=== PATIENT | female | born 1950 | race Two or more races ===

== ENCOUNTER 2020-06-28 10:08 | Outpatient (REF) | payer MEDICARE, MEDICAID, SELFPAY ==
--- NOTE | 2020-06-28 | US_ITS ---
EXAMINATION: US ABDOMEN COMPLETE CLINICAL INFORMATION: Right upper quadrant pain. Evaluate for cholelithiasis. COMPARISON: None TECHNIQUE: Real-time imaging of the abdominal viscera. FINDINGS: PANCREAS: Visualized portions unremarkable. ABDOMINAL AORTA: Unremarkable. INFERIOR VENA CAVA: Unremarkable. LIVER: Unremarkable. GALLBLADDER: Incompletely distended containing moderate sludge and gallstones measuring up to 3.8 cm (image 34, series 1). No mural thickening or pericholecystic fluid. COMMON BILE DUCT: Normal in caliber measuring 0.4 cm in diameter. RIGHT KIDNEY: 9.2 cm. An echogenic focus in the lower pole measures 0.2 cm. LEFT KIDNEY: 10.2 cm. Unremarkable. SPLEEN: Normal. The spleen measures 8.6 cm in maximum dimension. FREE FLUID: None. IMPRESSION: 1. Cholelithiasis and significant sludge without evidence for acute cholecystitis. 2. Nonobstructing 0.2 cm left lower pole adrenal calculus.
== END 2020-06-28 10:09 | disposition home or self-care (01) ==
LOC: HO.US 10:08
PROVIDERS: PCP Internal Medicine; Visit Provider Internal Medicine
DX: K81.0 Acute cholecystitis (principal)
CPT/HCPCS: 76700

== ENCOUNTER 2020-07-08 12:24 | Outpatient (REF) | payer MEDICARE, MEDICAID, SELFPAY | END 2020-07-08 12:25 | disposition home or self-care (01) | LOC: HO.HMGCLDS 12:24 | PROVIDERS: PCP Internal Medicine; Visit Provider Internal Medicine | DX: Z20.828 Contact with and (suspected) exposure to other viral communicable diseases (principal) | CPT/HCPCS: 87635 ==

== ENCOUNTER → 2020-07-28 14:52 | Outpatient (BNVA) | payer MEDICARE, MEDICAID, SELFPAY | PROVIDERS: PCP Internal Medicine; Visit Provider Surgery | DX: K80.20 Calculus of gallbladder without cholecystitis without obstruction (principal) | CPT/HCPCS: 99212 ==

== ENCOUNTER → 2020-09-23 10:27 | Outpatient (BNVA) | payer MEDICARE, MEDICAID, SELFPAY | PROVIDERS: PCP Internal Medicine; Visit Provider Urology | DX: N20.0 Calculus of kidney (principal) | CPT/HCPCS: 99202 ==

== ENCOUNTER → 2021-01-06 13:51 | Outpatient (BNVA) | payer MEDICARE, MEDICAID, SELFPAY | PROVIDERS: PCP Internal Medicine; Visit Provider Internal Medicine ==

== ENCOUNTER 2021-11-14 12:27 | Outpatient (REF) | payer MEDICARE, MEDICAID, SELFPAY ==
--- NOTE | ~2021-11-14 | US_ITS ---
EXAMINATION: US VENOUS ULTRASOUND WITH DOPPLER LOWER EXTREMITY, RIGHT CLINICAL INFORMATION: Personal history of venous thrombosis. COMPARISON: None TECHNIQUE: Ultrasound of the deep veins is performed from the hip to the calf with compression sonography and color and pulse Doppler assessment. Spectral analysis with color-flow imaging is performed. FINDINGS: There is normal venous compression and respiratory variation and augmented flow. The visualized common femoral vein, superficial femoral vein, profunda femoral vein, popliteal vein, and the trifurcation region shows no evidence of deep venous thrombosis. There is no significant popliteal fossa cyst. The peroneal vein is suboptimally visualized. If the patient's symptoms persist, followup ultrasound in 5 days 7 days might be of value to exclude proximal propagation from a non-visualized calf vein. US/US venous duplex LE RT IMPRESSION: No DVT demonstrated in the right lower extremity.
== END 2021-11-14 12:28 | disposition home or self-care (01) ==
LOC: HO.US 12:27
PROVIDERS: PCP Internal Medicine; Visit Provider Family Medicine
DX: M79.89 Other specified soft tissue disorders (principal); R23.8 Other skin changes; Z86.718 Personal history of other venous thrombosis and embolism
CPT/HCPCS: 93971

== ENCOUNTER 2022-07-18 15:43 | Outpatient (REF) | payer MEDICARE, MEDICAID, SELFPAY ==
--- NOTE | ~2022-07-18 | MM_ITS ---
EXAMINATION: MM SCREENING DIGITAL BREAST TOMOSYNTHESIS, BILATERAL CLINICAL INFORMATION: Screening. Asymptomatic. The lifetime risk of breast cancer based on the Tyrer-Cuzick Model is 3.1%. COMPARISON: Mammography: March 28, 2019 and studies dating back to July 29, 2000 TECHNIQUE: Digital breast tomosynthesis is performed in both the craniocaudal and mediolateral oblique views along with computer-aided detection (CAD). Synthesized 2D images are generated from the tomosynthesis. FINDINGS: The breasts are heterogeneously dense, which may obscure small masses (ACR BI-RADS breast composition Category c). There are no significant masses, abnormal calcifications, or other abnormalities. MM/MM tomosynthesis screening BI IMPRESSION: No significant changes ASSESSMENT: BI-RADS 1: Negative RECOMMENDATION: Routine annual mammography screening. This patient's information was entered into a reminder system with a target due date for their next mammogram.
== END 2022-07-18 15:44 | disposition home or self-care (01) ==
LOC: HO.MAMMO 15:43
PROVIDERS: PCP Internal Medicine; Visit Provider Internal Medicine
DX: Z12.31 Encounter for screening mammogram for malignant neoplasm of breast (principal)
CPT/HCPCS: 77063; 77067

== ENCOUNTER 2022-08-06 06:23 | Emergency (ER) | payer MEDICARE, MEDICAID, SELFPAY ==
--- NOTE | ~2022-08-06 | CT_ITS ---
EXAMINATION: CT HEAD WITHOUT CONTRAST CLINICAL INFORMATION: Fall. COMPARISON: There are no prior studies available for comparison. TECHNIQUE: Multidetector CT imaging of the head was obtained without the use of intravenous contrast. Coronal and sagittal reformatted images were generated at the technologist workstation. This CT examination was performed using dose optimization techniques as appropriate, variously including the following: *Automated exposure control *Adjustment of mA and/or kV according to patient size (this includes techniques or standardized protocols for targeted exams where dose is matched to indication/reason for exam; i.e. extremities or head) *Use of iterative reconstruction technique DLP: 622 mGy-cm. FINDINGS: There are sequelae of a right parietal craniotomy. There is a JELLY MAKER shunt catheter from the right parietal region, with the tip in the posterior body of the right lateral ventricle. There is extensive gliosis and encephalomalacia in the right frontoparietal region, and there is adjacent ex vacuo dilatation of the trigone, and the occipital and temporal horns of the right lateral ventricle. Overall, the ventricles are prominent. In addition to the changes in the brain parenchyma described above, there are scattered areas of low attenuation in the periventricular and subcortical white matter, which are most consistent with chronic microvascular ischemic changes. There is no evidence of acute intracranial hemorrhage or territorial infarction. No abnormal mass-effect or midline shift is seen. Overall, saucedo-white matter differentiation is well preserved. No extra-axial fluid collections are identified. There are no acute osseous or soft tissue abnormalities. The mastoid air cells and visualized paranasal sinuses are well aerated.. CT/CT head/brain wo IV con IMPRESSION: 1. There are no acute bleeds or territorial infarcts. 2. There are sequelae of a right parietal craniotomy with extensive underlying cast encephalomalacia with adjacent ex vacuo dilatation of the right lateral ventricle. No new masses are demonstrated. 3. There is a right parietal JELLY MAKER shunt catheter with the tip in the body of the right lateral ventricle. 4. Overall there is diffuse volume loss and there are chronic microvascular ischemic changes.
[2022-08-06 06:55] VITALS: BP 116/58; PULSE 83; RESP 18; TEMP 36.7; O2SAT 98; BMI 21.0
[2022-08-06 07:31] LABS: COVID-19 Test Negative (Negative)
--- NOTE | 2022-08-06 08:17 | ED.GENADULT ---
HPI - General Adult General Chief complaint: General Medical Stated complaint: fall l leg pain Time Seen by Provider: 08/06/22 07:34 Source: patient and family (Daughter) Mode of arrival: ambulatory Limitations: no limitations History of Present Illness HPI narrative: 71 year-old female history of stroke left her with left hemiparesis mostly wheelchair bound, patient still able to ambulate and walk slowly at home, patient woke up trying to go to the bathroom and fell landing on her buttock no head injury no neck injuries. Related Data Home Medications Medication Instructions Recorded Confirmed acetaminophen 500 mg tablet 500 mg PO Q6H PRN 10/18/20 11/14/21 (Tylenol Extra Strength) Previous Rx's Medication Instructions Recorded hosptial bed #1 ea 10/18/20 sulfamethoxazole 800 1 tab PO Q12H 10 days #20 tabs 11/24/21 mg-trimethoprim 160 mg tablet (Bactrim DS) cefuroxime axetil 500 mg tablet 500 mg PO BID #14 tabs 08/06/22 Allergies Allergy/AdvReac Type Severity Reaction Status Date / Time No Known Allergies Allergy Verified 11/24/21 09:04 [No Known Allergies*] Review of Systems Review of Systems: All other systems are reviewed and are negative Constitutional: Reports as per HPI and Reports no additional constitutional complaints Eyes: Reports as per HPI and Reports no additional eye complaints Reports system reviewed and no additional complaints, except as documented Cardiovascular: Reports as per HPI and Reports no additional cardiovascular complaints Respiratory: Reports as per HPI and Reports no additional respiratory complaints Gastrointestinal: Reports as per HPI and Reports no additional gastrointestinal complaints Genitourinary: Reports no additional female genitourinary complaints Musculoskeletal: Reports no additional musculoskeletal complaints Skin/Breast: Reports system reviewed and no additional complaints, except as docu Psychiatric: Reports no additional psychiatric complaints Endocrine: Reports no additional endocrine complaints Hematologic/Lymphatic: Reports no additional hematologic/lymphatic complaints Allergic/Immunologic: Reports no additional allergic/immunologic complaints Reports system reviewed and no additional complaints, except as documented and Reports Abnormal speech present [facility] Past Medical History Medical History Acute cholecystitis Adrenal abnormality Cholelithiasis without cholecystitis History of stroke Left hemiplegia Renal calculi Surgical History Fracture of right hip requiring operative repair History of brain surgery Family History Family History Brother History of bone cancer History of pancreatic cancer Father History of skin cancer of unknown type Social History Social History Alcohol intake: never Advance Directives: Yes Advance Directives Information Provided: Yes Advance Directives on File: No Physical Exam ED Vital Signs: Vital Signs - 24 hr 08/06/22 06:55 08/06/22 12:18 Temperature 98.1 F 99.5 F Pulse Rate 83 82 Respiratory Rate 18 16 Blood Pressure 116/58 L 121/63 Pulse Oximetry 98 95 Oxygen Delivery Method Room Air Room Air BMI result Body Mass Index 21.0 Vital signs have been reviewed as appeared to be correct. Blood pressure normal. Heart rate normal. Respiration rate normal. Temperature normal. Oxygen saturation normal. Appearance: Alert. Oriented X3. No acute distress. Head: Normal external exam. Normocephalic. Atraumatic. No Gonzalez signs noted. No raccoon eyes noted Eyes: PERRLA. EOMI. Conjunctiva and sclera normal. Eyelids normal. ENT: TM's Normal. Pharynx normal. Uvula midline. Moist mucous membranes. No trismus noted. No drooling noted. No muffled voice noted. Neck: Normal inspection. Neck supple. FROM. No adenopathy. Thyroid Normal. No meningeal signs. No neck mass noted. CVS: Normal heart rate and rhythm. Heart sound normal. No murmurs noted. Pulses normal throughout. Respiratory: No respiratory distress. Painless inspiration. Breath sounds normal. No wheezes/rales/rhonchi noted. Chest nontender. No accessory muscle usage noted or decreased air movement noted. Abdomen: Soft and nontender. Bowel sounds normal in all 4 quadrants. No distention noted. No organomegaly noted. No visible injury noted. Back: No CVA tenderness. Full range of motion noted. Skin: Skin warm and dry. Normal skin color. Normal skin turgor. No rashes/lesions/lacerations noted. Extremities: No lower extremity edema. Extremities exhibit normal range of motion. Extremities nontender. Neuro: Oriented X 3. Cranial nerve exam: II-XII are grossly intact Pre-existing left hemipareses. No sensory deficit. Reflexes normal. Course Course Course Narrative: 71-year-old female mostly wheelchair-bound but able to ambulate few steps at home had mechanical fall in the bathroom this morning, no acute injuries, labs and UA revealed a UTI will start the patient on cefuroxime. Patient was able to take few steps walking in the ED at her baseline. Medications Administered Discontinued Medications Generic Name Dose Route Start Last Admin Trade Name Vinnieq PRN Reason Stop Dose Admin Cefuroxime Axetil 500 mg 08/06/22 11:48 08/06/22 12:20 Cefuroxime Axetil 500 Mg Tablet PO 08/06/22 11:49 500 mg ONCE ONE Administration Medical Decision Making Lab Data Lab results reviewed: Yes I reviewed the patient's lab results. Result diagrams: 08/06/22 08:19 08/06/22 08:20 Labs: Lab Results 08/06/22 08/06/22 08/06/22 Range/Units 07:11 08:19 08:20 WBC 4.9 (4.8-10.8) X10*3/uL RBC 4.44 (4.20-5.50) X10*6/uL Hgb 12.1 (12.0-16.0) g/dl Hct 39.8 (37.0-47.0) % MCV 89.6 (80.0-98.0) fL MCH 27.3 (27.0-33.0) pg MCHC 30.4 L (31.0-35.0) g/dl RDW 11.9 (11.0-16.0) % Plt Count 152 L (160-400) X10*3/uL MPV 9.9 (9.4-12.3) fL Absolute Nucleated RBC 0.000 (0.0-0.012) X10*3/uL Nucleated RBC % (auto) 0.0 (0.0-0.2) /100WBC Sodium 140 (135-145) mmol/L Potassium 4.6 (3.3-5.1) mmol/L Chloride 108 (96-108) mmol/L Carbon Dioxide 18 L (22-29) mmol/L Anion Gap 19 (12-20) BUN 14 (9-16) mg/dL Creatinine 0.79 (0.5-1.4) mg/dL Estim Creat Clear Calc 52.4 Estimated GFR > 60 Random Glucose 96 (60-115) mg/dL Calcium 9.3 (8.4-10.2) mg/dL Total Creatine Kinase 43 (26-140) U/L Troponin I High Sens (<3.5-17.0) ng/L Urine Color Urine Appearance Urine pH (5.0-9.0) Ur Specific Electra (1.005-1.025) Urine Protein (Neg-Trace) mg/dL Urine Glucose (UA) (Negative) mg/dL Urine Ketones (Negative) mg/dL Urine Blood (Negative) Urine Nitrite (Negative) Ur Leukocyte Esterase (Negative) Urine RBC (0-2) /HPF Urine WBC (0-5) /HPF Ur Squamous Epith Cells (0-2) /HPF Urine Bacteria (None Seen) Hyaline Casts (0-2) /LPF COVID-19 (NORI) Negative (Negative) COVID-19 Clin Com See Note 08/06/22 08/06/22 Range/Units 11:29 11:35 WBC (4.8-10.8) X10*3/uL RBC (4.20-5.50) X10*6/uL Hgb (12.0-16.0) g/dl Hct (37.0-47.0) % MCV (80.0-98.0) fL MCH (27.0-33.0) pg MCHC (31.0-35.0) g/dl RDW (11.0-16.0) % Plt Count (160-400) X10*3/uL MPV (9.4-12.3) fL Absolute Nucleated RBC (0.0-0.012) X10*3/uL Nucleated RBC % (auto) (0.0-0.2) /100WBC Sodium (135-145) mmol/L Potassium (3.3-5.1) mmol/L Chloride (96-108) mmol/L Carbon Dioxide (22-29) mmol/L Anion Gap (12-20) BUN (9-16) mg/dL Creatinine (0.5-1.4) mg/dL Estim Creat Clear Calc Estimated GFR Random Glucose (60-115) mg/dL Calcium (8.4-10.2) mg/dL Total Creatine Kinase (26-140) U/L Troponin I High Sens 4.4 (<3.5-17.0) ng/L Urine Color Yellow Urine Appearance Cloudy Urine pH 7.0 (5.0-9.0) Ur Specific Electra 1.020 (1.005-1.025) Urine Protein Negative (Neg-Trace) mg/dL Urine Glucose (UA) Negative (Negative) mg/dL Urine Ketones Negative (Negative) mg/dL Urine Blood Trace H (Negative) Urine Nitrite Negative (Negative) Ur Leukocyte Esterase Moderate (2+) H (Negative) Urine RBC 6-10 H (0-2) /HPF Urine WBC >50 H (0-5) /HPF Ur Squamous Epith Cells 0-2 (0-2) /HPF Urine Bacteria 4+ (None Seen) Hyaline Casts 0-2 (0-2) /LPF COVID-19 (NOIR) (Negative) COVID-19 Clin Com Imaging Data CT scan - head: Attestation: I personally reviewed and interpreted this imaging study as follows: Radiologist's impression: 1. There are no acute bleeds or territorial infarcts. ? 2. There are sequelae of a right parietal craniotomy with extensive underlying cast encephalomalacia with adjacent ex vacuo dilatation of the right lateral ventricle. No new masses are demonstrated. ? 3. There is a right parietal RED CAP shunt catheter with the tip in the body of the right lateral ventricle. ? 4. Overall there is diffuse volume loss and there are chronic microvascular ischemic changes. Discharge Plan Discharge Clinical Impression: UTI (urinary tract infection), Accident due to mechanical fall without injury Patient Disposition: Home, Self-Care Instructions: Urinary Tract Infection in Older Adults (ED) Prescriptions: New cefuroxime axetil 500 mg tablet 500 mg PO BID Qty: 14 0RF No Action acetaminophen [Tylenol Extra Strength] 500 mg tablet 500 mg PO Q6H PRN (DME) hosptial bed See Rx Instructions .Route .MEDSUPPLY Qty: 1 0RF Rx Instructions: As directed sulfamethoxazole-trimethoprim [Bactrim DS] 800-160 mg tablet 1 tab PO Q12H 10 Days Qty: 20 0RF Referrals: Elsa Denis MD [Primary Care Provider] -
[2022-08-06 08:32] LABS: Hematocrit 39.8 % (37.0-47.0); Hemoglobin 12.1 g/dl (12.0-16.0); Mean Corpuscular HGB Conc 30.4 g/dl (31.0-35.0); Mean Corpuscular Hemoglobin 27.3 pg (27.0-33.0); Mean Corpuscular Volume 89.6 fL (80.0-98.0); Mean Platelet Volume 9.9 fL (9.4-12.3); Platelet Count 152 X10*3/uL (160-400); Red Blood Count 4.44 X10*6/uL (4.20-5.50); Red Cell Distribution Width 11.9 % (11.0-16.0); White Blood Count 4.9 X10*3/uL (4.8-10.8)
[2022-08-06 09:46] LABS: Anion Gap 19 (12-20); Blood Urea Nitrogen 14 mg/dL (9-16); Calcium 9.3 mg/dL (8.4-10.2); Carbon Dioxide 18 mmol/L (22-29); Chloride 108 mmol/L (96-108); Creatinine Clr Calc Pharmacy 52.4; Estimated Glomerular Filt Rate > 60; Glucose Random 96 mg/dL (60-115); Potassium 4.6 mmol/L (3.3-5.1); Sodium 140 mmol/L (135-145)
[2022-08-06 11:35] LABS: Appearance Urine Cloudy; Color Urine Yellow; Glucose Urine UA Negative (Negative); Leukocyte Esterase Urine Moderate (2+) (Negative); Nitrite Urine Negative (Negative); UMIC TRIGGER UACC YES; Urine Blood Trace (Negative); Urine Ketones Negative (Negative); Urine Protein Negative (Neg-Trace)
[2022-08-06 11:38] LABS: Bacteria Urine 4+ (None Seen); Hyaline Casts Urine 0-2 /LPF (0-2); Squamous Epithelial Cell Urine 0-2 /HPF (0-2); UACC Culture Trigger YES; WBC Urine >50 /HPF (0-5)
[2022-08-06 12:02] LABS: Troponin-I High Sensitivity 4.4 ng/L (<3.5-17.0)
[2022-08-06 12:18] VITALS: BP 121/63; PULSE 82; RESP 16; TEMP 37.5; O2SAT 95
== END 2022-08-06 14:56 | disposition home or self-care (01) ==
PROVIDERS: Emergency Provider Emergency Medicine; PCP Internal Medicine
DX: S39.92XA Unspecified injury of lower back, initial encounter (principal); N39.0 Urinary tract infection, site not specified; R51.9 Headache, unspecified; W05.0XXA Fall from non-moving wheelchair, initial encounter; Y93.9 Activity, unspecified; Y92.9 Unspecified place or not applicable; Y99.9 Unspecified external cause status; Z20.822 Contact with and (suspected) exposure to COVID-19; Z79.899 Other long term (current) drug therapy
CPT/HCPCS: 36415; 70450; 80048; 81001; 82550; 84484; 85027; 87086; 87088; 87186; 87635; 99283

== ENCOUNTER 2022-09-29 14:25 | Outpatient (REF) | payer MEDICARE, MEDICAID, SELFPAY ==
--- NOTE | ~2022-09-29 | MM_ITS ---
EXAMINATION: BONE DENSITOMETRY CLINICAL INDICATION: Asymptomatic menopausal state. COMPARISON: None (current study represents initial baseline exam). TECHNIQUE: Using a [employer]ex DXA System (software version: 13.1) manufactured by [employer], dual-energy x-ray absorptiometry was performed of the lumbar spine and left hip. The images are of good technical quality. Summary results are attached. FINDINGS: AP SPINE L1-L4: BMD 0.857 g/cm2, Z-score -0.6, T-score -2.7, osteoporosis. LEFT FEMUR, NECK: BMD 0.564 g/cm2, Z-score -1.4, T-score -3.4, osteoporosis. LEFT FEMUR, TOTAL: BMD 0.560 g/cm2, Z-score -1.8, T-score -3.6, osteoporosis. IDENTIFIED RISK FACTORS: Osteoporosis. Recurrent falls. Low calcium intake. Parental hip fracture. Secondary osteoporosis (early menopause). Menopause. Left oophorectomy. HISTORY OF FRACTURE: Hip. Wrist. MEDICATIONS: None listed. MM/XR DEXA axial skeleton IMPRESSION: 1. DIAGNOSIS: Osteoporosis based on the lowest T-score value of -3.6 in the total femur applying World Health Organization criteria. 2. 10-YEAR FRACTURE RISK PREDICTION, FRAX: According to the guidelines, FRAX calculation should only be performed on patients in the osteopenia bone density category. Therefore, FRAX was not performed on this patient.? 3. Treatment Recommendations: NOF guidelines recommend consideration for treatment in postmenopausal women and men age 50 and older presenting with the following: -A hip or vertebral (clinical or morphometric) fracture. -T-score less than or equal to -2.5 at the femoral neck or spine after appropriate evaluation to exclude secondary causes. -Low bone mass at the hip or spine and a 10-year fracture probability by FRAX of greater than or equal to 3% for hip fracture or greater than or equal to 20% for major osteoporotic fracture based on the [place] adapted WHO algorithm. 4. Other Recommendations: All treatment decisions require clinical judgment and consideration of individual patient factors, including patient preferences, comorbidities, previous drug use, risk factors not captured in the FRAX model (e.g. frailty, falls, vitamin D deficiency, increased bone turnover, interval significant decline in bone density) and possible under or overestimation of fracture risk by FRAX. Additional medical evaluation for secondary cause of low bone mineral density may be appropriate. FUTURE SCAN RECOMMENDATION: People with diagnosed cases of osteoporosis or at high risk for fracture should have regular bone mineral density tests. For patients eligible for Medicare, routine testing is allowed once every 2 years. The testing frequency can be increased to one year for patients who have rapidly progressing disease, those who are receiving or discontinuing medical therapy to restore bone mass, or have additional risk factors.
== END 2022-09-29 14:26 | disposition home or self-care (01) ==
LOC: HO.MAMMO 14:25
PROVIDERS: PCP Internal Medicine; Visit Provider Nurse Practitioner Family
DX: Z13.820 Encounter for screening for osteoporosis (principal); Z78.0 Asymptomatic menopausal state
CPT/HCPCS: 77080

== ENCOUNTER → 2022-10-20 10:57 | Outpatient (BNVA) | payer MEDICARE, MEDICAID, SELFPAY | PROVIDERS: PCP Internal Medicine; Visit Provider Internal Medicine Endocrinology, Diabetes & Metabolism | DX: M81.0 Age-related osteoporosis without current pathological fracture (principal) | CPT/HCPCS: 99202 ==

== ENCOUNTER 2022-10-20 12:06 | Outpatient (REF) | payer MEDICARE, MEDICAID, SELFPAY ==
[2022-10-20 14:30] LABS: Phosphorus 3.6 mg/dL (2.7-4.5)
[2022-10-20 14:48] LABS: Free T4 (Free Thyroxine) 1.27 ng/dL (0.71-1.85); Thyroid Stimulating Hormone 1.44 uIU/mL (0.32-4.0); Vitamin D 25-OH Total 22.4 ng/mL (>30)
[2022-10-23 14:48] LABS: Prot Elec - Albumin 3.9 g/dL (3.8-4.8); Prot Elec - Alpha1 0.3 g/dL (0.2-0.3); Prot Elec - Alpha2 0.9 g/dL (0.5-0.9); Prot Elec - Beta 1 0.4 g/dL (0.4-0.6); Prot Elec - Beta 2 0.3 g/dL (0.2-0.5); Prot Elec - Total Protein 6.7 g/dL (6.1-8.1)
== END 2022-10-20 12:07 | disposition home or self-care (01) ==
LOC: HO.10HDL 12:06
PROVIDERS: Visit Provider Internal Medicine Endocrinology, Diabetes & Metabolism
DX: M81.0 Age-related osteoporosis without current pathological fracture (principal); R53.83 Other fatigue; R53.81 Other malaise
CPT/HCPCS: 82306; 84100; 84165; 84439; 84443; 86335

== ENCOUNTER 2022-10-23 07:59 | Outpatient (REF) | payer MEDICARE, MEDICAID, SELFPAY ==
[2022-10-23 17:52] LABS: Creatinine, 24Hr Urine 0.5 G/Day (1.0-2.0); Total Volume 24 Hour Urine 500 mL
[2022-10-25 17:18] LABS: Calcium, 24 Hr Urine 57 mg/24 h; Calcium/Creatinine Ratio 105 mg/g creat (30-275); Creatinine 24Hr Urine 0.54 g/24 h (0.50-2.15)
== END 2022-10-23 08:00 | disposition home or self-care (01) ==
LOC: HO.10HDLNP 07:59
PROVIDERS: Visit Provider Internal Medicine Endocrinology, Diabetes & Metabolism
DX: M81.0 Age-related osteoporosis without current pathological fracture (principal)
CPT/HCPCS: 82340; 82570

== ENCOUNTER 2022-11-13 07:32 | Outpatient (REF) | payer MEDICARE, MEDICAID, SELFPAY ==
[2022-11-13 08:53] LABS: Cholesterol 237 mg/dL; HDL Cholesterol 73 mg/dL; LDL Cholesterol Calculated 143 mg/dl; Triglycerides 107 mg/dL
[2022-11-13 09:11] LABS: TSH reflex Free T4 3.18 uIU/mL (0.32-4.0)
== END 2022-11-13 07:33 | disposition home or self-care (01) ==
LOC: HO.LAB 07:32
PROVIDERS: PCP Internal Medicine; Visit Provider Nurse Practitioner Family
DX: Z00.00 Encounter for general adult medical examination without abnormal findings (principal); Z78.0 Asymptomatic menopausal state
CPT/HCPCS: 36415; 80061; 82306; 84443

== ENCOUNTER → 2023-01-23 09:47 | Outpatient (BNVA) | payer MEDICARE, MEDICAID, SELFPAY | PROVIDERS: PCP Internal Medicine; Visit Provider Internal Medicine Endocrinology, Diabetes & Metabolism | DX: M81.0 Age-related osteoporosis without current pathological fracture (principal) | CPT/HCPCS: 99212 ==

== ENCOUNTER → 2023-03-20 10:02 | Outpatient (BNVA) | payer MEDICARE, MEDICAID, SELFPAY | PROVIDERS: PCP Internal Medicine; Visit Provider Internal Medicine Endocrinology, Diabetes & Metabolism | DX: M81.0 Age-related osteoporosis without current pathological fracture (principal) | CPT/HCPCS: 96372; J3111 ==

== ENCOUNTER 2023-03-20 10:50 | Outpatient (REF) | payer MEDICARE, MEDICAID, SELFPAY ==
[2023-03-20 14:21] LABS: Vitamin D 25-OH Total 59.5 ng/mL (>30)
== END 2023-03-20 10:51 | disposition home or self-care (01) ==
LOC: HO.10HDL 10:50
PROVIDERS: Visit Provider Internal Medicine Endocrinology, Diabetes & Metabolism
DX: M81.0 Age-related osteoporosis without current pathological fracture (principal)
CPT/HCPCS: 36415; 82306

== ENCOUNTER 2023-03-29 10:12 | Emergency (ER) | payer OTHER, SELFPAY ==
[2023-03-29 10:20] VITALS: BP 106/55; PULSE 106; RESP 16; TEMP 37.5; O2SAT 106; BMI 21.5
[2023-03-29 10:47] VITALS: BP 127/59; PULSE 100; RESP 16; TEMP 37.4; O2SAT 97
--- NOTE | 2023-03-29 10:48 | PC.NURSE ---
pt axox4, PERRLA, skin warm and dry, color appropriate to ethnicity. weakness of L. upper and lower extremities, pt states this is her baseline following stroke 2 years ago. good strength of R. upper and lower extremities. pt reports increased weakness/difficulty walking x 1 month, worsening x 3 days. also reports nasal congestion and dry cough x 3 days. daughter at bedside; both deny having questions at this time, awaiting primary eval.
--- NOTE | 2023-03-29 10:58 | ED.WEAKNESS ---
HPI - Weakness General Chief complaint: Weakness Stated complaint: L side weakness Time Seen by Provider: 03/29/23 10:35 History of Present Illness HPI Narrative: Patient is a 72-year-old female with a history of CVA with left-sided weakness in the past. History of high cholesterol patient presented today with having coughing upper respiratory symptoms generalized malaise this been ongoing for the last 2 days. Patient had a low-grade fever generalized malaise. Feels the left side baseline is weak but is slightly weaker than usual. Patient from home. No pain on urination. No frequency. No chest pain or diaphoresis. Related Data Home Medications Medication Instructions Recorded Confirmed cholecalciferol (vitamin D3) 50 50 mcg PO DAILY 01/23/23 mcg (2,000 unit) chewable tablet Previous Rx's Medication Instructions Recorded aspirin 81 mg chewable tablet 81 mg PO DAILY 90 days #90 tabs 11/22/22 atorvastatin 10 mg tablet 10 mg PO BEDTIME 90 days #90 tabs 11/22/22 acetaminophen 325 mg tablet 650 mg PO Q6H PRN pain #60 tabs 11/28/22 (Tylenol) cane #1 ea 11/28/22 diclofenac sodium 1 % topical gel 2 g topical QID PRN pain #100 grams 11/28/22 (Arthritis Pain (diclofenac)) romosozumab-aqqg 210 mg/2.34 210 mg (2.34 mL) subcut .monthly 02/13/23 mL(105 mg/1.17 mL x2)subcutaneous #2.34 mL syringe (Evenity) Allergies Allergy/AdvReac Type Severity Reaction Status Date / Time No Known Allergies Allergy Verified 01/23/23 10:01 [No Known Allergies*] Review of Systems Review of Systems: Positive left-sided weakness Positive for low-grade fever Positive coughing congestion upper respiratory symptoms Yes all other systems are reviewed and are negative [facility] Past Medical History Attestation statement: The following information was validated with the patient. Medical History Acute cholecystitis Adrenal abnormality Cholelithiasis without cholecystitis History of stroke Left hemiplegia Renal calculi Surgical History Fracture of right hip requiring operative repair History of brain surgery Family History Family History Brother History of bone cancer History of pancreatic cancer Father History of skin cancer of unknown type Social History Social History Housing: Apartment Alcohol intake: never Patient Tobacco Use Status: Never used Tobacco Smoked in Last 30 Days: No e-Cigarette/Vaping Use: Never Used Second Hand Smoke Exposure: No Use of substances other than those prescribed or required for medical reasons: No Advance Directives: No service: No Current occupational status: disabled Cognitive needs: No Hearing needs: No Vision needs: Yes Physical Exam Vital Signs: Vital Signs: Last Vital Signs Temp 96.7 F L 03/29/23 13:37 Pulse 72 03/29/23 13:37 Resp 15 03/29/23 13:37 BP 115/56 L 03/29/23 13:37 Pulse Ox 98 03/29/23 13:37 O2 Del Method Room Air 03/29/23 13:37 BMI result Body Mass Index 21.5 Appearance: Alert. Oriented X3. No acute distress. Eyes: Pupils equal, round and reactive to light. ENT: Pharynx normal. Neck: Normal inspection. Neck supple. No lymph nodes noted. No crepitus CVS: Normal heart rate and rhythm. Pulses normal. Normal S1 and S2 Respiratory: No respiratory distress. Breath sounds normal. No Wheezing. No rales Abdomen: Soft and nontender. No rigidity. No distention. good BS x4 Skin: Skin warm and dry. Normal skin color. Normal skin turgor. Extremities: No lower extremity edema. Neurovascular intact to all extremities. No Lacerations. No Rash Neuro: Oriented X 3. Positive weakness noted on the left side patient has had hand grasp slightly weaker on the left versus the right rapid alternating movement off on the left side versus the right patient unable to keep up lower extremity against gravity for 10 seconds. Medications Administered Discontinued Medications Generic Name Dose Route Start Last Admin Trade Name Freq PRN Reason Stop Dose Admin Acetaminophen 975 mg 03/29/23 10:58 03/29/23 11:25 Acetaminophen 325 Mg Tablet PO 03/29/23 10:59 975 mg ONCE ONE Administration Medical Decision Making Medical Decision Making MDM Narrative: Positive coughing upper respiratory symptoms generalized malaise she has a previous history of left-sided weakness from a CVA. Patient thinks the left-sided weakness may be slightly worse. CT scan of the head showed no acute bleeding. My interpretation of patient's chest x-ray is grossly negative. O2 sat is 98% on room air. Patient COVID test came back positive. Likely causing the low-grade fever the generalized malaise a slightly increased weakness on 1 side. Patient is vaccinated x2 boosted x1 risk and benefit of getting antiviral medication explained to patient at this time would like to hold off on the antiviral medication given patient is vaccinated boosted. Patient is in stable condition. Will discharge home. Patient's urine showed no signs of infection Differential Diagnosis Differential Diagnoses: The differential diagnosis associated with the presentation includes Urinary tract infection, upper respiratory infection, pneumonia, CVA, COVID Admission/Observation Consideration of admission/observation: Escalation of care including admission/observation considered Patient's O2 sat is normal no need for admission Lab Data MDM Lab Attestation statement: I reviewed the patient's lab results. 03/29/23 11:18 03/29/23 11:18 Labs: Lab Results 03/29/23 03/29/23 03/29/23 Range/Units 11:18 11:18 11:18 WBC 5.3 (4.8-10.8) X10*3/uL RBC 5.53 H D (4.20-5.50) X10*6/uL Hgb 14.8 D (12.0-16.0) g/dl Hct 48.4 H D (37.0-47.0) % MCV 87.5 (80.0-98.0) fL MCH 26.8 L (27.0-33.0) pg MCHC 30.6 L (31.0-35.0) g/dl RDW 11.9 (11.0-16.0) % Plt Count 189 (160-400) X10*3/uL MPV 9.6 (9.4-12.3) fL Immature Gran % (Auto) 0.2 (0.0-0.4) % Neut % (Auto) 69.5 (45-73) % Lymph % (Auto) 17.2 L (20-40) % [place] % (Auto) 12.3 H (2-11) % Eos % (Auto) 0.4 (0-4) % Baso % (Auto) 0.4 (0-2) % Lymph # (Auto) 0.9 L (1.2-4.9) X10*3/uL [place] # (Auto) 0.7 (0.1-1.2) X10*3/uL Eos # (Auto) 0.0 (0.0-0.4) X10*3/uL Baso # (Auto) 0.0 (0.0-0.2) X10*3/uL Abs Immat Gran (auto) 0.01 (0.00-0.03) X10*3/uL Absolute Neuts (auto) 3.7 (2.0-8.3) x10*3/uL Absolute Nucleated RBC 0.000 (0.0-0.012) X10*3/uL Nucleated RBC % (auto) 0.0 (0.0-0.2) /100WBC PT 11.6 (10.0-13.1) SEC INR 1.0 (0.9-1.1) APTT 33.0 (26.0-36.4) SEC Sodium 139 (135-145) mmol/L Potassium 4.5 (3.3-5.1) mmol/L Chloride 105 (96-108) mmol/L Carbon Dioxide 25 (22-29) mmol/L Anion Gap 14 (12-20) BUN 9 (9-16) mg/dL Creatinine 0.84 (0.5-1.4) mg/dL Estim Creat Clear Calc 44.1 Estimated GFR > 60 POC Glucose (60-115) mg/dL Random Glucose 66 (60-115) mg/dL Calcium 10.2 D (8.4-10.2) mg/dL Phosphorus 2.3 L (2.7-4.5) mg/dL Magnesium 2.1 (1.6-2.6) mg/dL Total Creatine Kinase 70 (26-140) U/L Urine Color Urine Appearance Urine pH (5.0-9.0) Ur Specific [place] (1.005-1.025) Urine Protein (Neg-Trace) mg/dL Urine Glucose (UA) (Negative) mg/dL Urine Ketones (Negative) mg/dL Urine Blood (Negative) Urine Nitrite (Negative) Ur Leukocyte Esterase (Negative) Urine RBC (0-2) /HPF Urine WBC (0-5) /HPF Ur Squamous Epith Cells (0-2) /HPF Urine Bacteria (None Seen) Hyaline Casts (0-2) /LPF COVID-19 (NORI) (Negative) COVID-19 Clin Com 03/29/23 03/29/23 03/29/23 Range/Units 11:29 12:01 13:04 WBC (4.8-10.8) X10*3/uL RBC (4.20-5.50) X10*6/uL Hgb (12.0-16.0) g/dl Hct (37.0-47.0) % MCV (80.0-98.0) fL MCH (27.0-33.0) pg MCHC (31.0-35.0) g/dl RDW (11.0-16.0) % Plt Count (160-400) X10*3/uL MPV (9.4-12.3) fL Immature Gran % (Auto) (0.0-0.4) % Neut % (Auto) (45-73) % Lymph % (Auto) (20-40) % [place] % (Auto) (2-11) % Eos % (Auto) (0-4) % Baso % (Auto) (0-2) % Lymph # (Auto) (1.2-4.9) X10*3/uL [place] # (Auto) (0.1-1.2) X10*3/uL Eos # (Auto) (0.0-0.4) X10*3/uL Baso # (Auto) (0.0-0.2) X10*3/uL Abs Immat Gran (auto) (0.00-0.03) X10*3/uL Absolute Neuts (auto) (2.0-8.3) x10*3/uL Absolute Nucleated RBC (0.0-0.012) X10*3/uL Nucleated RBC % (auto) (0.0-0.2) /100WBC PT (10.0-13.1) SEC INR (0.9-1.1) APTT (26.0-36.4) SEC Sodium (135-145) mmol/L Potassium (3.3-5.1) mmol/L Chloride (96-108) mmol/L Carbon Dioxide (22-29) mmol/L Anion Gap (12-20) BUN (9-16) mg/dL Creatinine (0.5-1.4) mg/dL Estim Creat Clear Calc Estimated GFR POC Glucose 92 (60-115) mg/dL Random Glucose (60-115) mg/dL Calcium (8.4-10.2) mg/dL Phosphorus (2.7-4.5) mg/dL Magnesium (1.6-2.6) mg/dL Total Creatine Kinase (26-140) U/L Urine Color Yellow Urine Appearance Clear Urine pH 7.5 (5.0-9.0) Ur Specific [place] 1.010 (1.005-1.025) Urine Protein Negative (Neg-Trace) mg/dL Urine Glucose (UA) Negative (Negative) mg/dL Urine Ketones Negative (Negative) mg/dL Urine Blood Small (1+) H (Negative) Urine Nitrite Negative (Negative) Ur Leukocyte Esterase Trace H (Negative) Urine RBC 11-20 H (0-2) /HPF Urine WBC 0-5 (0-5) /HPF Ur Squamous Epith Cells 0-2 (0-2) /HPF Urine Bacteria None Seen (None Seen) Hyaline Casts 0-2 (0-2) /LPF COVID-19 (NORI) Positive A (Negative) COVID-19 Clin Com See Note Independent Interpretation I performed an independent interpretation of an: EKG and CT Scan Interpretation: My interpretation of patient's EKG showed a sinus rhythm heart rate is 90 [place] QRS QT within normal limits there is no acute ST segment elevation noted. CT scan of the head is grossly negative for any acute evidence of bleeding. Radiology Impression Discussion of test interpretation with radiology: I have reviewed the radiologist's reading. Prescription Management I considered prescription management with: Antiviral (Antiviral medication discussed with patient and family. I elected not to take the medication for now) Social Determinants Elderly patient Discharge Plan Discharge Clinical Impression: COVID-19 Patient Disposition: Home, Self-Care Instructions: COVID-19 (Coronavirus Disease 2019) (ED) Additional Instructions: Home isolation for at least 8 days from the onset of symptoms Prescriptions: No Action Evenity 210mg/2.34mL ( 105mg/1.17mLx2) syringe 210 mg subcut .monthly Qty: 2.34 11RF aspirin 81 mg tablet,chewable 81 mg PO DAILY 90 Days Qty: 90 3RF atorvastatin 10 mg tablet 10 mg PO BEDTIME 90 Days Qty: 90 1RF diclofenac sodium [Arthritis Pain (diclofenac)] 1 % gel 2 g topical QID PRN (Reason: pain) Qty: 100 0RF acetaminophen [Tylenol] 325 mg tablet 650 mg PO Q6H PRN (Reason: pain) Qty: 60 0RF (DME) cane Device See Rx Instructions .Route Qty: 1 0RF Rx Instructions: As directed cholecalciferol (vitamin D3) 50 mcg (2,000 unit) tablet,chewable 50 mcg PO DAILY Referrals: Elsa Denis MD [Primary Care Provider] - 04/02/23
[2023-03-29 13:02] VITALS: BP 107/59; PULSE 78; RESP 16; O2SAT 98
[2023-03-29 13:37] VITALS: BP 115/56; PULSE 72; RESP 15; TEMP 35.9; O2SAT 98
== END 2023-03-29 14:07 | disposition home or self-care (01) ==
PROVIDERS: Emergency Provider Emergency Medicine Emergency Medical Services; PCP Internal Medicine
DX: U07.1 COVID-19 (principal); R50.9 Fever, unspecified; I69.354 Hemiplegia and hemiparesis following cerebral infarction affecting left non-dominant side; E78.00 Pure hypercholesterolemia, unspecified; Z86.718 Personal history of other venous thrombosis and embolism; Z79.82 Long term (current) use of aspirin
CPT/HCPCS: 36415; 70450; 71045; 80048; 81001; 82550; 82947; 83735; 84100; 85025; 85610; 85730; 87635; 93005; 99284; 99285

== ENCOUNTER 2023-04-24 14:00 | Outpatient (AMB) | payer MEDICARE, MEDICAID, SELFPAY ==
--- NOTE | 2023-04-24 14:24 | AM.OFFVISNUR ---
Intake Intake Visit Reasons: evenity 2 Allergies No Known Allergies [No Known Allergies*] Allergy (Verified 01/23/23 10:01) Office Meds romosozumab-aqqg Performing Provider: Demetri Sánchez MD Administered by: Eyal Bartlett RN on 04/24/23 14:25 Dose Route Admin Location Lot Number Expiration Date [employer] Adolescent Specialist 210 mg subcut left and right arms [id number] 06/23/25 AMGEN Coding Diagnoses Assessment & Plan Assessment & Plan Orders: Orders AMB Romosozumab Injection Patient Supplied Today M81.0 - Age-related osteoporosis without current pathological fracture
== END 2023-04-24 14:23 | disposition home or self-care (01) ==
PROVIDERS: PCP Internal Medicine; Visit Provider Internal Medicine Endocrinology, Diabetes & Metabolism
DX: M81.0 Age-related osteoporosis without current pathological fracture (principal)

== ENCOUNTER → 2023-04-24 14:00 | Outpatient (BNVA) | payer MEDICARE, MEDICAID, SELFPAY | PROVIDERS: PCP Internal Medicine; Visit Provider Internal Medicine Endocrinology, Diabetes & Metabolism | DX: M81.0 Age-related osteoporosis without current pathological fracture (principal); Z79.620 Long term (current) use of immunosuppressive biologic | CPT/HCPCS: 96372; J3111 ==

== ENCOUNTER 2023-05-22 15:38 | Outpatient (AMB) | payer MEDICARE, MEDICAID, SELFPAY ==
--- NOTE | 2023-05-22 15:54 | AM.OFFVISNUR ---
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
== END 2023-05-22 16:05 | disposition home or self-care (01) ==
PROVIDERS: PCP Internal Medicine; Visit Provider Internal Medicine Endocrinology, Diabetes & Metabolism
DX: M81.0 Age-related osteoporosis without current pathological fracture (principal)

== ENCOUNTER → 2023-05-22 15:38 | Outpatient (BNVA) | payer MEDICARE, MEDICAID, SELFPAY | PROVIDERS: PCP Internal Medicine; Visit Provider Internal Medicine Endocrinology, Diabetes & Metabolism | DX: M81.0 Age-related osteoporosis without current pathological fracture (principal) | CPT/HCPCS: 96372; J3111 ==

== ENCOUNTER 2023-06-22 16:14 | Outpatient (AMB) | payer MEDICARE, MEDICAID, SELFPAY ==
--- NOTE | 2023-06-22 16:23 | AM.OFFVISNUR ---
Intake Intake Visit Reasons: Evenity 3 Allergies No Known Allergies [No Known Allergies*] Allergy (Verified 01/23/23 10:01) Office Meds romosozumab-aqqg 210 mg/2.34 mL(105 mg/1.17 mL x2)subcutaneous syringe Performing Provider: Demetri Sánchez MD Performing Location: [facility] Endocrinology Administered by: Eyal Bartlett RN on 06/22/23 16:23 Dose Route Admin Location Dispensed Lot Number Expiration Date [facility] Wire Brush Operator 210 mg subcut L and R arms 2.34 mL [id number] 09/23/25 AMGEN Coding Assessment & Plan Assessment & Plan Orders: Orders AMB Romosozumab Injection Patient Supplied Today M81.0 - Age-related osteoporosis without current pathological fracture
== END 2023-06-22 16:25 | disposition home or self-care (01) ==
PROVIDERS: PCP Internal Medicine; Visit Provider Internal Medicine Endocrinology, Diabetes & Metabolism
DX: M81.0 Age-related osteoporosis without current pathological fracture (principal)

== ENCOUNTER → 2023-06-22 16:14 | Outpatient (BNVA) | payer MEDICARE, MEDICAID, SELFPAY | PROVIDERS: PCP Internal Medicine; Visit Provider Internal Medicine Endocrinology, Diabetes & Metabolism | DX: M81.0 Age-related osteoporosis without current pathological fracture (principal) | CPT/HCPCS: 96372; J3111 ==

== ENCOUNTER 2023-07-20 16:01 | Outpatient (REF) | payer MEDICARE, SELFPAY | END 2023-07-20 16:02 | disposition home or self-care (01) | LOC: HO.MAMMO 16:01 | PROVIDERS: PCP Internal Medicine; Visit Provider Internal Medicine | DX: Z12.31 Encounter for screening mammogram for malignant neoplasm of breast (principal) | CPT/HCPCS: 77063; 77067 ==

== ENCOUNTER → 2023-07-20 16:15 | Outpatient (BNV) | payer MEDICARE, SELFPAY | PROVIDERS: PCP Internal Medicine; Visit Provider Radiology Diagnostic Radiology | DX: Z12.31 Encounter for screening mammogram for malignant neoplasm of breast (principal) | CPT/HCPCS: 77063; 77067 ==

== ENCOUNTER → 2023-07-23 16:20 | Outpatient (BNVA) | payer MEDICARE, MEDICAID, SELFPAY | PROVIDERS: PCP Internal Medicine; Visit Provider Internal Medicine Endocrinology, Diabetes & Metabolism | DX: M81.0 Age-related osteoporosis without current pathological fracture (principal) | CPT/HCPCS: 96372; J3111 ==

== ENCOUNTER 2023-08-29 16:21 | Outpatient (AMB) | payer MEDICARE, MEDICAID, SELFPAY ==
--- NOTE | 2023-08-29 16:37 | AM.OFFVISNUR ---
Intake Intake Visit Reasons: Evenity Allergies No Known Allergies [No Known Allergies*] Allergy (Verified 01/23/23 10:01) Office Meds romosozumab-aqqg 210 mg/2.34 mL(105 mg/1.17 mL x2)subcutaneous syringe Performing Provider: Demetri Sánchez MD Performing Location: [place] [facility] Administered by: Emilia Gutierrez LPN on 08/29/23 16:37 Dose Route Admin Location Dispensed Lot Number Expiration Date [facility] Manager Mac 210 mg subcut 2.34 mL [id number] 11/21/25 AMGEN Coding Assessment & Plan Assessment & Plan Orders: Orders AMB Romosozumab Injection Patient Supplied Today M81.0 - Age-related osteoporosis without current pathological fracture
== END 2023-08-29 16:36 | disposition home or self-care (01) ==
PROVIDERS: PCP Internal Medicine; Visit Provider Internal Medicine Endocrinology, Diabetes & Metabolism
DX: M81.0 Age-related osteoporosis without current pathological fracture (principal)

== ENCOUNTER → 2023-08-29 16:21 | Outpatient (BNVA) | payer MEDICARE, MEDICAID, SELFPAY | PROVIDERS: PCP Internal Medicine; Visit Provider Internal Medicine Endocrinology, Diabetes & Metabolism | DX: M81.0 Age-related osteoporosis without current pathological fracture (principal) | CPT/HCPCS: 96372; J3111 ==

== ENCOUNTER 2023-09-19 15:41 | Outpatient (AMB) | payer MEDICARE, MEDICAID, SELFPAY ==
[2023-09-19 15:42] VITALS: BP 112/68; BMI 23.2
--- NOTE | 2023-09-19 15:42 | A.OFFPC_ITS ---
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: No Accompanied by: Daughter Allergies No Known Allergies [No Known Allergies*] Allergy (Verified 09/19/23 16:00) Medication List - Last Reconciled 09/19/23 by Elsa Adams MD acetaminophen (Tylenol) 650 mg (2 x 325 mg) PO Q6H PRN aspirin 81 mg PO DAILY 90 days atorvastatin 10 mg PO BEDTIME 90 days cane As directed cholecalciferol (vitamin D3) 50 mcg PO DAILY diclofenac sodium 1% (Arthritis Pain (diclofenac)) 2 grams topical QID PRN romosozumab-aqqg (Evenity) 210 mg (2.34 mL) subcut .monthly Tobacco use date assessed: 11/28/22 Fall risk assessment: No Falls in past year Last assessed Fall Risk: 09/19/23 Dental Screening Dental Screen Date: 09/19/23 Did you have a dental visit in the last 12 months?: No Did you have a dental problem in the last 6 months where you did not have access to dental care?: No Was dental information given to patient?: Patient has dentist HPI HPI Comments History of Present Illness Details This is a 72-year-old female with left hemiplegia secondary to a stroke that comes today accompanied by daughter for her physical exam. Last mammogram was 2022 and was normal. Last colonoscopy was 2014 and next colonoscopy should be 2024. Still has left hemiplegia but is able to walk with no assistive device. Unable to climb stairs. No chest pain or shortness of breath. [facility] Medical History History of stroke Left hemiplegia Renal calculi Cholelithiasis without cholecystitis Adrenal abnormality Acute cholecystitis Surgical History Fracture of right hip requiring operative repair History of brain surgery Family History Brother History of bone cancer History of pancreatic cancer Father History of skin cancer of unknown type Social History Housing: Apartment Alcohol intake: never Patient Tobacco Use Status: Never used Tobacco e-Cigarette/Vaping Use: Never Used Second Hand Smoke Exposure: No service: No Current occupational status: disabled Cognitive needs: No Hearing needs: No Vision needs: Yes Questionnaire Thrive Questionnaire Date Thrive assessed: 11/28/22 FREEDOM-7 AMB Questionnaire FREEDOM-7 Date FREEDOM - 7 assessed: 11/22/22 Source: Developed by Drs. Demetri Lewis, Diamante White, Gagan Bullard and colleagues, with an educational analy from [employer]. Review of Systems Const All systems reviewed & are unremarkable except as noted in HPI and below Reports weakness Eyes Reports no additional complaints, Denies change in vision and Denies other visual disturbances Card Denies chest pain at rest, Denies chest pain with activity, Denies edema, Denies irregular heart rhythm, Denies claudication, Denies dyspnea, Denies dyspnea on exertion, Denies orthopnea, Denies paroxysmal nocturnal dyspnea and Denies slow heart rate Resp Denies cough, Denies dyspnea and Denies dyspnea on exertion GI Denies abdominal pain, Denies change in bowel habits, Denies excessive flatus, Denies nausea and Denies vomiting Denies urinary incontinence, Denies urinary hesitancy and Denies urinary urgency Musc Denies abnormal gait, Denies atrophy, Denies deformity and Denies limited range of motion Skin/Breast Denies bleeding lesions, Denies changing lesions and Denies rash Neuro Denies abnormal gait, Denies behavioral changes, Denies confusion, Denies lack of coordination and Reports weakness Psych Denies behavioral changes and Denies confusion Physical exam (Primary Care) Vital Signs: Last Vital Signs BP 112/68 09/19/23 15:42 BMI result Body Mass Index 23.2 Tobacco/Smoking Status: Tobacco use Status Tobacco use date assessed 11/28/22 09/19/23 15:51 Patient Tobacco Use Status Never used Tobacco 09/19/23 15:51 e-Cigarette/Vaping Use Never Used 09/19/23 15:51 Thrive Assessment: Date of Thrive Assessment Date Thrive assessed 11/28/22 09/19/23 15:51 Const General: No confusion Orientation/consciousness: patient oriented x3 and No confusion HENMT Head: Yes normal to inspection, Yes normocephalic and Yes atraumatic Ears: external ears normal Eyes General: appearance normal, both eyes and all related structures Eyelids: Yes eyelids normal Conjunctivae: conjunctivae normal Neck Neck: Yes normal visual inspection and Yes supple Resp Effort & Inspection: normal respiratory effort Auscultation: clear to auscultation bilaterally Cardio Jugular venous distension: no JVD Rate: regular rate Rhythm: regular rhythm Heart sounds: S1 normal heart sound present and S2 normal heart sound present GI Inspection: Yes normal to inspection Palpation (GI): Soft to palpation and nontender Auscultation: normal bowel sounds Skin General skin exam: no rashes or lesions noted Neuro General: patient oriented x3 and No confusion Motor exam (neuro): Abnormal motor strength present (3/5 in left side, 5/5 right side) Extrem General: Yes full ROM Psych Appearance: grossly normal Office Procedures Flu Questionnaire Does the patient have a severe egg allergy?: No Immunizations flu vacc [id number] 6mos up(PF) 60 mcg(15 mcgx4)/0.5 mL IM syringe Performing Provider: Elsa Adams MD [facility] Documented (not given) by: ISA Escudero on 09/19/23 16:09 Reason Not Given: Patient Refused Assessment and Plan Assessment & Plan (1) Pre-op evaluation: Code(s): Z01.818 - Encounter for other preprocedural examination (2) Adult general medical exam: Code(s): Z00.00 - Encounter for general adult medical examination without abnormal findings Plan: Repeat in a year. (3) Left hemiplegia: Code(s): G81.94 - Hemiplegia, unspecified affecting left nondominant side Plan: Continue family support. Orders: Orders Lipid Panel Today E78.5 - Hyperlipidemia, unspecified Comprehensive [place]. Panel Fast Today E78.00 - Pure hypercholesterolemia, unspecified Complete Blood Count Auto Diff Today D64.9 - Anemia, unspecified Influenza [id number] Immunization Today Z23 - Encounter for immunization Vitamin D 25-OH Total Today E55.9 - Vitamin D deficiency, unspecified ECG 12 lead EKG Today Z01.818 - Encounter for other preprocedural examination Medications: New sennosides (senna) 8.6 mg PO BEDTIME PRN 90 tabs 0RF constipation 90 days Coding Level of Care Code Est Pt Prev Care >65y(30331) Diagnoses Pre-op evaluation Z01.818 Adult general medical exam Z00.00 Left hemiplegia G81.94 Time Spent (min) 32
== END 2023-09-19 16:13 | disposition home or self-care (01) ==
PROVIDERS: Visit Provider Internal Medicine
DX: Z00.00 Encounter for general adult medical examination without abnormal findings (principal); G81.94 Hemiplegia, unspecified affecting left nondominant side
CPT/HCPCS: 99397

== ENCOUNTER 2023-09-20 09:04 | Outpatient (REF) | payer MEDICARE, SELFPAY ==
--- NOTE | 2023-09-20 09:11 | ECG_ITS ---
Test Reason : pre op Blood Pressure : / mmHG Vent. Rate : 070 BPM Atrial Rate : 070 BPM P-R Int : 158 ms QRS Dur : 066 ms QT Int : 380 ms P-R-T Axes : 075 029 066 degrees QTc Int : 410 ms Normal sinus rhythm Nonspecific ST abnormality Borderline ECG When compared with ECG of 29-MAR-2023 11:53, No significant change was found Referred By: Elsa Adams Electronically Signed By:PRETTY MAURER
[2023-09-20 09:25] LABS: MANUAL DIFF FLAG NO
[2023-09-20 09:37] LABS: Basophils Absolute Auto 0.1 X10*3/uL (0.0-0.2); Basophils Percent Auto 1.4 % (0-2); Eosinophils Absolute Auto 0.2 X10*3/uL (0.0-0.4); Eosinophils Percent Auto 3.1 % (0-4); Hematocrit 44.6 % (37.0-47.0); Hemoglobin 13.8 g/dl (12.0-16.0); Imm Gran Abs Auto 0.01 X10*3/uL (0.00-0.03); Imm Gran Pct Auto 0.2 % (0.0-0.4); Lymphocytes Absolute Auto 2.1 X10*3/uL (1.2-4.9); Lymphocytes Percent Auto 41.3 % (20-40); Mean Corpuscular HGB Conc 30.9 g/dl (31.0-35.0); Mean Corpuscular Hemoglobin 27.4 pg (27.0-33.0); Mean Corpuscular Volume 88.7 fL (80.0-98.0); Mean Platelet Volume 9.9 fL (9.4-12.3); Monocytes Absolute Auto 0.4 X10*3/uL (0.1-1.2); Monocytes Percent Auto 7.4 % (2-11); Neutrophils Absolute Auto 2.4 x10*3/uL (2.0-8.3); Neutrophils Percent Auto 46.6 % (45-73); Platelet Count 180 X10*3/uL (160-400); Red Blood Count 5.03 X10*6/uL (4.20-5.50); Red Cell Distribution Width 11.9 % (11.0-16.0); White Blood Count 5.1 X10*3/uL (4.8-10.8)
[2023-09-20 10:18] LABS: Alanine Aminotransferase 10 U/L (0-31); Alkaline Phosphatase 94 U/L (39-117); Anion Gap 14 (12-20); Aspartate Amino Transferase 19 U/L (5-31); Bilirubin Total 1.2 mg/dL (0.0-1.0); Blood Urea Nitrogen 13 mg/dL (9-16); Calcium 9.5 mg/dL (8.4-10.2); Carbon Dioxide 24 mmol/L (22-29); Chloride 109 mmol/L (96-108); Cholesterol 212 mg/dL (<200); Estimated Glomerular Filt Rate > 60; Glucose Fasting 78 mg/dL (60-99); HDL Cholesterol 73 mg/dL (>40); LDL Cholesterol Calculated 125 mg/dL (<100); Potassium 3.8 mmol/L (3.3-5.1); Sodium 143 mmol/L (135-145); Total Protein 6.9 g/dL (6.5-8.0); Triglycerides 70 mg/dL (<150)
== END 2023-09-20 09:05 | disposition home or self-care (01) ==
LOC: HO.LAB 09:04
PROVIDERS: PCP Internal Medicine; Visit Provider Internal Medicine
DX: Z01.818 Encounter for other preprocedural examination (principal); E55.9 Vitamin D deficiency, unspecified; E78.5 Hyperlipidemia, unspecified; D64.9 Anemia, unspecified; E78.00 Pure hypercholesterolemia, unspecified
CPT/HCPCS: 36415; 80053; 80061; 82306; 85025; 93005

== ENCOUNTER → 2023-09-20 09:11 | Outpatient (BNV) | payer MEDICARE, SELFPAY | PROVIDERS: PCP Internal Medicine; Visit Provider Internal Medicine | DX: R94.31 Abnormal electrocardiogram [ECG] [EKG] (principal) | CPT/HCPCS: 93010 ==

== ENCOUNTER 2023-09-26 16:22 | Outpatient (AMB) | payer MEDICARE, MEDICAID, SELFPAY ==
--- NOTE | 2023-09-26 16:36 | AM.OFFVISNUR ---
Intake Intake Visit Reasons: Evenity Allergies No Known Allergies [No Known Allergies*] Allergy (Verified 09/19/23 16:00) Office Meds romosozumab-aqqg 210 mg/2.34 mL(105 mg/1.17 mL x2)subcutaneous syringe Performing Provider: Demetri Sánchez MD Performing Location: [facility] Administered by: Emilia Gutierrez LPN on 09/26/23 16:36 Dose Route Admin Location Dispensed Lot Number Expiration Date [facility] Coil Winder Strap 210 mg subcut Both upper arms 2.34 mL [id number] 01/22/24 AMGEN Coding Assessment & Plan Assessment & Plan Orders: Orders AMB Romosozumab Injection Patient Supplied Today M81.0 - Age-related osteoporosis without current pathological fracture
== END 2023-09-26 16:35 | disposition home or self-care (01) ==
PROVIDERS: PCP Internal Medicine; Visit Provider Internal Medicine Endocrinology, Diabetes & Metabolism
DX: M81.0 Age-related osteoporosis without current pathological fracture (principal)

== ENCOUNTER → 2023-09-26 16:22 | Outpatient (BNVA) | payer MEDICARE, MEDICAID, SELFPAY | PROVIDERS: PCP Internal Medicine; Visit Provider Internal Medicine Endocrinology, Diabetes & Metabolism | DX: M81.0 Age-related osteoporosis without current pathological fracture (principal) | CPT/HCPCS: 96372; J3111 ==

== ENCOUNTER 2023-09-27 08:59 | Outpatient (AMB) | payer MEDICARE, MEDICAID, SELFPAY ==
--- NOTE | 2023-09-27 09:05 | MHC.PC.OV ---
Vital Signs 09/27/23 09:06 Height 5 ft Weight 117 lb 4 oz BMI 22.9 BP 118/62 Blood Pressure Location Lt brachial Position Sitting Respiration 17 Pulse 60 Pulse Source Palpation Intake Visit Reasons: L eye cataract surgery-10/12 Channeler Required: No Accompanied by: Daughter Allergies No Known Allergies [No Known Allergies*] Allergy (Verified 09/27/23 09:31) Medication List - Last Reconciled 09/27/23 by Zaki Teran PA-C acetaminophen (Tylenol) 650 mg (2 x 325 mg) PO Q6H PRN aspirin 81 mg PO DAILY 90 days atorvastatin 10 mg PO BEDTIME 90 days cane As directed cholecalciferol (vitamin D3) 50 mcg PO DAILY diclofenac sodium 1% (Arthritis Pain (diclofenac)) 2 grams topical QID PRN romosozumab-aqqg (Evenity) 210 mg (2.34 mL) subcut .monthly sennosides (senna) 8.6 mg PO BEDTIME PRN 90 days Tobacco use date assessed: 09/27/23 Fall risk assessment: No Falls in past year Last assessed Fall Risk: 09/27/23 Dental Screening Dental Screen Date: 09/27/23 Did you have a dental visit in the last 12 months?: No Did you have a dental problem in the last 6 months where you did not have access to dental care?: No Was dental information given to patient?: No (dentures) HPI L eye cataract surgery-10/12 HPI Details Patient is a 72-year-old female here today for preop visit. 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 She is due for left eye cataract removal on 10/12/2023 CVA: Continues on aspirin and statin for the treatment of her CVA. Does have left-sided hemiplegia. She does receive a lot help from family.\ Otherwise patient has no significant history of MN or Congestive heart failure. Patient is not on any anticoagulation therapy though is on indefinite aspirin therapy due to CVA. Laboratory Tests 09/20/23 09:18 RBC 5.03 Hgb 13.8 Fasting Glucose 78 Cholesterol 212 H [facility] Medical History History of stroke Left hemiplegia Renal calculi Cholelithiasis without cholecystitis Adrenal abnormality Acute cholecystitis Surgical History Fracture of right hip requiring operative repair History of brain surgery Family History Brother History of bone cancer History of pancreatic cancer Father History of skin cancer of unknown type Social History Housing: Apartment Alcohol intake: never Patient Tobacco Use Status: Never used Tobacco e-Cigarette/Vaping Use: Never Used Second Hand Smoke Exposure: No service: No Current occupational status: disabled Cognitive needs: No Hearing needs: No Vision needs: Yes Questionnaire PHQ-9 Over the last 2 weeks, how often have you been bothered by any of the following problems? 1. Little interest or pleasure in doing things: not at all 2. Feeling down, depressed, or hopeless: not at all 3. Trouble falling or staying asleep, or sleeping too much: not at all 4. Feeling tired or having little energy: not at all 5. Poor appetite or overeating: not at all 6. Feeling bad about yourself - or that you are a failure or have let yourself or your family down: not at all 7. Trouble concentrating on things, such as reading the newspaper or watching television: not at all 8. Moving or speaking so slowly that other people could have noticed. Or the opposite - being so fidgety or restless that you have been moving around a lot more than usual: not at all 9. Thoughts that you would be better off or of hurting yourself in some way: not at all Total score: 0 Depression Screening Interpretation: Negative Depression Screening Done: Yes 73646 - PHQ-9 Billing: Yes Source: Developed by Drs. Demetri Lewis, Diamante White, Gagan Bullard and colleagues, with an educational analy from [employer]. Thrive Questionnaire Date Thrive assessed: 09/27/23 I am a: Patient What is your living situation today?: I have a steady place to live Within the past 12 months, did the food you bought not last and you didn't have the money to get more?: Never true Within the past 12 months, did you worry whether your food would run out before you got money to buy more?: Never true Do you have trouble paying for medicines?: No Do you have trouble getting transportation to medical appointments?: No Do you have trouble paying your heating and electricity bill?: No Do you have trouble taking care of your child, family member or friend?: No Do you have trouble with day-to-day activities such as bathing, preparing meals, shopping, managing finances, etc.?: No Are you currently unemployed and looking for a job?: No Are you interested in more education?: No Please select the resources that you would like help with: None Currently or been in a relationship where the following occur: no concerns reported AUDIT C Alcohol Use Questionnaire (AUDIT-C) 1. How often do you have a drink containing alcohol?: Never 3. How often do you have six or more drinks on one occasion?: Never Total Score: 0 FREEDOM-7 AMB Questionnaire FREEDOM-7 Date FREEDOM - 7 assessed: 09/27/23 Feeling nervous, anxious, or on edge: 0 = Not at all Not being able to stop or control worryin = Not at all Worrying too much about different things: 0 = Not at all Trouble relaxin = Not at all Being so restless that it is hard to sit still: 0 = Not at all Becoming easily annoyed or irritable: 0 = Not at all Feeling afraid as if something awful might happen: 0 = Not at all Total FREEDOM-7 score (0-4 normal; 5-9 mild; 10-14 moderate; 15-21 severe): 0 Source: Developed by Drs. Demetri Lewis, Diamante White, Gagan Bullard and colleagues, with an educational analy from [employer]. FREEDOM-7 Assessment Billing FREEDOM-7 Assessment Tool: FREEDOM-7 Assessment 96894 Review of Systems Const Denies headache(s) Eyes Denies loss of vision ENT Denies vertigo, Denies dizziness, Denies headache(s) and Denies sore throat Card Denies chest pain, Denies leg edema and Denies lightheadedness Resp Denies cough, Denies hemoptysis and Denies wheezing GI Denies abdominal pain, Denies melena, Denies constipation, Denies diarrhea and Denies vomiting Denies urinary frequency, Denies dysuria and Denies urinary urgency Musc Denies arthralgias, Denies joint swelling, Denies numbness and Denies tingling Neuro Denies Abnormal speech present, Denies behavioral changes, Denies vertigo, Denies dizziness, Denies headache(s), Denies loss of vision, Denies memory loss, Denies numbness and Denies tingling Psych Denies anxiety, Denies behavioral changes, Denies depression, Denies memory loss and Denies panic attacks Waylon/Lymph Denies easy bleeding and Denies easy bruising Aller/Immun Denies wheezing Physical exam (Primary Care) Vital Signs: Last Vital Signs Pulse 60 09/27/23 09:06 Resp 17 09/27/23 09:06 BP 118/62 09/27/23 09:06 BMI result Body Mass Index 22.9 Tobacco/Smoking Status: Tobacco use Status Tobacco use date assessed 09/27/23 09/27/23 09:17 Patient Tobacco Use Status Never used Tobacco 09/27/23 09:05 e-Cigarette/Vaping Use Never Used 09/27/23 09:05 PHQ-9: PHQ-9 Score PHQ-9: Total score 0 09/27/23 09:34 Depression Screening Interpretation: Negative Thrive Assessment: Date of Thrive Assessment Date Thrive assessed 09/27/23 09/27/23 09:17 Currently or been in a relationship where the following occur: no concerns reported Const General: healthy appearing, no acute distress, alert and awake Nutritional Appearance: well nourished Orientation/consciousness: oriented to person, oriented to place and oriented to time HENAR Ears: TM's normal bilaterally General nose exam: Normal nasal mucous membranes and turbinates present Eyes Conjunctivae: conjunctivae normal Sclerae: sclerae normal Pupils: Equal, round and reactive pupils present Neck Neck: Yes no lymphadenopathy and Yes no JVD Thyroid: Thyroid normal Carotids: no bruits Resp Effort & Inspection: normal respiratory effort and not tachypneic Auscultation: no crackles, no rales, no rhonchi and no wheezes Cardio Rate: regular rate Rhythm: regular rhythm Heart sounds: no murmurs and normal S1 and S2 GI Palpation (GI): Soft to palpation, nontender, no hepatomegaly and no splenomegaly Auscultation: normal bowel sounds Skin General skin exam: no rashes or lesions noted and dry skin Neuro General: oriented to person, oriented to place and oriented to time Cranial nerves: Yes Equal, round and reactive pupils present Speech: No Abnormal speech present Gait exam (Neuro): Normal gait present Motor exam (neuro): no tremor noted Extrem Right upper extremity: full ROM Left upper extremity: full ROM Right lower extremity: full ROM; no edema Left lower extremity: full ROM; no edema Psych Mental Status: mental status grossly normal Speech and movement: Normal speech and movement present Affect: normal affect Attitude: cooperative Thought process: Normal thought process present Assessment and Plan Assessment & Plan (1) Encounter for pre-operative examination: Code(s): Z01.818 - Encounter for other preprocedural examination Plan: Patient is low to moderate CV risk for needed procedure. Patient's most recent labs, EKG and vitals are all stable. Patient is medically clear for needed cataract removal. (2) Left cataract: Code(s): H26.9 - Unspecified cataract Qualifiers: Age-related cataract type: unspecified Cataract type: age-related Qualified Code(s): H25.9 - Unspecified age-related cataract Plan: As above (3) History of stroke: Code(s): Z86.73 - Personal history of transient ischemic attack (TIA), and cerebral infarction without residual deficits Plan: History of brain tumor removal, had stroke as result. Has left-sided hemiplegia. Continues on aspirin daily. Coding Level of Care Code Est Pt Level 3 (33940) Diagnoses Encounter for pre-operative examination Z01.818 Senile cataract of left eye, unspecified age-related cataract type H25.9 Age-related cataract type: unspecified Cataract type: age-related History of stroke Z86.73 Additional Codes FREEDOM-7 Assessment Billing - FREEDOM-7 Assessment Tool: FREEDOM-7 Assessment [id number] ([id number])
[2023-09-27 09:06] VITALS: BP 118/62; PULSE 60; RESP 17; BMI 22.9
== END 2023-09-27 10:24 | disposition home or self-care (01) ==
PROVIDERS: PCP Internal Medicine; Visit Provider Physician Assistant
DX: Z01.818 Encounter for other preprocedural examination (principal); H25.9 Unspecified age-related cataract; Z86.73 Personal history of transient ischemic attack (TIA), and cerebral infarction without residual deficits
CPT/HCPCS: 99213

== ENCOUNTER 2023-10-24 16:26 | Outpatient (AMB) | payer MEDICARE, SELFPAY ==
--- NOTE | 2023-10-24 16:39 | AM.OFFVISNUR ---
Intake Intake Visit Reasons: Evenity Allergies No Known Allergies [No Known Allergies*] Allergy (Verified 09/27/23 09:31) Office Meds romosozumab-aqqg 210 mg/2.34 mL(105 mg/1.17 mL x2)subcutaneous syringe Performing Provider: Demetri Sánchez MD Performing Location[place] [facility] [place] [facility] Administered by: Emilia Gutierrez LPN on 10/24/23 16:40 Dose Route Admin Location Dispensed Lot Number Expiration Date [facility] Teaching Fellow 210 mg subcut 2.34 mL [id number] 03/23/25 AMGEN Coding Assessment & Plan Assessment & Plan Orders: Orders AMB Romosozumab Injection Patient Supplied Today M81.0 - Age-related osteoporosis without current pathological fracture
== END 2023-10-24 16:38 | disposition home or self-care (01) ==
PROVIDERS: PCP Internal Medicine; Visit Provider Internal Medicine Endocrinology, Diabetes & Metabolism
DX: M81.0 Age-related osteoporosis without current pathological fracture (principal)

== ENCOUNTER → 2023-10-24 16:26 | Outpatient (BNVA) | payer MEDICARE, SELFPAY | PROVIDERS: PCP Internal Medicine; Visit Provider Internal Medicine Endocrinology, Diabetes & Metabolism | DX: M81.0 Age-related osteoporosis without current pathological fracture (principal) | CPT/HCPCS: 96372; J3111 ==

== ENCOUNTER 2024-02-29 07:36 | Inpatient (IN) | payer OTHER, SELFPAY ==
--- NOTE | ~2024-02-29 | MR_ITS ---
EXAMINATION: MR BRAIN WITHOUT CONTRAST CLINICAL INFORMATION: Dizziness. History of hemangiopericytoma. COMPARISON: CT head from 02/29/2024 and 03/29/2023. TECHNIQUE: MRI of the brain was obtained using routine sequences without contrast. FINDINGS: Changes of right parietal craniotomy for resection of a subjacent mass. Chronic trace extradural fluid subjacent to the craniotomy flap. Right posterior approach ventricular peritoneal shunt catheter in place with tip terminating in the atrium of the right lateral ventricle. Chronic cystic encephalomalacia the right occipital parietal lobes with hemosiderin staining. Similar appearance of midline multilobulated masslike tissue in the expected location of the splenium of the corpus callosum, measuring approximately 1.7 x 1.1 x 1.4 cm. No focal restricted diffusion is demonstrated to suggest acute or subacute cerebral ischemia. No evidence of acute hemorrhagic products on heme-sensitive imaging. Confluent periventricular, deep white matter, and brainstem T2 FLAIR hyperintensity consistent with underlying microangiopathy. Proportional prominence of the ventricles and sulcal spaces without evidence of obstructive hydrocephalus. No abnormal mass effect. No midline shift. Normal appearance of the pituitary gland. Normal positioning of the cerebellar tonsils. Normal arterial and venous vascular flow voids are present. Normal, homogeneous marrow signal. Mild mucosal thickening of the paranasal sinuses. No signal abnormalities within the mastoids. Bilateral lens extractions. MR/MR head/brain wo con IMPRESSION: 1. No acute intracranial abnormalities. 2. Changes of prior right parietal craniotomy for resection of a subjacent mass. Chronic cystic encephalomalacia of the right occipitoparietal lobes. 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 3. Extensive chronic white matter changes and generalized cerebral volume loss.
--- NOTE | ~2024-02-29 | CT_ITS ---
EXAMINATION: CT HEAD WITHOUT CONTRAST CLINICAL INFORMATION: Dizziness and weakness. History of hemangiopericytoma. 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 Rule out bleed stroke shunt failure. COMPARISON: Previous head CT most recent March 2023 TECHNIQUE: Contiguous axial imaging was performed from the skull base to vertex without intravenous administration of contrast. This CT examination was performed using dose optimization techniques as appropriate, variously including the following: *Automated exposure control *Adjustment of mA and/or kV according to patient size (this includes techniques or standardized protocols for targeted exams where dose is matched to indication/reason for exam; i.e. extremities or head) *Use of iterative reconstruction technique DLP: 677 mGy-cm FINDINGS: There is no evidence of an extra-axial collection. There is no evidence of intra or extra-axial hemorrhage. There is a right parietal approach LOSS PREVENTION/SAFETY DISTRICT MANAGER shunt catheter with tip projecting over the body of the right ventricle. This appears unchanged. The ventricles are similar to previous exam. There is extensive encephalomalacia or gliosis of the right frontal and parietal lobes and extra-axial dilatation of the posterior and occipital horns and trigone of the right lateral ventricle. This is unchanged. There is nonspecific periventricular white matter disease. No mass, mass effect or new infarct is seen. Right parietal craniotomy defect. No skull fracture. Visualized paranasal sinuses, mastoid air cells and middle ears are clear. CT/CT head/brain wo IV con IMPRESSION: Stable head CT exam with right parietal approach LOSS PREVENTION/SAFETY DISTRICT MANAGER shunt catheter with tip in the body of the right lateral ventricle. Size of ventricles similar to previous exams. Encephalomalacia and gliosis of the right frontal and parietal lobes and ex vacuo dilatation of the right lateral ventricle similar to previous exams.
[2024-02-29 07:49] VITALS: BP 130/65; PULSE 89; RESP 20; TEMP 36.7; O2SAT 99; BMI 24.5
--- NOTE | 2024-02-29 09:47 | ED_ITS ---
HPI - Dizziness General Chief Complaint: Dizziness Stated Complaint: DIZZY Time Seen by Provider: 02/29/24 09:05 Source: patient Mode of arrival: EMS Limitations: language barrier History of Present Illness ED Provider: Dr. 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 Patient states that she woke up this morning and felt very dizzy. She states that the dizziness is been intermittent in his worse with moving her head. She describes the the dizziness as a room spinning sensation. She has associated nausea with no vomiting. This is a 1st episode of this type of symptom. According to her daughter, the patient was too dizzy therefore of the daughter called an ambulance the patient was brought to the emergency department for evaluation. Patient's review of systems was negative, for headache, fever, chills, sore throat, cough, chest pain, shortness of breath, dysuria, frequency, dark tarry stools, bloody stools, myalgias arthralgias. She states she does have rhinorrhea but she believes this is due to allergies Related Data Home Medications ?Medication ?Instructions ?Recorded ?Confirmed No Known Home Meds 02/29/24 02/29/24 Allergies Allergy/AdvReac Type Severity Reaction Status Date / Time No Known Allergies Allergy Verified 02/29/24 07:50 [No Known Allergies*] ON LICENSE OF [facility] Past Medical History ON LICENSE OF [facility] Narrative: Past medical history: Reviewed below. Past surgical history: Patient had 2 brain tumors (hemangiopericytoma) with 1 to move being resected in 2019 in the other treated with radiation therapy, patient has a CARPET WEAVER shunt. Social history she lives with her daughter. She denies tobacco, alcohol and drug use. Her daughter is here in the emergency department with her. Medical History History of stroke Left hemiplegia Renal calculi Cholelithiasis without cholecystitis Adrenal abnormality Acute cholecystitis Surgical History Fracture of right hip requiring operative repair History of brain surgery Family History Family History Brother History of bone cancer History of pancreatic cancer Father History of skin cancer of unknown type Social History Social History Housing: Apartment Alcohol intake: never Patient Tobacco Use Status: Never used Tobacco Smoked in Last 30 Days: No e-Cigarette/Vaping Use: Never Used Second Hand Smoke Exposure: No Use of substances other than those prescribed or required for medical reasons: No Advance Directives: No Advance Directives Information Provided: Yes Nutrition Risks: No Nutritional Risk service: No Current occupational status: disabled Cognitive needs: No Hearing needs: No Vision needs: Yes Physical Exam 2 Vital Signs: Vital Signs: Last Vital Signs Temp 98.3 F 02/29/24 14:49 Pulse 82 02/29/24 14:49 Resp 17 02/29/24 14:49 BP 139/77 02/29/24 14:49 Pulse Ox 99 02/29/24 14:49 O2 Del Method Room Air 02/29/24 14:49 BMI result Body Mass Index 24.5 Vital signs were normal Exam: General: Awake, alert in no distress if she stays still, with minimal head movement she has severe dizziness and appears to be in distress. Head: Normocephalic, atraumatic. Patient has significant vertigo like symptoms with minimal head movement EENT: PERRL, lateral nystagmus, Lids normal, sclera normal, conjunctiva normal, nose normal , ears normal, throat without erythema or exudates Neck: Supple, no adenopathy Lung: breath sounds symmetric, no wheezing, rales or rhonchi Chest: symmetric movement, nontender Heart: regular rate and rhythm, normal S1, S2 no murmurs or rubs Abdomen: soft, non-tender, nondistended, normal bowel sounds Back: no vertebral tenderness, no CVAT Extremities: no deformities, moves all extremities symmetrically Neuro: General: Awake, alert, oriented, normal speech Cranial nerves: cranial nerves intact Strength: Patient has normal strength in her right extremity, she can move her left upper extremity up against gravity but does have weakness, she can also move her left lower extremity against gravity but has weakness compared to the right. Psych: Pleasant, cooperative Medications Administered Discontinued Medications Generic Name Dose Route Start Last Admin Trade Name Freq PRN Reason Stop Dose Admin Sodium Chloride 1,000 mls @ 999 mls/hr 02/29/24 10:32 02/29/24 13:31 Ns IV 02/29/24 11:32 Infused .Q1H1M STA Infusion Meclizine HCl 25 mg 02/29/24 10:32 02/29/24 10:53 Meclizine Hcl 25 Mg Tablet PO 02/29/24 10:33 25 mg ONCE STA Administration Meclizine HCl 25 mg 02/29/24 15:13 02/29/24 15:17 Meclizine Hcl 25 Mg Tablet PO 02/29/24 15:14 25 mg ONCE STA Administration Ondansetron HCl 4 mg 02/29/24 10:32 02/29/24 10:52 Ondansetron Hcl 4 Mg/2 Ml Vial IVPUSH 02/29/24 10:33 4 mg ONCE ONE Administration Medical Decision Making Medical Decision Making MDM Narrative: 73-year-old female with a history of hypertension, stroke with residual left- sided weakness and hemangiopericytoma with resection 2020 with CARPET WEAVER shunt who presents emergency department for evaluation of intermittent, room spinning dizziness precipitated by movement, relieved by rest, unable to walk secondary to dizziness. This is the patient's 1st episode of dizziness she did have associated nausea. Vital signs were normal. Patient's physical examination did reveal easily inducible vertigo with minimal movement of her head, she also has left-sided weakness which she is consistent with her previous stroke. Differential diagnosis: ?Includes but is not limited to positional vertigo, cerebellar stroke, CARPET WEAVER shunt failure, anemia, electrolyte abnormalities, anemia, , urinary tract infection Following evaluation was ordered: CBC, BNP, liver panel, urinalysis, CT scan of the brain without IV contrast Patient was initially treated with the following: Meclizine 25 mg orally, Zofran 4 mg orally, normal saline IV x1 L Course: 10:45 My interpretation patient's laboratory evaluation as follows: CBC was normal. BNP was normal. LFTs are pending. Urinalysis was positive for blood and leukocyte esterase. Microscopic revealed 3-5 RBCs, greater than 50 WBCs, no bacteria and 10-20 squamous cells-this is a non clean catch specimen 15:12 CT scan the brain did not reveal any acute abnormalities to explain the patient's symptoms, the patient's CARPET WEAVER shunt appears to be working and there was no evidence for ventriculomegaly. Patient states she does feel better after the above treatment. The daughter states the patient can not use a walker secondary to her left-sided weakness but she can walk holding onto a wall or if someone supports your left side. We attempted to stand the patient and walk her however she stated that she felt t very weak as if her body were moving. I ordered a 2nd dose of meclizine. Given her inability to walk, the patient will need to be admitted for evaluation for possible cerebellar stroke is the cause of her dizziness. I did discuss the patient's presentation over tiger text with the covering hospitalist, Dr. Shruthi Carbajal. 15:33 Nurse obtained a history that the patient needs her medications and she needs multiple swallows to get her medications down. Therefore, a speech bedside swallow evaluation was ordered to help determine if this patient can eat and drink normally. Admission/Observation Consideration of admission/observation: Escalation of care including admission/observation considered Consult Healthcare Provider Management of the patient was discussed with: Hospitalist Lab Data MDM Lab Attestation statement: I reviewed the patient's lab results. 02/29/24 09:46 02/29/24 10:18 Labs: Lab Results 02/29/24 02/29/24 02/29/24 Range/Units 09:46 10:18 12:35 WBC 8.0 (4.8-10.8) X10*3/uL RBC 4.80 (4.20-5.50) X10*6/uL Hgb 13.5 (12.0-16.0) g/dl Hct 42.8 (37.0-47.0) % MCV 89.2 (80.0-98.0) fL MCH 28.1 (27.0-33.0) pg MCHC 31.5 (31.0-35.0) g/dl RDW 11.5 (11.0-16.0) % Plt Count 165 (160-400) X10*3/uL MPV 11.0 (9.4-12.3) fL Immature Gran % (Auto) 0.4 (0.0-0.4) % Neut % (Auto) 76.3 H (45-73) % Lymph % (Auto) 16.2 L (20-40) % [place] % (Auto) 6.1 (2-11) % Eos % (Auto) 0.4 (0-4) % Baso % (Auto) 0.6 (0-2) % Lymph # (Auto) 1.3 (1.2-4.9) X10*3/uL [place] # (Auto) 0.5 (0.1-1.2) X10*3/uL Eos # (Auto) 0.0 (0.0-0.4) X10*3/uL Baso # (Auto) 0.1 (0.0-0.2) X10*3/uL Abs Immat Gran (auto) 0.03 (0.00-0.03) X10*3/uL Absolute Neuts (auto) 6.1 (2.0-8.3) x10*3/uL Absolute Nucleated RBC 0.000 (0.0-0.012) X10*3/uL Nucleated RBC % (auto) 0.0 (0.0-0.2) /100WBC PT 12.4 (11.1-13.3) SEC INR 1.0 (0.9-1.1) Sodium 143 (135-145) mmol/L Potassium 4.3 (3.3-5.1) mmol/L Chloride 111 H (96-108) mmol/L Carbon Dioxide 24 (22-29) mmol/L Anion Gap 12 (12-20) BUN 16 (9-16) mg/dL Creatinine 0.80 (0.5-1.4) mg/dL Estim Creat Clear Calc 50.2 Estimated GFR > 60 Random Glucose 100 (60-115) mg/dL Calcium 9.8 (8.4-10.2) mg/dL Total Bilirubin 1.0 (0.0-1.0) mg/dL Direct Bilirubin 0.3 (0.0-0.5) mg/dL AST 19 (5-31) U/L ALT 10 (0-31) U/L Alkaline Phosphatase 92 (39-117) U/L Total Protein 6.9 (6.5-8.0) g/dL Albumin 3.9 (3.5-5.0) g/dL Urine Color Yellow Urine Appearance Cloudy Urine pH 5.5 (5.0-9.0) Ur Specific [place] 1.015 (1.005-1.025) Urine Protein Negative (Neg-Trace) mg/dL Urine Glucose (UA) Negative (Negative) mg/dL Urine Ketones Negative (Negative) mg/dL Urine Blood Trace H (Negative) Urine Nitrite Negative (Negative) Ur Leukocyte Esterase Large (3+) H (Negative) Urine RBC 3-5 H (0-2) /HPF Urine WBC >50 H (0-5) /HPF Ur Squamous Epith Cells 11-20 (0-2) /HPF Urine Bacteria None Seen (None Seen) Hyaline Casts 0-2 (0-2) /LPF Independent Interpretation I performed an independent interpretation of an: EKG Interpretation: My independent interpretation patient's 12 EKG done at 09:20 hours is as follows: Normal sinus rhythm rate of 70, normal OH interval, QRS duration QTC interval, no ST segment elevation, no ST segment depression, no PACs, no PVCs, no significant T-wave abnormalities Radiology Impression Discussion of test interpretation with radiology: I have reviewed the radiologist's reading. Radiologist Impression: CT head/brain wo IV con IMPRESSION: Stable head CT exam with right parietal approach CARPET WEAVER shunt catheter with tip in the body of the right lateral ventricle. Size of ventricles similar to previous exams. Encephalomalacia and gliosis of the right frontal and parietal lobes and ex vacuo dilatation of the right lateral ventricle similar to previous exams. Dictated By: Veronique Courtney MD Independent Historian Clinical information obtained from an independent historian. History obtained from or confirmed by: Other (Daughter) Prescription Management I considered prescription management with: Other (Stroke) Critical Care Time Critical Care Time Critical Care Time: Yes Total Critical Care Time: 45 Attestation: Critical Care: The patient was critically ill with a high probability of imminent or life threatening deterioration. I spent greater than 30 minutes of discontinuous time evaluating the patient,delivering critical care at the bedside, discussing and evaluating pertinent data with consultants. Critical care time does not include time spent performing separately billable procedures or teaching. Total time spent performing critical care was 45 minutes. Discharge Plan Discharge Clinical Impression: Dizziness, Inability to walk Patient Disposition: Admitted As Inpatient
[2024-02-29 09:49] LABS: MANUAL DIFF FLAG NO
[2024-02-29 09:52] LABS: Appearance Urine Cloudy; Color Urine Yellow; Glucose Urine UA Negative (Negative); Leukocyte Esterase Urine Large (3+) (Negative); Nitrite Urine Negative (Negative); PH 5.5 (5.0-9.0); Specific Gravity - Urine 1.015 (1.005-1.025); UMIC TRIGGER UACC YES; Urine Blood Trace (Negative); Urine Ketones Negative (Negative); Urine Protein Negative (Neg-Trace)
[2024-02-29 09:56] LABS: Basophils Absolute Auto 0.1 X10*3/uL (0.0-0.2); Basophils Percent Auto 0.6 % (0-2); Eosinophils Percent Auto 0.4 % (0-4); Hematocrit 42.8 % (37.0-47.0); Hemoglobin 13.5 g/dl (12.0-16.0); Imm Gran Abs Auto 0.03 X10*3/uL (0.00-0.03); Imm Gran Pct Auto 0.4 % (0.0-0.4); Lymphocytes Absolute Auto 1.3 X10*3/uL (1.2-4.9); Lymphocytes Percent Auto 16.2 % (20-40); Mean Corpuscular HGB Conc 31.5 g/dl (31.0-35.0); Mean Corpuscular Hemoglobin 28.1 pg (27.0-33.0); Mean Corpuscular Volume 89.2 fL (80.0-98.0); Monocytes Absolute Auto 0.5 X10*3/uL (0.1-1.2); Monocytes Percent Auto 6.1 % (2-11); Neutrophils Absolute Auto 6.1 x10*3/uL (2.0-8.3); Neutrophils Percent Auto 76.3 % (45-73); Platelet Count 165 X10*3/uL (160-400); Red Cell Distribution Width 11.5 % (11.0-16.0)
[2024-02-29 09:58] LABS: Bacteria Urine None Seen (None Seen); Hyaline Casts Urine 0-2 /LPF (0-2); UACC Culture Trigger YES; WBC Urine >50 /HPF (0-5)
[2024-02-29 10:42] LABS: Anion Gap 12 (12-20); Blood Urea Nitrogen 16 mg/dL (9-16); Calcium 9.8 mg/dL (8.4-10.2); Carbon Dioxide 24 mmol/L (22-29); Chloride 111 mmol/L (96-108); Creatinine Clr Calc Pharmacy 50.2; Estimated Glomerular Filt Rate > 60; Glucose Random 100 mg/dL (60-115); Potassium 4.3 mmol/L (3.3-5.1); Sodium 143 mmol/L (135-145)
[2024-02-29] MEDS: ondansetron HCL 4 MG/2 ML VIAL IVPUSH (10:52)
[2024-02-29] MEDS: 0.9 % Sodium Chloride 1,000 ML 999 ML IV (10:52)
[2024-02-29] MEDS: Meclizine HCl 25 MG TABLET PO ×2 (10:53→15:17)
[2024-02-29 11:16] LABS: Alanine Aminotransferase 10 U/L (0-31); Albumin Level 3.9 g/dL (3.5-5.0); Alkaline Phosphatase 92 U/L (39-117); Aspartate Amino Transferase 19 U/L (5-31); Bilirubin Direct 0.3 mg/dL (0.0-0.5); Total Protein 6.9 g/dL (6.5-8.0)
[2024-02-29 11:48] VITALS: BP 121/59; PULSE 78; RESP 10; TEMP 36.9; O2SAT 100
[2024-02-29 12:51] LABS: Prothrombin Time 12.4 SEC (11.1-13.3)
--- NOTE | 2024-02-29 13:25 | PC.NURSE ---
Assumed care of this patient at 1100, patient continues to complain of dizziness/vertigo with slight movement, very difficult to roll in bed, resting quietly after complete bed change at this time.
[2024-02-29 14:49] VITALS: BP 139/77; PULSE 82; RESP 17; TEMP 36.8; O2SAT 99
--- NOTE | 2024-02-29 15:34 | PC.NURSE ---
Bedside swallow eval completed, patient needs meds crushed, needs multiple swallows to swallow liquid, unable to feed themselves d/t lack of L arm function, provider made aware, speech eval ordered.
--- NOTE | 2024-02-29 16:41 | PHA.MEDREC ---
Pharmacy Consult ? Medication Reconciliation Pharmacy has completed the medication reconciliation. According to daughter Kaitlin at bedside her mom is not taking anything at the moment.
--- NOTE | 2024-02-29 16:46 | P.HPHOSP_ITS ---
History of Present Illness Date of Service: 02/29/24 Chief Complaint: dizzy 73F PMH Hypertension, CVA with residual left hemiparesis and hemangiopericytoma with resection in 2019 and [employer] UNDER[employer]ITER shunt presented with 1 day of dizziness. Patient states she woke up and felt very weak and unable to get out of bed and walk. Reports significant dizziness with any head movement. Description of dizziness is vague denies any diplopia or room spinning, has also had nausea without vomiting. Reports that her left-sided weakness feels worse than usual. In ED CT head unremarkable. Review of Systems 2 Review of Systems: Yes all other systems are reviewed and are negative [facility] Medical History History of stroke Left hemiplegia Renal calculi Cholelithiasis without cholecystitis Adrenal abnormality Acute cholecystitis Family History Brother History of bone cancer History of pancreatic cancer Father History of skin cancer of unknown type Surgical History Fracture of right hip requiring operative repair History of brain surgery Social History Housing: Apartment Alcohol intake: never Patient Tobacco Use Status: Never used Tobacco Smoked in Last 30 Days: No e-Cigarette/Vaping Use: Never Used Second Hand Smoke Exposure: No Use of substances other than those prescribed or required for medical reasons: No Advance Directives: No Advance Directives Information Provided: Yes service: No Current occupational status: disabled Cognitive needs: No Hearing needs: No Vision needs: Yes Meds Allergies Allergy/AdvReac Type Severity Reaction Status Date / Time No Known Allergies Allergy Verified 02/29/24 07:50 [No Known Allergies*] Home Medications ?Medication ?Instructions ?Recorded ?Confirmed ?Last Taken ?Type No Known Home Meds 02/29/24 02/29/24 Unknown History Physical Exam 2 Vital Signs and Narrative: Vital Signs: Last Vital Signs Temp 98.3 F 02/29/24 14:49 Pulse 82 02/29/24 14:49 Resp 17 02/29/24 14:49 BP 139/77 02/29/24 14:49 Pulse Ox 99 02/29/24 14:49 O2 Del Method Room Air 02/29/24 14:49 BMI result Body Mass Index 24.5 General: AO X 3, no acute distress Resp: CTA bilateral, no accessory muscles used CVS: S1,S2,RRR GI: soft, non tender, non distended Neuro: motor grossly intact, alert, left hemiparesis, no nystagmus noted Psych: appropriate affect, appropriate insight Results Labs 02/29/24 09:46 02/29/24 10:18 Labs: Laboratory Results - last 24 hr 02/29/24 02/29/24 02/29/24 09:46 10:18 12:35 MCV 89.2 MCH 28.1 MCHC 31.5 RDW 11.5 Plt Count 165 MPV 11.0 Immature Gran % (Auto) 0.4 Neut % (Auto) 76.3 H Lymph % (Auto) 16.2 L [place] % (Auto) 6.1 Eos % (Auto) 0.4 Baso % (Auto) 0.6 Lymph # (Auto) 1.3 [place] # (Auto) 0.5 Eos # (Auto) 0.0 Baso # (Auto) 0.1 Abs Immat Gran (auto) 0.03 Absolute Neuts (auto) 6.1 Absolute Nucleated RBC 0.000 Nucleated RBC % (auto) 0.0 PT 12.4 INR 1.0 Anion Gap 12 Estim Creat Clear Calc 50.2 Estimated GFR > 60 Random Glucose 100 Calcium 9.8 Total Bilirubin 1.0 Direct Bilirubin 0.3 AST 19 ALT 10 Alkaline Phosphatase 92 Total Protein 6.9 Albumin 3.9 Urine Color Yellow Urine Appearance Cloudy Urine pH 5.5 Ur Specific [place] 1.015 Urine Protein Negative Urine Glucose (UA) Negative Urine Ketones Negative Urine Blood Trace H Urine Nitrite Negative Ur Leukocyte Esterase Large (3+) H Urine RBC 3-5 H Urine WBC >50 H Ur Squamous Epith Cells 11-20 Urine Bacteria None Seen Hyaline Casts 0-2 Imaging Radiologist's Impressions: Impressions Head CT 02/29/24 12:25 IMPRESSION: Stable head CT exam with right parietal approach VA UNDERWRITER shunt catheter with tip in the body of the right lateral ventricle. Size of ventricles similar to previous exams. Encephalomalacia and gliosis of the right frontal and parietal lobes and ex vacuo dilatation of the right lateral ventricle similar to previous exams. Assessment and Plan (1) Left hemiplegia: Status: Acute Plan 73F PMH Hypertension, CVA with residual left hemiparesis and hemangiopericytoma with resection in 2019 and VA UNDERWRITER shunt presented with 1 day of dizziness Vertigo Rule out CVA Check MRI, neuro eval NPO for now, awaiting speech eval Aspirin statin PT/OT History of CVA with left hemiparesis Aspirin, statin Hemangiopericytoma Outpatient follow-up Hypertension Not on meds, BP normal DVT prophylaxis with Lovenox Full code Patient with significant dizziness and possible CVA, expected require at least 2 midnights inpatient for full work up Quality Stroke Does the patient have a stroke diagnosis?: No VTE Prior VTE?: No VTE Risk Level:: Medical - moderate - high VTE Device Contraindication: Treatment Not Indicated VTE Drug Contraindication: N/A - Med Ordered
--- NOTE | 2024-02-29 17:18 | PC.NURSE ---
MRI ordered by admitting DRAnnette Patient has CONSTRUCTION EXECUTIVE shunt, does not have ID card, does not know if it is reprogramable, MRI aware, delay in getting MRI until information can be obtained.
--- NOTE | 2024-02-29 17:49 | MHC.SL.SWA ---
Speech Pathologist Impression: Risk of aspiration Risk of Aspiration Due to: Neurological Condition Dysphasia Diet Status: Upgrade from NPO, start on regular textures Liquid Consistency and Strategies for Safe Swallow: Liquid Intake Recommendation: Thin Liquid Intake Strategies: Small Sips Solid Food Consistency: Dietary Recommendations: Regular Additional Modifications to Solid Foods: Unremarkable exam. Recommend UPGRADE from NPO, start on REGULAR texture diet and THIN liquids. Per RN, patient was needing pills crushed earlier today. Pills to be given whole or crushed with puree per patient's tolerance. Ensure standard aspiration precautions d/t hx CVA. Patient w/ L-hemiparesis and may need assistance with tray set up. Oral Medication Intake: Whole or Crushed per patient's tolerance/preference Please contact the pharmacy regarding appropriate crushable or liquid drug formulations that are available whenever modified delivery is recommended. Compensatory Strategies and Precautions to be Taken for Safe Swallow: Sitting Upright (90 deg) Small Bites and Sips Alternate Liquids/Solids Rate of Ingestion Change Supervision While Eating and Drinking for Safe Swallow: Total Supervision (1:1) Swallowing Recommended Treatments: Compens. Strategy Educat. Recommendation for Speech: Inpatient Speech Therapy Comment: 1-2 f/u to monitor tolerance of diet and assess speech/language Frequency/Duration: Date Range for Service Req: Timeline to reassess: Conservator Artifacts Clinican/Clinical Fellow: No Supervisory Statement: I have reviewed and agree with the student/clinical fellow's documentation: N/A Speech Language Pathologist: Jami Rene M.A., CCC-INCOME AUDITOR
[2024-02-29 18:55] VITALS: BP 130/60; PULSE 70; RESP 12
[2024-02-29 19:33] VITALS: BP 135/60; PULSE 67; RESP 13; TEMP 36.8; O2SAT 99
--- NOTE | 2024-02-29 19:33 | MHC.EDTECH ---
Dinner tray was delivered late. Tray was given to patient.
[2024-02-29 23:38] VITALS: BP 122/57; PULSE 63; RESP 13; TEMP 36.2; O2SAT 99
[2024-03-01] VITALS (8 sets, daily range): BP systolic 108–168; BP diastolic 56–70; PULSE 66–79; RESP 16–20; TEMP 36.1–36.5; O2SAT 96–99; BMI 10.5
[2024-03-01 06:34] LABS: Hematocrit 44.3 % (37.0-47.0); Hemoglobin 13.9 g/dl (12.0-16.0); Mean Corpuscular HGB Conc 31.4 g/dl (31.0-35.0); Mean Corpuscular Hemoglobin 28.3 pg (27.0-33.0); Mean Platelet Volume 9.9 fL (9.4-12.3); Platelet Count 171 X10*3/uL (160-400); Red Blood Count 4.92 X10*6/uL (4.20-5.50); Red Cell Distribution Width 11.8 % (11.0-16.0); White Blood Count 6.1 X10*3/uL (4.8-10.8)
[2024-03-01 06:51] LABS: Anion Gap 12 (12-20); Blood Urea Nitrogen 13 mg/dL (9-16); Calcium 9.5 mg/dL (8.4-10.2); Carbon Dioxide 23 mmol/L (22-29); Chloride 111 mmol/L (96-108); Cholesterol 210 mg/dL (<200); Creatinine Clr Calc Pharmacy 23.1; Estimated Glomerular Filt Rate > 60; Glucose Fasting 84 mg/dL (60-99); HDL Cholesterol 59 mg/dL (>40); LDL Cholesterol Calculated 136 mg/dL (<100); Potassium 4.1 mmol/L (3.3-5.1); Sodium 142 mmol/L (135-145); Triglycerides 77 mg/dL (<150)
[2024-03-01] MEDS: Aspirin Enteric Coated 81 MG TABLET.DR PO (07:58)
[2024-03-01] MEDS: Atorvastatin Calcium 80 MG TABLET PO (07:58)
--- NOTE | 2024-03-01 11:04 | P.PNIM_ITS ---
Subjective Subjective Date of Service: 03/01/24 Interval History: unchanged Physical Exam 2 Vital Signs: Vital Signs: Last Vital Signs Temp 97.3 F 03/01/24 07:36 Pulse 74 03/01/24 08:50 Resp 20 03/01/24 07:36 BP 118/60 03/01/24 08:50 Pulse Ox 98 03/01/24 08:50 O2 Del Method Room Air 03/01/24 07:36 BMI result Body Mass Index 10.5 Exam: General: Awake, alert in no distress if she stays still, with minimal head movement she has severe dizziness and appears to be in distress. Head: Normocephalic, atraumatic. Patient has significant vertigo like symptoms with minimal head movement EENT: PERRL, lateral nystagmus, Lids normal, sclera normal, conjunctiva normal, nose normal , ears normal, throat without erythema or exudates Neck: Supple, no adenopathy Lung: breath sounds symmetric, no wheezing, rales or rhonchi Chest: symmetric movement, nontender Heart: regular rate and rhythm, normal S1, S2 no murmurs or rubs Abdomen: soft, non-tender, nondistended, normal bowel sounds Back: no vertebral tenderness, no CVAT Extremities: no deformities, moves all extremities symmetrically Neuro: General: Awake, alert, oriented, normal speech Cranial nerves: cranial nerves intact Strength: Patient has normal strength in her right extremity, she can move her left upper extremity up against gravity but does have weakness, she can also move her left lower extremity against gravity but has weakness compared to the right. Psych: Pleasant, cooperative Objective Data Active Medications Aspirin (Aspirin Enteric Coated 81 Mg Tablet.) 81 mg PO DAILY [facility] Last Admin: 03/01/24 07:58 Dose: 81 mg Documented By: ZOHRAMORP Atorvastatin Calcium (Atorvastatin Calcium 80 Mg Tablet) 80 mg PO DAILY [facility] Last Admin: 03/01/24 07:58 Dose: 80 mg Documented By: NEHA Labs 03/01/24 06:23 03/01/24 06:23 Labs: Laboratory Results - last 24 hr 02/29/24 02/29/24 03/01/24 10:18 12:35 06:23 MCV 90.0 MCH 28.3 MCHC 31.4 RDW 11.8 Plt Count 171 MPV 9.9 Absolute Nucleated RBC 0.000 Nucleated RBC % (auto) 0.0 PT 12.4 INR 1.0 Anion Gap 12 Estim Creat Clear Calc 23.1 Estimated GFR > 60 Fasting Glucose 84 Calcium 9.5 Total Bilirubin 1.0 Direct Bilirubin 0.3 AST 19 ALT 10 Alkaline Phosphatase 92 Total Protein 6.9 Albumin 3.9 Triglycerides 77 Cholesterol 210 H LDL Cholesterol, Calc 136 H HDL Cholesterol 59 Assessment and Plan (1) Inability to walk: Status: Acute Plan 73F PMH Hypertension, CVA with residual left hemiparesis and hemangiopericytoma with resection in 2019 and HOSPITALITY AMBASSADOR shunt presented with dizziness Vertigo Rule out CVA Check MRI (needs paperwork to coordinate with vp & general counsel shunt), neuro eval Aspirin statin PT aprpeciated - recommending str History of CVA with left hemiparesis Aspirin, statin Hemangiopericytoma Outpatient follow-up Hypertension Not on meds, BP normal DVT prophylaxis with Lovenox Full code reason for continued hospitalization:neuro eval, mri pending Quality Stroke Does the patient have a stroke diagnosis?: No VTE Prior VTE?: No VTE Risk Level:: Medical - moderate - high VTE Device Contraindication: Treatment Not Indicated VTE Drug Contraindication: N/A - Med Ordered
--- NOTE | 2024-03-01 11:28 | MHC.CM.PN ---
CM MET WITH PTS DAUGHTER, YOLIS, WHO REPORTS THE PT MOVED IN WITH HER ABOUT 3 MONTHS AGO SHE SAYS SHE PROVIDES CARE FOR THE PT IN THE MORNING, COMES HOME ON HER LUNCH BREAK TO MAKE PTS MEAL, AND THEN PROVIDES HER PM CARE PT HAS A TOTAL OF 38 GARMENT STEAMER HOURS PER WEEK AND A AMBIKA RN GRISEL THAT CHECKS IN Q 6 MONTHS PT HAS WALKER THAT SHE HAS A HARD TIME USING DUE TO HER INABILITY TO GRASP THE HANDLE YOLIS REPORTS SHE IS THE PTS HCP AND SHE HAS A COPY OF IT AT HOME. COPY REQUESTED PCP: JODI COVINGTON DELIVERED DCP: HOME RESUME GARMENT STEAMER AND RN GRISEL SERVICES DAUGHTER TO TRANSPORT
--- NOTE | 2024-03-01 18:08 | PM.NEUROCN ---
History of Present Illness Data of Consult Service Date: 03/01/24 Primary Care Provider: Elsa Adams MD [facility] Reason for consult: Dizziness This is a 73 yr woman with h/o Hypertension, CVA with residual left hemiparesis, s/p resection of hemangiopericytoma in 2019 and DEFENCE FORCE MEMBER OTHER RANKS shunt presented with 1 day of dizziness. Patient states she woke up and felt very weak and unable to get out of bed and walk. Reports significant dizziness with any head movement. Description of dizziness is vague denies any diplopia or room spinning, has also had nausea without vomiting. Reports that her left-sided weakness feels worse than usual. In ED CT head Shows old encephalomalacia in the right hemisphere and a DEFENCE FORCE MEMBER OTHER RANKS shunt on the right side. It is unchanged from previous CAT scan. She's feeling better. She only gets some vertigo when she lowers her head at this point. Review of Systems Review of Systems: Yes all other systems are reviewed and are negative PMFSH Past Medical History Medical History History of stroke Left hemiplegia Renal calculi Cholelithiasis without cholecystitis Adrenal abnormality Acute cholecystitis Family History Family History Brother History of bone cancer History of pancreatic cancer Father History of skin cancer of unknown type Surgical History Surgical History Fracture of right hip requiring operative repair History of brain surgery Social History Social History Housing: Apartment Alcohol intake: never Patient Tobacco Use Status: Never used Tobacco e-Cigarette/Vaping Use: Never Used Second Hand Smoke Exposure: No service: No Current occupational status: disabled Cognitive needs: No Hearing needs: No Vision needs: Yes Meds Allergies Allergy/AdvReac Type Severity Reaction Status Date / Time No Known Allergies Allergy Verified 02/29/24 07:50 [No Known Allergies*] Active Medications: Current Medications Aspirin (Aspirin Enteric Coated 81 Mg Tablet.) 81 mg PO DAILY [facility] Last Admin: 03/01/24 07:58 Dose: 81 mg Atorvastatin Calcium (Atorvastatin Calcium 80 Mg Tablet) 80 mg PO DAILY [facility] Last Admin: 03/01/24 07:58 Dose: 80 mg Home Medications ?Medication ?Instructions ?Recorded ?Confirmed ?Last Taken ?Type No Known Home Meds 02/29/24 02/29/24 Unknown History Physical Exam Vital Signs: Vital Signs: Last Vital Signs Temp 97 F 03/01/24 15:21 Pulse 78 03/01/24 15:21 Resp 16 03/01/24 15:21 BP 112/56 L 03/01/24 15:21 Pulse Ox 99 03/01/24 15:21 O2 Del Method Room Air 03/01/24 15:21 BMI result Body Mass Index 10.5 Neuro: Other: She is alert and oriented with normal cognitive functions. 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 She has mild left hemiparesis graded at 4/5 with hyperreflexia and extensor plantar response, which is her baseline. Plantar Reflex Responses: downgoing: bilateral Results Labs 03/01/24 06:23 03/01/24 06:23 Labs: Short CBC 03/01/24 Range/Units 06:23 WBC 6.1 (4.8-10.8) X10*3/uL Hgb 13.9 (12.0-16.0) g/dl Hct 44.3 (37.0-47.0) % Plt Count 171 (160-400) X10*3/uL BMP 03/01/24 06:23 Sodium 142 Potassium 4.1 Chloride 111 H Carbon Dioxide 23 BUN 13 Creatinine 0.85 Calcium 9.5 Microbiology Microbiology Results: Microbiology 02/29/24 Unknown Urine clean catch - Urine saucedo top Urine Culture - Final Assessment and Plan (1) Dizziness: Status: Acute Her dizziness appears to be related to inner ear dysfunction although there are some features to suggest that there may be an orthostatic component to it as well. Her CT scan shows no acute findings. Cannot rule out a small minor vascular event without an MRI of the brain. Recommendations: MRI of the brain. Meclizine 25 mg twice a day. Check for orthostatic hypotension. (2) Inability to walk: Status: Acute Plan 73F PMH Hypertension, CVA with residual left hemiparesis and hemangiopericytoma with resection in 2019 and DEFENCE FORCE MEMBER OTHER RANKS shunt presented with dizziness Vertigo Rule out CVA Check MRI (needs paperwork to coordinate with vp of marketing shunt), neuro eval Aspirin statin PT aprpeciated - recommending str History of CVA with left hemiparesis Aspirin, statin Hemangiopericytoma Outpatient follow-up Hypertension Not on meds, BP normal DVT prophylaxis with Lovenox Full code reason for continued hospitalization:neuro eval, mri pending Procedures Date of Service Date of Service: 03/01/24
[2024-03-02 03:06] VITALS: BP 133/63; PULSE 68; RESP 16; TEMP 36.2; O2SAT 99
[2024-03-02] MEDS: Acetaminophen 325 MG TABLET 650 MG PO (07:44)
[2024-03-02] MEDS: Aspirin Enteric Coated 81 MG TABLET.DR PO (07:54)
[2024-03-02] MEDS: Atorvastatin Calcium 80 MG TABLET PO (07:54)
[2024-03-02 08:00] VITALS: BP 135/60; PULSE 78; RESP 19; TEMP 36.6; O2SAT 98
--- NOTE | 2024-03-02 09:18 | P.PNIM_ITS ---
Subjective Subjective Date of Service: 03/02/24 Interval History: unchanged Physical Exam 2 Vital Signs: Vital Signs: Last Vital Signs Temp 97.8 F 03/02/24 08:00 Pulse 78 03/02/24 08:00 Resp 19 03/02/24 08:00 BP 135/60 03/02/24 08:00 Pulse Ox 98 03/02/24 08:00 O2 Del Method Room Air 03/02/24 08:00 BMI result Body Mass Index 10.5 Neuro: Other: She is alert and oriented with normal cognitive functions. 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 She has mild left hemiparesis graded at 4/5 with hyperreflexia and extensor plantar response, which is her baseline. Plantar Reflex Responses: downgoing: bilateral Objective Data Active Medications Acetaminophen (Acetaminophen 325 Mg Tablet) 650 mg PO Q4H PRN PRN Reason: Headache Last Admin: 03/02/24 07:44 Dose: 650 mg Documented By: ENRIQUE Aspirin (Aspirin Enteric Coated 81 Mg Tablet.) 81 mg PO DAILY [facility] Last Admin: 03/02/24 07:54 Dose: 81 mg Documented By: ENRIQUE Atorvastatin Calcium (Atorvastatin Calcium 80 Mg Tablet) 80 mg PO DAILY [facility] Last Admin: 03/02/24 07:54 Dose: 80 mg Documented By: ENRIQUE Labs 03/01/24 06:23 03/01/24 06:23 Microbiology Microbiology Results: Microbiology 02/29/24 Unknown Urine Culture - Final Urine clean catch - Urine saucedo top Assessment and Plan (1) Inability to walk: Status: Acute Plan 73F PMH Hypertension, CVA with residual left hemiparesis and hemangiopericytoma with resection in 2019 and LEGAL ASSOCIATE shunt presented with dizziness Vertigo Rule out CVA Check MRI (needs paperwork to coordinate with vp data shunt), neuro appreciated Aspirin statin PT aprpeciated - recommending str History of CVA with left hemiparesis Aspirin, statin Hemangiopericytoma Outpatient follow-up Hypertension Not on meds, BP normal DVT prophylaxis with Lovenox Full code reason for continued hospitalization: mri pending Quality Stroke Does the patient have a stroke diagnosis?: No VTE Prior VTE?: No VTE Risk Level:: Medical - moderate - high VTE Device Contraindication: Treatment Not Indicated VTE Drug Contraindication: N/A - Med Ordered
[2024-03-02 11:54] VITALS: BP 125/59; PULSE 74; TEMP 36.7; O2SAT 100
[2024-03-02 16:00] VITALS: BP 138/65; PULSE 65; RESP 18; TEMP 35.8; O2SAT 99
[2024-03-02 20:00] VITALS: BP 113/57; PULSE 80; RESP 18; TEMP 36.1; O2SAT 99
[2024-03-03] VITALS (8 sets, daily range): BP systolic 114–137; BP diastolic 56–71; PULSE 68–98; RESP 16–20; TEMP 35.8–37; O2SAT 97–100; BMI 24.5
[2024-03-03] MEDS: Acetaminophen 325 MG TABLET 650 MG PO ×2 (02:31→21:10)
[2024-03-03] MEDS: Atorvastatin Calcium 80 MG TABLET PO (08:15)
[2024-03-03] MEDS: Aspirin Enteric Coated 81 MG TABLET.DR PO (08:15)
--- NOTE | 2024-03-03 09:51 | P.PNIM_ITS ---
Subjective Subjective Date of Service: 03/03/24 Interval History: unchanged Physical Exam 2 Vital Signs: Vital Signs: Last Vital Signs Temp 97.0 F 03/03/24 08:00 Pulse 68 03/03/24 08:00 Resp 20 03/03/24 08:00 BP 130/63 03/03/24 08:00 Pulse Ox 99 03/03/24 08:00 O2 Del Method Room Air 03/03/24 08:00 BMI result Body Mass Index 10.5 Neuro: Other: She is alert and oriented with normal cognitive functions. 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 She has mild left hemiparesis graded at 4/5 with hyperreflexia and extensor plantar response, which is her baseline. Plantar Reflex Responses: downgoing: bilateral Objective Data Active Medications Acetaminophen (Acetaminophen 325 Mg Tablet) 650 mg PO Q4H PRN PRN Reason: Headache Last Admin: 03/03/24 02:31 Dose: 650 mg Documented By: BJ Aspirin (Aspirin Enteric Coated 81 Mg Tablet.) 81 mg PO DAILY [facility] Last Admin: 03/03/24 08:15 Dose: 81 mg Documented By: JOE Atorvastatin Calcium (Atorvastatin Calcium 80 Mg Tablet) 80 mg PO DAILY [facility] Last Admin: 03/03/24 08:15 Dose: 80 mg Documented By: JOE Labs 03/01/24 06:23 03/01/24 06:23 Assessment and Plan (1) Inability to walk: Status: Acute Plan 73F PMH Hypertension, CVA with residual left hemiparesis and hemangiopericytoma with resection in 2019 and CHRONOGRAPH OPERATOR shunt presented with dizziness Vertigo Rule out CVA Check MRI (needs paperwork to coordinate with vp strategy shunt), neuro appreciated Aspirin statin PT aprpeciated - recommending str History of CVA with left hemiparesis Aspirin, statin Hemangiopericytoma Outpatient follow-up Hypertension Not on meds, BP normal DVT prophylaxis with Lovenox Full code reason for continued hospitalization: mri pending Quality Stroke Does the patient have a stroke diagnosis?: No VTE Prior VTE?: No VTE Risk Level:: Medical - moderate - high VTE Device Contraindication: Treatment Not Indicated VTE Drug Contraindication: N/A - Med Ordered
--- NOTE | 2024-03-03 13:38 | MHC.SL.SWA ---
Speech Pathologist Impression: Oral phase dysphagia Risk of Aspiration Due to: Neurological Condition Dysphasia Diet Status: DOWNGRADE to NDD3 Liquid Consistency and Strategies for Safe Swallow: Liquid Intake Recommendation: Thin Liquid Intake Strategies: Small Sips Solid Food Consistency: Dietary Recommendations: Chopped/Advanced (NDD3) Additional Modifications to Solid Foods: Patient seen today at lunch having difficulty cutting up her sandwich and complaining that her protein was too big and too hard. She tolerated small pre-cut bites well. Recommend DOWNGRADE to CHOPPED/ADVANCED (NDD3) diet, continue on THIN liquids, with pills WHOLE or CRUSHED per patient's tolerance. Patient will need assistance with set up of tray and throughout feeding due to L-hemiparesis. CHIEF CLINICAL OFFICER also screened receptive and expressive language. Patient appropriately answered questions, followed commands, and engaged in conversation. She did evidence mild anomia, with difficulty naming less salient items. She has history of prior CVA. Oral Medication Intake: Crushed with Puree Please contact the pharmacy regarding appropriate crushable or liquid drug formulations that are available whenever modified delivery is recommended. Compensatory Strategies and Precautions to be Taken for Safe Swallow: Sitting Upright (90 deg) Small Bites and Sips Alternate Liquids/Solids Rate of Ingestion Change Supervision While Eating and Drinking for Safe Swallow: Total Supervision (1:1) Swallowing Recommended Treatments: Compens. Strategy Educat. Recommendation for Speech: Inpatient Speech Therapy Comment: 1-2 f/u to monitor tolerance of diet and assess speech/language Frequency/Duration: Date Range for Service Req: Timeline to reassess: Sales And Service Representative Clinican/Clinical Fellow: No Supervisory Statement: I have reviewed and agree with the student/clinical fellow's documentation: N/A Speech Language Pathologist: Jami Rene M.A., CCC-CHIEF CLINICAL OFFICER
[2024-03-03] MEDS: Meclizine HCl 25 MG TABLET PO (21:10)
[2024-03-04] VITALS (11 sets, daily range): BP systolic 122–152; BP diastolic 57–71; PULSE 72–124; RESP 18–20; TEMP 36.1–36.6; O2SAT 97–100
[2024-03-04] MEDS: Acetaminophen 325 MG TABLET 650 MG PO ×2 (09:12→21:01)
[2024-03-04] MEDS: Aspirin Enteric Coated 81 MG TABLET.DR PO (09:12)
[2024-03-04] MEDS: Atorvastatin Calcium 80 MG TABLET PO (09:12)
[2024-03-04] MEDS: Meclizine HCl 25 MG TABLET PO ×2 (09:12→21:01)
--- NOTE | 2024-03-04 10:11 | HO.PM.IMPN ---
Subjective Subjective Date of Service: 03/04/24 Interval History: unchanged Physical Exam Vital Signs: Vital Signs: Last Vital Signs Temp 97.4 F 03/04/24 07:53 Pulse 104 H 03/04/24 08:24 Resp 20 03/04/24 07:53 BP 152/68 H 03/04/24 08:24 Pulse Ox 99 03/04/24 07:53 O2 Del Method Room Air 03/04/24 07:53 BMI result Body Mass Index 24.5 Neuro: Other: She is alert and oriented with normal cognitive functions. 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 She has mild left hemiparesis graded at 4/5 with hyperreflexia and extensor plantar response, which is her baseline. Plantar Reflex Responses: downgoing: bilateral Objective Data Active Medications Acetaminophen (Acetaminophen 325 Mg Tablet) 650 mg PO Q4H PRN PRN Reason: Headache Last Admin: 03/04/24 09:12 Dose: 650 mg Documented By: JOE Aspirin (Aspirin Enteric Coated 81 Mg Tablet.) 81 mg PO DAILY [facility] Last Admin: 03/04/24 09:12 Dose: 81 mg Documented By: JOE Atorvastatin Calcium (Atorvastatin Calcium 80 Mg Tablet) 80 mg PO DAILY [facility] Last Admin: 03/04/24 09:12 Dose: 80 mg Documented By: JOE Meclizine HCl (Meclizine Hcl 25 Mg Tablet) 25 mg PO BID [facility] Last Admin: 03/04/24 09:12 Dose: 25 mg Documented By: JOE Labs 03/01/24 06:23 03/01/24 06:23 Assessment and Plan (1) Inability to walk: Status: Acute Plan 73F PMH Hypertension, CVA with residual left hemiparesis and hemangiopericytoma with resection in 2019 and REGISTERED NURSE SURGICAL SERVICES shunt presented with dizziness Vertigo Rule out CVA Check MRI (needs paperwork to coordinate with svp research & ebusiness operations shunt, office notes state non programmable, but need actual implant card), neuro appreciated Aspirin statin PT appreciated - recommending str not c/w bppv, orthostatic negative History of CVA with left hemiparesis Aspirin, statin Hemangiopericytoma Outpatient follow-up Hypertension Not on meds, BP normal DVT prophylaxis with Lovenox Full code reason for continued hospitalization: mri pending, severe vertigo Quality Stroke Does the patient have a stroke diagnosis?: No VTE Prior VTE?: No VTE Risk Level:: Medical - moderate - high VTE Device Contraindication: Treatment Not Indicated VTE Drug Contraindication: N/A - Med Ordered
--- NOTE | 2024-03-04 11:53 | MHC.SL.DTX ---
Dysphagia Diet modifications: Last documented Solid diet consistencies: Chopped/Advanced (NDD3) Last documented Liquid consistency: Thin Last documented Medication Administration: Changes made to current diet?: No: Continue NDD3 Liquid Consistency and Strategies: Liquid Intake Recommendation: Thin Compensatory Strategies for Safe Swallow: Small Sips Compensatory Strategies for Safe Swallow(b): Sitting Upright (90 deg) Small Bites and Sips Alternate Liquids/Solids Rate of Ingestion Change Solid Food Consistency: Dietary Recommendations: Chopped/Advanced (NDD3) Additional Modifications to Solids: Pt seen before lunch. She offers no new complaints. She retells the story of how her chicken sandwich was to big to chew comfortably yesterday. She passes our follow-up timely oral preparation and clearance of a henry cracker dipped in pudding with no overt s/s of aspiration. She swallow subsequent sips of Thin Liquids with no overt s/s of aspiration. She was sitting in a darkened room with no lights on. When offered to turn on her TV, she declined. No further PROCUREMENT MANAGER intervention indicated at this time. Pt is at her safest, least restrictive diet. Oral Medication Intake: Crushed with Puree Strategies and Precautions to be Taken for Safe Swallow: Sitting Upright (90 deg) Small Bites and Sips Alternate Liquids/Solids Rate of Ingestion Change Supervision While Eating and/Drinking: Total Supervision (1:1) Foods to Avoid: Swallowing Recommended Treatments: Compens. Strategy Educat. Level of Impact on: Daily activities: Interpersonal interactions: Education: Employment: Community: Prognosis for Improvement: Recommendation for Speech: Inpatient Speech Therapy Bet Taker Clinican/Clinical Fellow: No Supervisory Statement: I have reviewed and agree with the student/clinical fellow's documentation: N/A Speech Language Pathologist: Maged Thorne M.A., [facility]-PROCUREMENT MANAGER
[2024-03-05] VITALS (8 sets, daily range): BP systolic 112–133; BP diastolic 20–67; PULSE 75–94; RESP 16–18; TEMP 35.8–36.8; O2SAT 97–100
[2024-03-05] MEDS: Meclizine HCl 25 MG TABLET PO ×3 (09:37→21:57)
[2024-03-05] MEDS: Aspirin Enteric Coated 81 MG TABLET.DR PO (09:38)
[2024-03-05] MEDS: Atorvastatin Calcium 80 MG TABLET PO (09:38)
--- NOTE | 2024-03-05 11:10 | MHC.CM.PN ---
Pt is not yet ready for DC, MRI is pending, DCP is acute rehab or STR.
--- NOTE | 2024-03-05 12:23 | P.PNIM_ITS ---
Subjective Subjective Date of Service: 03/05/24 Interval History: reporting dizziness and unsteadiness tolerating diet fall risk Review of Systems Review of Systems: Yes all other systems are reviewed and are negative Physical Exam 2 Vital Signs: Vital Signs: Last Vital Signs Temp 96.8 F 03/05/24 07:56 Pulse 78 03/05/24 08:00 Resp 18 03/05/24 07:56 BP 128/61 03/05/24 08:00 Pulse Ox 98 03/05/24 07:56 O2 Del Method Room Air 03/05/24 07:56 BMI result Body Mass Index 24.5 Const: Other: Constitutional : Awake, interactive, not in distress Neck : Normal inspection, Supple Cardiovascular : RRR, no JVP, no lower extremity edema Respiratory : good bilateral air entry, no crackles, wheezes or rhonchi Gastrointestinal: soft, lax, Normal bowel sounds, Non tender Skin : Warm, Dry Neurological : Alert & oriented x3, left homonymous hemianopsia from the previous stroke. mild left hemiparesis graded at 4/5 with hyperreflexia and extensor plantar response, which is her baseline. Objective Data Active Medications Acetaminophen (Acetaminophen 325 Mg Tablet) 650 mg PO Q4H PRN PRN Reason: Headache Last Admin: 03/04/24 21:01 Dose: 650 mg Documented By: FLORIDALMA Aspirin (Aspirin Enteric Coated 81 Mg Tablet.) 81 mg PO DAILY [facility] Last Admin: 03/05/24 09:38 Dose: 81 mg Documented By: HENOK Atorvastatin Calcium (Atorvastatin Calcium 80 Mg Tablet) 80 mg PO DAILY [facility] Last Admin: 03/05/24 09:38 Dose: 80 mg Documented By: HENOK Meclizine HCl (Meclizine Hcl 25 Mg Tablet) 25 mg PO BID [facility] Last Admin: 03/05/24 09:37 Dose: 25 mg Documented By: HENOK Labs 03/01/24 06:23 03/01/24 06:23 Assessment and Plan (1) Inability to walk: Status: Acute (2) Dizziness: Status: Acute Plan 73F PMH Hypertension, CVA with residual left hemiparesis and hemangiopericytoma with resection in 2019 and FRIT MIXER shunt presented with dizziness acute Vertigo Not improving much with Meclizine positive in left isiah-hallpike position likely indicating positional vertigo affecting the left posterior canal Rule out CVA by MRI continue Aspirin statin Increase Meclizine to Q8H, start Clonazepam small dose tid PT rec STR, follow orthostatic vitals History of CVA with left hemiparesis Aspirin, statin Hemangiopericytoma Outpatient follow-up Hypertension Not on meds, BP normal DVT prophylaxis with Lovenox Full code reason for continued hospitalization: mri pending, severe vertigo pending clinical improvement Quality Stroke Does the patient have a stroke diagnosis?: No VTE Prior VTE?: No VTE Risk Level:: Medical - moderate - high VTE Device Contraindication: Treatment Not Indicated VTE Drug Contraindication: N/A - Med Ordered
[2024-03-05] MEDS: Promethazine HCL 25 MG TABLET PO (13:36)
[2024-03-06 03:02] VITALS: BP 137/63; PULSE 80; RESP 16; TEMP 36.1; O2SAT 98
[2024-03-06] MEDS: Meclizine HCl 25 MG TABLET PO ×3 (05:19→22:13)
[2024-03-06 07:16] VITALS: BP 126/58; PULSE 94; RESP 20; TEMP 36.5; O2SAT 98
--- NOTE | 2024-03-06 11:03 | P.PNIM_ITS ---
Subjective Subjective Date of Service: 03/06/24 Interval History: reporting dizziness and unsteadiness had vomiting episode tolerating diet fall risk Review of Systems Review of Systems: Yes all other systems are reviewed and are negative Physical Exam 2 Vital Signs: Vital Signs: Last Vital Signs Temp 97.7 F 03/06/24 07:16 Pulse 94 03/06/24 07:16 Resp 20 03/06/24 07:16 BP 126/58 L 03/06/24 07:16 Pulse Ox 98 03/06/24 07:16 O2 Del Method Room Air 03/06/24 07:16 BMI result Body Mass Index 24.5 Const: Other: Constitutional : Awake, interactive, not in distress Neck : Normal inspection, Supple Cardiovascular : RRR, no JVP, no lower extremity edema Respiratory : good bilateral air entry, no crackles, wheezes or rhonchi Gastrointestinal: soft, lax, Normal bowel sounds, Non tender Skin : Warm, Dry Neurological : Alert & oriented x3, left homonymous hemianopsia from the previous stroke. mild left hemiparesis graded at 4/5 with hyperreflexia and extensor plantar response, which is her baseline. Objective Data Active Medications Acetaminophen (Acetaminophen 325 Mg Tablet) 650 mg PO Q4H PRN PRN Reason: Headache Last Admin: 03/04/24 21:01 Dose: 650 mg Documented By: FLORIDALMA Aspirin (Aspirin Enteric Coated 81 Mg Tablet.) 81 mg PO DAILY [facility] Last Admin: 03/05/24 09:38 Dose: 81 mg Documented By: HENOK Atorvastatin Calcium (Atorvastatin Calcium 80 Mg Tablet) 80 mg PO DAILY [facility] Last Admin: 03/05/24 09:38 Dose: 80 mg Documented By: HENOK Clonazepam (Clonazepam 0.125 Mg Tab.Rapdis) 0.125 mg PO TID [facility] Last Admin: 03/05/24 20:25 Dose: 0.125 mg Documented By: ELEANOR Diphenhydramine HCl (Diphenhydramine Hcl 50 Mg/Ml Vial) 25 mg IVPUSH ONCE ONE Stop: 03/06/24 11:02 Meclizine HCl (Meclizine Hcl 25 Mg Tablet) 25 mg PO Q8H [facility] Last Admin: 03/06/24 05:19 Dose: 25 mg Documented By: ELEANOR Ondansetron HCl (Ondansetron Hcl 4 Mg/2 Ml Vial) 4 mg IVPUSH Q6H PRN PRN Reason: Nausea and Vomiting Labs 03/01/24 06:23 03/01/24 06:23 Assessment and Plan (1) Inability to walk: Status: Acute (2) Dizziness: Status: Acute Plan 73F PMH Hypertension, CVA with residual left hemiparesis and hemangiopericytoma with resection in 2019 and 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 RECORDER 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 presented with dizziness acute Vertigo Not improving much with Meclizine positive in left isiah-hallpike position likely indicating positional vertigo affecting the left posterior canal MRI negative for any acute findings continue Aspirin statin Increase Meclizine to Q8H, continue Clonazepam small dose tid give Benadryl Zofran for nausea PT rec STR follow orthostatic vitals History of CVA with left hemiparesis Aspirin, statin Hemangiopericytoma Outpatient follow-up Hypertension Not on meds, BP normal DVT prophylaxis with Lovenox Full code reason for continued hospitalization: severe vertigo pending clinical improvement and safe discharge plan Quality Stroke Does the patient have a stroke diagnosis?: No VTE Prior VTE?: No VTE Risk Level:: Medical - moderate - high VTE Device Contraindication: Treatment Not Indicated VTE Drug Contraindication: N/A - Med Ordered
[2024-03-06 11:09] VITALS: BP 133/74; PULSE 74; RESP 18; TEMP 36.2; O2SAT 94
[2024-03-06] MEDS: Atorvastatin Calcium 80 MG TABLET PO (11:25)
[2024-03-06] MEDS: Aspirin Enteric Coated 81 MG TABLET.DR PO (11:25)
[2024-03-06] MEDS: diphenhydrAMINE HCL 50 MG/ML VIAL 25 MG IVPUSH (15:10)
[2024-03-06] MEDS: Lactated Ringers 1,000 ML 125 ML IVCONT (15:10)
[2024-03-06 15:40] VITALS: BP 112/55; PULSE 108; RESP 16; TEMP 36.6; O2SAT 99
[2024-03-06 20:00] VITALS: BP 127/58; PULSE 109; RESP 16; TEMP 36.6; O2SAT 99
[2024-03-07] VITALS: BP 107/59; PULSE 86; RESP 17; TEMP 36.6; O2SAT 98
[2024-03-07 04:00] VITALS: BP 119/88; PULSE 89; RESP 16; TEMP 36.4; O2SAT 96
[2024-03-07] MEDS: Meclizine HCl 25 MG TABLET PO ×2 (05:35→15:09)
[2024-03-07] MEDS: Lactated Ringers 1,000 ML 125 ML IVCONT (05:36)
[2024-03-07 07:55] VITALS: BP 142/58; PULSE 100; RESP 18; TEMP 36.7; O2SAT 100
[2024-03-07] MEDS: Aspirin Enteric Coated 81 MG TABLET.DR PO (08:10)
[2024-03-07] MEDS: Atorvastatin Calcium 80 MG TABLET PO (08:10)
[2024-03-07 11:06] VITALS: BP 142/58; PULSE 100; O2SAT 100
--- NOTE | 2024-03-07 11:08 | MHC.CM.PN ---
Second IMM sent to Dtr / HCP, pt has been medically cleared for DC, [facility] [place] [facility]
[2024-03-07 11:43] VITALS: BP 130/57; PULSE 99; RESP 17; TEMP 36.4; O2SAT 100
--- NOTE | 2024-03-07 12:46 | P.DS_ITS ---
DS: Providers Provider Date of Service: 03/07/24 Date of admission: 02/29/24 16:45 Primary care physician: Elsa Adams MD Consults: 02/29/24 16:45 Consult to Neurology Routine Consulting Provider: Papo Hines Reason for consultation: vertigo DS: Diagnosis Discharge Diagnosis (1) Inability to walk: Status: Acute (2) Dizziness: Status: Acute (3) Benign paroxysmal positional vertigo: Status: Acute DS: Summary Hospital Course Hospital Course: Admission note HPI 73F PMH Hypertension, CVA with residual left hemiparesis and hemangiopericytoma with resection in 2019 and OPERATIONS INSPECTOR shunt presented with 1 day of dizziness. Patient states she woke up and felt very weak and unable to get out of bed and walk. Reports significant dizziness with any head movement. Description of dizziness is vague denies any diplopia or room spinning, has also had nausea without vomiting. Reports that her left-sided weakness feels worse than usual. In ED CT head unremarkable. Hospital course # acute Vertigo Negative CT and MRI for any acute insult. showing chronic changes. She had positive symptoms in left isiah-hallpike position likely indicating positional vertigo affecting the left posterior canal. She was evaluated by neurologist who thought more of an inner ear cause for her symptoms. negative orthostatice findings. She was started on Aspirin and Atorvastatin for secondary prevention of stroke. Kept on Meclizine to Q8H and short course of Clonazepam with fair response as she was able to participate with PT who recommended STR placement. # History of CVA with left hemiparesis, Started on Aspirin, statin # Hemangiopericytoma, Outpatient follow-up Discharge plan Drink plenty of fluids and remain well hydrated Start Aspirin and Atorvastatin for stroke prevention Continue Meclizine 3 times daily Zofran as needed for nausea Physical therapy to improve ambulation and stability Follow with PCP as outpatient Time Attestation Discharge Coordination Time (in mins): 38 Quality: Safe Use of Opioids Does Pt have an Active Cancer Diagnosis on the Problem List?: No Quality: Stroke Does the patient have a stroke diagnosis?: No Physical Exam Vital Signs: Vital Signs: Last Vital Signs Temp 97.5 F 03/07/24 11:43 Pulse 99 03/07/24 11:43 Resp 17 03/07/24 11:43 BP 130/57 L 03/07/24 11:43 Pulse Ox 100 03/07/24 11:43 O2 Del Method Room Air 03/07/24 11:43 BMI result Body Mass Index 24.5 Const: Other: Constitutional : Awake, interactive, not in distress Neck : Normal inspection, Supple Cardiovascular : RRR, no JVP, no lower extremity edema Respiratory : good bilateral air entry, no crackles, wheezes or rhonchi Gastrointestinal: soft, lax, Normal bowel sounds, Non tender Skin : Warm, Dry Neurological : Alert & oriented x3, left homonymous hemianopsia from the previous stroke. mild left hemiparesis graded at 4/5 with hyperreflexia and extensor plantar response, which is her baseline. DS: Data Imaging MRI - head: Radiologist's impression: ITS Impressions Head CT 02/29/24 12:25 IMPRESSION: Stable head CT exam with right parietal approach OPERATIONS INSPECTOR shunt catheter with tip in the body of the right lateral ventricle. Size of ventricles similar to previous exams. Encephalomalacia and gliosis of the right frontal and parietal lobes and ex vacuo dilatation of the right lateral ventricle similar to previous exams. Brain MRI 03/05/24 13:00 IMPRESSION: 1. No acute intracranial abnormalities. 2. Changes of prior right parietal craniotomy for resection of a subjacent mass. Chronic cystic encephalomalacia of the right occipitoparietal lobes. 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 3. Extensive chronic white matter changes and generalized cerebral volume loss. Discharge Plan Discharge Anticipated Discharge Date/Time: 03/07/24 12:41 Patient Disposition: [facility] Discharge Diagnosis: Vertigo Referrals: [facility] [Outside] - 1 Week Elsa Denis MD [Primary Care Provider] - 1 Week Discharge Medications: New meclizine 25 mg Tablet 25 mg PO Q8H Qty: 30 0RF ondansetron 4 mg tablet,disintegrating 4 mg PO Q8H PRN (Reason: nausea and vomiting) Qty: 20 0RF atorvastatin 40 mg tablet 40 mg PO BEDTIME Qty: 90 0RF aspirin 81 mg capsule 81 mg PO DAILY Qty: 90 0RF Discharge Orders: Discharge Order (Routine); Ordered 03/07/24 Ordered By: Dylon Fisher Diet: Advance to usual diet Activity on Discharge: As tolerated Stand Alone Forms: Patient Portal Discharge page Print Language: Yoruba Care Plan Goals: You were evaluated for vertigo. MRI and CT scan of the brain did not show evidence of stroke. your symptoms likely related to inner ear problem called benign positional vertigo that has improved with Meclizine and nausea medication which will continue as outpatient. Drink plenty of fluids and remain well hydrated Start Aspirin and Atorvastatin for stroke prevention Continue Meclizine 3 times daily Zofran as needed for nausea Physical therapy to improve ambulation and stability Follow with PCP as outpatient Health Concerns: Read below Plan of Treatment: Read below Assessment: Read below
== END 2024-03-07 15:55 | disposition skilled nursing facility (03) | DRG 149 ==
LOC: HO.ED 09:05 → HO.EDOVER 16:49 → HO.IMC 23:29
PROVIDERS: Admitting Provider Internal Medicine; Emergency Provider Emergency Medicine Emergency Medical Services; PCP Internal Medicine; Visit Provider Student in an Organized Health Care Education/Training Program
DX: H81.12 Benign paroxysmal vertigo, left ear (principal); I69.354 Hemiplegia and hemiparesis following cerebral infarction affecting left non-dominant side; I69.398 Other sequelae of cerebral infarction; I10 Essential (primary) hypertension; H53.462 Homonymous bilateral field defects, left side; Z86.03 Personal history of neoplasm of uncertain behavior; Z98.2 Presence of cerebrospinal fluid drainage device
CPT/HCPCS: 36415; 70450; 70551; 80048; 80061; 80076; 81001; 85025; 85027; 85610; 87086; 92526; 92610; 95992; 97110; 97162; 97166; 97530; 99285; J1200; J2405; J7120

== ENCOUNTER → 2024-02-29 16:45 | Outpatient (BNV) | payer OTHER, SELFPAY | PROVIDERS: Admitting Provider Internal Medicine; Emergency Provider Emergency Medicine Emergency Medical Services; PCP Internal Medicine; Visit Provider Psychiatry & Neurology Neurology | DX: I69.354 Hemiplegia and hemiparesis following cerebral infarction affecting left non-dominant side (principal); R42 Dizziness and giddiness; R26.2 Difficulty in walking, not elsewhere classified | CPT/HCPCS: 99222 ==

== ENCOUNTER → 2024-02-29 16:45 | Outpatient (BNV) | payer OTHER, SELFPAY | PROVIDERS: Admitting Provider Internal Medicine; Emergency Provider Emergency Medicine Emergency Medical Services; PCP Internal Medicine; Visit Provider Internal Medicine | DX: I69.354 Hemiplegia and hemiparesis following cerebral infarction affecting left non-dominant side (principal); H81.10 Benign paroxysmal vertigo, unspecified ear | CPT/HCPCS: 99223; 99231; 99232; 99239 ==

== ENCOUNTER 2024-04-04 13:38 | Outpatient (AMB) | payer OTHER, SELFPAY ==
--- NOTE | 2024-04-04 13:41 | MHC.PC.OV ---
Vital Signs 04/04/24 13:43 Height 5 ft Weight 125 lb 10.616 oz BMI 24.5 BP 112/60 Blood Pressure Location Rt brachial Position Sitting Pulse 94 Pulse Source Pulse Oximeter Pulse Oximetry (%) 99 Oxygen Delivery Method Room Air Intake Visit Reasons: discharge from [place] Intake Note: Patient is here for hospital discharge follow up. Patient was discharged from [facility] on 03/07/24, [place] on 03/07/24 to 03/25/24 Sales Representative [employer] Required: Yes Sales Representative [employer] Language: Polish Information Interpreted: non-clinical & clinical Copy Manager: Present Accompanied by: Daughter Allergies No Known Allergies [No Known Allergies*] Allergy (Verified 04/04/24 13:43) Tobacco use date assessed: 04/04/24 Fall risk assessment: No Falls in past year Last assessed Fall Risk: 04/04/24 Dental Screening Dental Screen Date: 09/27/23 HPI HPI Comments History of Present Illness Details 73 y/o female patient who presents to the clinic for ED follow up. Pt was admitted to [facility] - ED for Dizziness. DOS: 02/29/24 and DOD: Same. Pt was diagnosed with Vertigo. Today Pt feels good and no concerns. Pt asking for Hospital Bed for home. [facility] Medical History (Updated 04/04/24 @ 14:12 by Rita Ibanez NP) History of stroke Left hemiplegia Renal calculi Cholelithiasis without cholecystitis Adrenal abnormality Acute cholecystitis Surgical History (Updated 04/04/24 @ 13:51 by ISA Waterman) History of cataract surgery Fracture of right hip requiring operative repair History of brain surgery Family History Brother History of bone cancer History of pancreatic cancer Father History of skin cancer of unknown type Social History Housing: Apartment Alcohol intake: never Patient Tobacco Use Status: Never used Tobacco e-Cigarette/Vaping Use: Never Used Second Hand Smoke Exposure: No service: No Current occupational status: disabled Cognitive needs: Yes (Wheelchair, Walker) Hearing needs: No Vision needs: Yes (Reading Glasses) Questionnaire Thrive Questionnaire Date Thrive assessed: 03/01/24 FREEDOM-7 AMB Questionnaire FREEDOM-7 Date FREEDOM - 7 assessed: 09/27/23 Source: Developed by Drs. Demetri Lewis, Diamante White, Gagan Bullard and colleagues, with an educational analy from [employer]. Review of Systems Const All systems reviewed & are unremarkable except as noted in HPI and below Physical exam (Primary Care) Vital Signs: Last Vital Signs Pulse 94 04/04/24 13:43 BP 112/60 04/04/24 13:43 Pulse Ox 99 04/04/24 13:43 Oxygen Delivery Method Room Air 04/04/24 13:43 BMI result Body Mass Index 24.5 Tobacco/Smoking Status: Tobacco use Status Tobacco use date assessed 04/04/24 04/04/24 13:53 Patient Tobacco Use Status Never used Tobacco 04/04/24 13:53 e-Cigarette/Vaping Use Never Used 04/04/24 13:53 Thrive Assessment: Date of Thrive Assessment Date Thrive assessed 03/01/24 04/04/24 13:53 Assessment and Plan Assessment & Plan (1) Benign paroxysmal positional vertigo: Code(s): H81.10 - Benign paroxysmal vertigo, unspecified ear Qualifiers: Laterality: unspecified laterality Qualified Code(s): H81.10 - Benign paroxysmal vertigo, unspecified ear Plan: Resolved, denies dizziness. (2) Dizziness: Code(s): R42 - Dizziness and giddiness Plan: Resolved. Stable. Coding Level of Care Code Est Pt Level 4 (24218) Diagnoses Benign paroxysmal positional vertigo, unspecified laterality H81.10 Laterality: unspecified laterality Dizziness R42 Comment Spent 20 minutes reviewing hospital notes and labs.
[2024-04-04 13:43] VITALS: BP 112/60; PULSE 94; O2SAT 99; BMI 24.5
== END 2024-04-04 16:10 | disposition home or self-care (01) ==
PROVIDERS: PCP Internal Medicine; Visit Provider Nurse Practitioner Family
DX: H81.10 Benign paroxysmal vertigo, unspecified ear (principal); R42 Dizziness and giddiness
CPT/HCPCS: 99214

== ENCOUNTER 2024-04-09 14:23 | Outpatient (AMB) | payer OTHER, SELFPAY ==
--- NOTE | 2024-04-09 14:32 | MHC.PC.OV ---
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 Required: No Accompanied by: Daughter Allergies No Known Allergies [No Known Allergies*] Allergy (Verified 04/09/24 14:42) Medication List - Last Reconciled 04/09/24 by Elsa Adams MD aspirin 81 mg PO DAILY atorvastatin 40 mg PO BEDTIME meclizine 25 mg PO Q8H ondansetron 4 mg PO Q8H PRN Tobacco use date assessed: 04/04/24 Fall risk assessment: No Falls in past year Last assessed Fall Risk: 04/09/24 Dental Screening Dental Screen Date: 09/27/23 HPI HPI Comments History of Present Illness Details This is a 73 year female with history of brain cancer removed years ago which cause her to have a stroke and left hemiplegia requiring a wheelchair to move that comes today accompanied by daughter which is the nurse practitioner hospitalist for the need for hospital bed. Due to her left hemiplegia it is very hard for her to move out of bed even with assistance. She will highly benefit from hospital bed. She also has vertigo stable with meclizine as needed. COUNT INCLUDES [facility] Medical History (Updated 04/09/24 @ 14:50 by Elsa Adams MD) Left hemiplegia History of stroke Renal calculi Cholelithiasis without cholecystitis Adrenal abnormality Acute cholecystitis Surgical History History of cataract surgery Fracture of right hip requiring operative repair History of brain surgery Family History Brother History of bone cancer History of pancreatic cancer Father History of skin cancer of unknown type Social History Housing: Apartment Alcohol intake: never Patient Tobacco Use Status: Never used Tobacco e-Cigarette/Vaping Use: Never Used Second Hand Smoke Exposure: No service: No Current occupational status: disabled Cognitive needs: Yes (Wheelchair, Walker) Hearing needs: No Vision needs: Yes (Reading Glasses) Questionnaire Thrive Questionnaire Date Thrive assessed: 03/01/24 FREEDOM-7 AMB Questionnaire FREEDOM-7 Date FREEDOM - 7 assessed: 09/27/23 Source: Developed by Drs. Demetri Lewis, Diamante White, Gagan Bullard and colleagues, with an educational analy from [employer]. Review of Systems Const All systems reviewed & are unremarkable except as noted in HPI and below Card Denies chest pain at rest, Denies chest pain with activity, Denies edema, Denies irregular heart rhythm, Denies claudication, Denies dyspnea, Denies dyspnea on exertion, Denies orthopnea, Denies paroxysmal nocturnal dyspnea and Denies slow heart rate Resp Denies cough, Denies dyspnea and Denies dyspnea on exertion GI Denies abdominal pain, Denies change in bowel habits, Denies excessive flatus, Denies nausea and Denies vomiting Neuro Reports focal weakness Physical exam (Primary Care) Vital Signs: Last Vital Signs BP 118/72 04/09/24 14:33 BMI result Body Mass Index 24.8 Tobacco/Smoking Status: Tobacco use Status Tobacco use date assessed 04/04/24 04/09/24 14:38 Patient Tobacco Use Status Never used Tobacco 04/09/24 14:38 e-Cigarette/Vaping Use Never Used 04/09/24 14:38 Thrive Assessment: Date of Thrive Assessment Date Thrive assessed 03/01/24 04/09/24 14:38 Const Limitations: wheelchair Resp Effort & Inspection: normal respiratory effort Auscultation: clear to auscultation bilaterally Cardio Jugular venous distension: no JVD Rate: regular rate Rhythm: regular rhythm Heart sounds: S1 normal heart sound present and S2 normal heart sound present Neuro Motor exam (neuro): Abnormal motor strength present (5/5 right, 1/5 left) Extrem General: Yes full ROM Assessment and Plan Assessment & Plan (1) Left hemiplegia: Code(s): G81.94 - Hemiplegia, unspecified affecting left nondominant side Plan: Hospital bed ordered. (2) Benign paroxysmal positional vertigo: Code(s): H81.10 - Benign paroxysmal vertigo, unspecified ear Qualifiers: Laterality: unspecified laterality Qualified Code(s): H81.10 - Benign paroxysmal vertigo, unspecified ear Plan: Continue meclizine as needed. Coding Level of Care Code Est Pt Level 3 (44811) Complex EM visit Add On G2211 Diagnoses Left hemiplegia G81.94 Benign paroxysmal positional vertigo, unspecified laterality H81.10 Laterality: unspecified laterality Time Spent (min) 19
[2024-04-09 14:33] VITALS: BP 118/72; BMI 24.8
== END 2024-04-09 14:57 | disposition home or self-care (01) ==
PROVIDERS: PCP Internal Medicine; Visit Provider Internal Medicine
DX: G81.94 Hemiplegia, unspecified affecting left nondominant side (principal); H81.10 Benign paroxysmal vertigo, unspecified ear
CPT/HCPCS: 99213; G2211

== ENCOUNTER 2024-08-02 10:23 | Outpatient (REF) | payer OTHER, SELFPAY ==
--- NOTE | ~2024-08-02 | MM_ITS ---
EXAMINATION: MM SCREENING DIGITAL BREAST TOMOSYNTHESIS, BILATERAL CLINICAL INFORMATION: Screening. Asymptomatic. COMPARISON: Mammography: Comparison is made with available priors TECHNIQUE: Digital breast mammography with tomosynthesis is performed in both the craniocaudal and mediolateral oblique views along with computer-aided detection (CAD). FINDINGS: The breasts are heterogeneously dense, which may obscure small masses (ACR BI-RADS breast composition Category c). There are no significant masses, abnormal calcifications, or other abnormalities. MM/MM tomosynthesis screening BI IMPRESSION: No mammographic evidence of malignancy. ASSESSMENT: BI-RADS BI-RADS 1 - Negative RECOMMENDATION: Routine annual mammography screening. 1 year F/U This examination should not preclude the clinical evaluation of a suspicious palpable abnormality. This patient's information was entered into a reminder system with a target due date for their next mammogram. Electronically signed by: María Frazier DO 08/13/2024 12:07 PM [facility]
== END 2024-08-02 10:24 | disposition home or self-care (01) ==
LOC: HO.MAMMO 10:23
PROVIDERS: PCP Internal Medicine; Visit Provider Internal Medicine
DX: Z12.31 Encounter for screening mammogram for malignant neoplasm of breast (principal)
CPT/HCPCS: 77063; 77067

== ENCOUNTER → 2024-08-02 10:30 | Outpatient (BNV) | payer OTHER, SELFPAY | PROVIDERS: PCP Internal Medicine; Visit Provider Internal Medicine | DX: Z12.31 Encounter for screening mammogram for malignant neoplasm of breast (principal) | CPT/HCPCS: 77063; 77067 ==

== ENCOUNTER 2024-09-18 11:29 | Outpatient (REF) | payer OTHER, SELFPAY ==
--- NOTE | ~2024-09-18 | US_ITS ---
EXAMINATION: US SCREENING ULTRASOUND BREAST, BILATERAL CLINICAL INFORMATION: Dense breasts on mammography. Screening ultrasound. Patient unable to stand. COMPARISON: Comparison is made with available prior examinations. TECHNIQUE: Ultrasound is performed using grayscale imaging and color Doppler. Imaging is performed to include the four quadrants and retroareolar region. Both breasts are imaged. FINDINGS: Right breast: There is no suspicious finding by ultrasound. There is no solid mass or focal architectural abnormality. Left breast: There is no suspicious finding by ultrasound. There is no solid mass or focal architectural abnormality. US/US breast BI complete IMPRESSION: No suspicious findings on screening breast ultrasound. ASSESSMENT: BI-RADS 1 - Negative RECOMMENDATION: 1 year F/U This patient's information was entered into a reminder system with a target due date for their next mammogram. Electronically signed by: María Frazier DO 09/18/2024 12:23 PM [facility]
== END 2024-09-18 11:30 | disposition home or self-care (01) ==
LOC: HO.MAMMO 11:29
PROVIDERS: PCP Internal Medicine; Visit Provider Internal Medicine
DX: Z12.39 Encounter for other screening for malignant neoplasm of breast (principal)
CPT/HCPCS: 76641

== ENCOUNTER → 2024-09-18 11:31 | Outpatient (BNV) | payer OTHER, SELFPAY | PROVIDERS: PCP Internal Medicine; Visit Provider Internal Medicine | DX: R92.2 Inconclusive mammogram (principal); R92.30 Dense breasts, unspecified | CPT/HCPCS: 76641 ==

== ENCOUNTER 2024-10-01 09:52 | Outpatient (AMB) | payer OTHER, SELFPAY ==
--- NOTE | 2024-10-01 10:01 | A.OFFPC_ITS ---
Vital Signs 10/01/24 10:03 Height 5 ft Weight 135 lb 2.294 oz BMI 26.4 BP 110/72 Blood Pressure Location Lt brachial Position Sitting Intake Visit Reasons: Annual Exam Intake Note: Patient here for an annual physical exam Chief Ii Dispatcher Required: No Accompanied by: Daughter Allergies No Known Allergies [No Known Allergies*] Allergy (Verified 10/01/24 10:39) Medication List - Last Reconciled 10/01/24 by Elsa Adams MD atorvastatin 40 mg PO BEDTIME Tobacco use date assessed: 10/01/24 Fall risk assessment: No Falls in past year Last assessed Fall Risk: 10/01/24 Dental Screening Dental Screen Date: 10/01/24 Did you have a dental visit in the last 12 months?: No Was dental information given to patient?: Patient has dentist HPI HPI Comments History of Present Illness Details This is a 73-year-old female that comes for her physical exam. She is in a wheelchair due to loss of balance needed for long distance. Accompanied by family member. Hebrew-speaking and I did translate. Mammogram done last year and was normal. Colonoscopy done 2014 and needs another colonoscopy this year. No need for Pap smear due to age. Has left hemiplegia after craniotomy but is able to walk short distance. Will have pneumonia vaccine today[facility] Medical History (Updated 10/01/24 @ 12:58 by Elsa Adams MD) Left hemiplegia History of stroke Renal calculi Cholelithiasis without cholecystitis Adrenal abnormality Acute cholecystitis Surgical History (Updated 10/01/24 @ 12:58 by Elsa Adams MD) History of cataract surgery Fracture of right hip requiring operative repair History of brain surgery Family History (Updated 10/01/24 @ 10:50 by Elsa Adams MD) Brother History of bone cancer History of pancreatic cancer Father History of skin cancer of unknown type Mother Diabetes mellitus Social History Housing: Apartment Alcohol intake: never Patient Tobacco Use Status: Never used Tobacco e-Cigarette/Vaping Use: Never Used Second Hand Smoke Exposure: No service: No Current occupational status: disabled Cognitive needs: Yes (Wheelchair, Walker) Hearing needs: No Vision needs: Yes (Reading Glasses) Questionnaire PHQ-9 Over the last 2 weeks, how often have you been bothered by any of the following problems? 1. Little interest or pleasure in doing things: not at all 2. Feeling down, depressed, or hopeless: not at all 3. Trouble falling or staying asleep, or sleeping too much: not at all 4. Feeling tired or having little energy: not at all 5. Poor appetite or overeating: not at all 6. Feeling bad about yourself - or that you are a failure or have let yourself or your family down: not at all 7. Trouble concentrating on things, such as reading the newspaper or watching television: not at all 8. Moving or speaking so slowly that other people could have noticed. Or the opposite - being so fidgety or restless that you have been moving around a lot more than usual: not at all 9. Thoughts that you would be better off or of hurting yourself in some way: not at all Total score: 0 Depression Screening Interpretation: Negative Depression Screening Done: Yes 59058 - PHQ-9 Billing: Yes Source: Developed by Drs. Demetri Lewis, Diamante White, Gagan Bullard and colleagues, with an educational analy from [employer]. Thrive Questionnaire Date Thrive assessed: 10/01/24 I am a: Patient What is your living situation today?: I have a steady place to live Within the past 12 months, did the food you bought not last and you didn't have the money to get more?: Never true Within the past 12 months, did you worry whether your food would run out before you got money to buy more?: Never true Do you have trouble paying for medicines?: No Do you have trouble getting transportation to medical appointments?: No Do you have trouble paying your heating and electricity bill?: No Do you have trouble taking care of your child, family member or friend?: No Do you have trouble with day-to-day activities such as bathing, preparing meals, shopping, managing finances, etc.?: No Are you currently unemployed and looking for a job?: No Are you interested in more education?: No Please select the resources that you would like help with: None Currently or been in a relationship where the following occur: I choose not to answer THRIVE Score: 0 AUDIT C Alcohol Use Questionnaire (AUDIT-C) 1. How often do you have a drink containing alcohol?: Never Total Score: 0 Score Reviewed/Action Taken: No FREEDOM-7 AMB Questionnaire FREEDOM-7 Date FREEDOM - 7 assessed: 10/01/24 Feeling nervous, anxious, or on edge: 0 = Not at all Not being able to stop or control worryin = Not at all Worrying too much about different things: 0 = Not at all Trouble relaxin = Not at all Being so restless that it is hard to sit still: 0 = Not at all Becoming easily annoyed or irritable: 0 = Not at all Feeling afraid as if something awful might happen: 0 = Not at all Total FREEDOM-7 score (0-4 normal; 5-9 mild; 10-14 moderate; 15-21 severe): 0 Source: Developed by Drs. Demetri Lewis, Diamante White, Gagan Bullard and colleagues, with an educational analy from [employer]. FREEDOM-7 Assessment Billing FREEDOM-7 Assessment Tool: FREEDOM-7 Assessment 78543 Review of Systems Const All systems reviewed & are unremarkable except as noted in HPI and below Card Denies chest pain at rest, Denies chest pain with activity, Denies edema, Denies irregular heart rhythm, Denies claudication, Denies dyspnea, Denies dyspnea on exertion, Denies orthopnea, Denies paroxysmal nocturnal dyspnea and Denies slow heart rate Resp Denies cough, Denies dyspnea and Denies dyspnea on exertion Neuro Reports focal weakness Physical exam (Primary Care) Vital Signs: Last Vital Signs BP 110/72 10/01/24 10:03 BMI result Body Mass Index 26.4 Tobacco/Smoking Status: Tobacco use Status Tobacco use date assessed 10/01/24 10/01/24 10:09 Patient Tobacco Use Status Never used Tobacco 10/01/24 10:09 e-Cigarette/Vaping Use Never Used 10/01/24 10:09 PHQ-9: PHQ-9 Score PHQ-9: Total score 0 10/01/24 12:33 Depression Screening Interpretation: Negative Thrive Assessment: Date of Thrive Assessment Date Thrive assessed 10/01/24 10/01/24 10:09 Currently or been in a relationship where the following occur: I choose not to answer Const Orientation/consciousness: patient oriented x3 Limitations: wheelchair HENMT Head: Yes normal to inspection, Yes normocephalic and Yes atraumatic Ears: external ears normal Eyes General: appearance normal, both eyes and all related structures Eyelids: Yes eyelids normal Conjunctivae: conjunctivae normal Neck Neck: Yes normal visual inspection and Yes supple Resp Effort & Inspection: normal respiratory effort Auscultation: clear to auscultation bilaterally Cardio Jugular venous distension: no JVD Rate: regular rate Rhythm: regular rhythm Heart sounds: S1 normal heart sound present and S2 normal heart sound present GI Inspection: Yes normal to inspection Palpation (GI): Soft to palpation and nontender Auscultation: normal bowel sounds Skin General skin exam: no rashes or lesions noted Neuro General: patient oriented x3 and no focal motor deficits Motor exam (neuro): Abnormal motor strength present (4/5 left side, 5/5 right side) Extrem General: Yes full ROM Psych Appearance: grossly normal Office Procedures Flu Questionnaire Does the patient have a severe egg allergy?: No Immunizations Fluarix Triv [id number] (PF) 45 mcg (15 mcg x 3)/0.5 mL IM syringe Performing Provider: Elsa Adams MD Performing Location: [facility] Adult [facility] Documented (not given) by: ISA Escudero on 10/01/24 10:09 Reason Not Given: Patient Refused pneumoc 20-katlyn conj-dip cr(PF) 0.5 mL IM syringe Performing Provider: Elsa Adams MD Performing Location: [facility] Administered by: ISA Escudero on 10/01/24 11:04 Dose Route Admin Location Dispensed Lot Number Expiration Date [facility] [place] Proof Load Mechanic 0.5 mL IM Right Deltoid 0.5 mL [id number] 12/23/25 2526-9824-58 [employer]YETH/PFIZER VIS Given Date VIS Provided VIS Publication Date 10/01/24 Single Vaccine 21 Eligibility Eligibility Date Funding Source Not [facility] Eligible 10/01/24 Private Coding Level of Care Code Est Pt Prev Care >65y(94787) Diagnoses Physical exam Z00.00 Left hemiplegia G81.94 Additional Codes FREEDOM-7 Assessment Billing - FREEDOM-7 Assessment Tool: FREEDOM-7 Assessment 97279 ([id number]) PHQ-9 - 20744 - PHQ-9 Billing: Yes ([id number]) Time Spent (min) 30 Assessment & Plan Assessment & Plan (1) Physical exam: Code(s): Z00.00 - Encounter for general adult medical examination without abnormal findings Category: Medical Plan: Repeat in a year. (2) Left hemiplegia: Code(s): G81.94 - Hemiplegia, unspecified affecting left nondominant side Category: Medical Plan: Use wheelchair as needed. Orders: Orders Comprehensive [place]. Panel Fast Today E78.00 - Pure hypercholesterolemia, unspecified XR DEXA axial skeleton Today E78.00 - Pure hypercholesterolemia, unspecified, Z78.0 - Asymptomatic menopausal state Influenza 5795-9246 Immunization Today Z23 - Encounter for immunization Lipid Panel Today E78.5 - Hyperlipidemia, unspecified Pneumococcal 20 Immunization Today Z23 - Encounter for immunization Referrals Open Access Screening Colonoscopy Referral Z12.12 - Encounter for screening for malignant neoplasm of rectum
[2024-10-01 10:03] VITALS: BP 110/72; BMI 26.4
== END 2024-10-01 11:06 | disposition home or self-care (01) ==
PROVIDERS: PCP Internal Medicine; Visit Provider Internal Medicine
DX: Z00.00 Encounter for general adult medical examination without abnormal findings (principal); G81.94 Hemiplegia, unspecified affecting left nondominant side; Z23 Encounter for immunization

== ENCOUNTER → 2024-10-01 09:52 | Outpatient (BNVA) | payer OTHER, SELFPAY | PROVIDERS: PCP Internal Medicine; Visit Provider Internal Medicine | DX: Z00.00 Encounter for general adult medical examination without abnormal findings (principal); E78.00 Pure hypercholesterolemia, unspecified; G81.94 Hemiplegia, unspecified affecting left nondominant side; Z23 Encounter for immunization | CPT/HCPCS: 90471; 90677; 96127; 99397 ==

== ENCOUNTER 2024-11-04 14:10 | Outpatient (REF) | payer OTHER, SELFPAY ==
--- NOTE | ~2024-11-04 | MM_ITS ---
EXAMINATION: DXA BONE DENSITY AXIAL HISTORY: Estrogen deficiency TECHNIQUE: MD [employer] Dual energy absorptiometry (DEXA) of the lumbar spine, total left hip, and femoral neck was performed. COMPARISON: Comparison is made with the prior examination dated 09/29/2022. FINDINGS: The bone mineral density of the lumbar spine is 0.846 with a T-score of -2.8, and a Z-score of -0.9. This represents a BMD change of -1.3% compared to the prior exam. This is not statistically significant. The bone mineral density of the left total hip is 0.557 with a T-score of -3.6, and a Z-score of -1.9. This represents BMD change of -0.5% compared to the prior exam. This is not statistically significant. The bone mineral density of the left femoral neck is 0.564 with a T-score of -3.4, and a Z-score of -1.5. This represents BMD change of 0.0% compared to the prior exam. MM/XR DEXA axial skeleton IMPRESSION: Based on bone mineral density, and according to World Health Organization (WHO) criteria, the diagnosis is consistent with osteoporosis. All bone density values are in grams per centimeter squared (g/cm2). Statistically, 68% of repeat scans fall within 1 SD (+/- 0.010 g/cm2 for AP spine L1-L4) and 1 SD (+/- 0.012 g/cm2 for femur total) FRAX is a trademark of the [employer]'s [place] [employer] Metabolic Bone Disease, a World Health Organization (WHO) Collaborating Center. Electronically signed by: Demetri Verdugo MD 11/04/2024 03:29 PM [facility]
--- OUTSIDE RECORDS SUMMARY | 2024-11-04 15:07 | XMS_ITS | Patient Health Record ---
Author Organization [facility] Address [address] [place] [address] [address] [place] [address] Care Team Providers Care It Account Manager Name Role Phone Annmarie Yin Primary Care Provider Demetri Lloyd [phone] REASON FOR REFERRAL No Information MEDICATIONS Medication SIG (Take, Route, Fr equency, Duration) Notes Start Date End Date Status Suprep Bowel Prep 1 kit as directed Oral ly as directed for 1 dose 10/21/2014 Active SOCIAL HISTORY Sex Assigned At : Social History Observation Description Sex Assigned At Unknown PROBLEMS Problem Type ICD Code Onset Dates Problem Status W/U Status Risk SNOMED Code Notes Problem Colon cancer screening (V76.51) Active confirmed Colon cancer screening (943363428) Problem Other specified pre-operative examination (V72.83) Active confirmed Pre-surgery evaluation ([id number]) PLAN OF TREATMENT Future Test Test Name Order Date COLONOSCOPY 10/21/2014 Next Appt Details Provider Name:Demetri Redman , 02/11/2025 04:20:00 PM, [address] [place] [address], [address], [place], [address], Insurance Providers Payer Name Payer Address Payer Phone Subscriber Number Group Number Insured Name Patient Relationship to Insured Coverage Start Date Coverage End Date [employer] [address] [place] [phone] [id number] JONELLE ALBERTO Self - patient is the insured MEDICAL (GENERAL) HISTORY Medical History History ICD Code Screening Colonoscopy, 2002--negative ex cept for internal hemorrhoids Denies CA,DM,CVA,Lung disease,renal dise ase Osteoporosis Surgical History Surgery Date(Month/Year) SHELIA Laparotomy for intestinal obstruction 2 days after the hysterectomy
== END 2024-11-04 14:11 | disposition home or self-care (01) ==
LOC: HO.MAMMO 14:10
PROVIDERS: PCP Internal Medicine; Visit Provider Internal Medicine
DX: Z13.820 Encounter for screening for osteoporosis (principal); Z78.0 Asymptomatic menopausal state; E78.00 Pure hypercholesterolemia, unspecified
CPT/HCPCS: 77080

== ENCOUNTER → 2024-11-04 14:30 | Outpatient (BNV) | payer OTHER, SELFPAY | PROVIDERS: PCP Internal Medicine; Visit Provider Radiology Diagnostic Radiology | DX: E28.39 Other primary ovarian failure (principal) | CPT/HCPCS: 77080 ==

== ENCOUNTER 2025-06-29 16:09 | Emergency (ER) | payer OTHER, SELFPAY ==
--- OUTSIDE RECORDS SUMMARY | 2025-02-11 12:20 | XMS_ITS ---
Author Organization [facility] Address [address] [place] [phone] Care Team Providers Care Paper Coating Machine Operator Name Role Phone Elsa Denis Primary Care Provider UnavailDemetri Phelps [phone] REASON FOR VISIT screening colonoscopy Encounters Encounter Location Date Provider Diagnosis [facility] [address] [place] [phone] 02/11/2025 Demetri Redman Plan Of Treatment Next Appt Details Provider Name:Demetri Redman , 08/07/2025 08:30:00 AM, [address] [place] [address] , [place], [place], [phone], Progress Notes * JONELLE ALBERTO MDOB: 2 (74 yo F)Acc No.[id number]:02/11/2025 Progress Notes Patient: Vahe CASILLAS JONELLE Landa Provider: Marisela Redman MD :1950 A ge:74 Y S ex:Female Date:02/11/2025 Address:[address] [id number] Pcp:Elsa Adams Subjective: * Chief Complaints: * [...] 02/11/2025 Generated for Betsey romero/Aman/Juliann on: 1 06:35 PM EDT
--- OUTSIDE RECORDS SUMMARY | 2025-05-06 09:00 | XMS_ITS ---
Author Organization [facility] Address [address] [facility] [address] [place] [phone] Care Team Providers Care Layer Up Name Role Phone Elsa Denis Primary Care Provider Unavailab Demetri Hardwick [phone] REASON FOR VISIT Patient presents today for a discuss colonoscopy Encounters Encounter Location Date Provider Diagnosis [facility] [address] [facility] [address] [place] [phone] 05/06/2025 Demetri Redman Plan Of Treatment Next Appt Details Provider Name:Demetri Redman , 08/07/2025 08:30:00 AM, [address] [place] [address] , [place], [place], [phone], Progress Notes * JONELLE ALBERTO MDOB: 2 (74 yo F)Acc No.[id number]:05/06/2025 Progress Notes Patient: Vahe CASILLAS JONELLE Landa Provider: Marisela Redman MD :1950 A ge:74 Y S ex:Female Date:05/06/2025 Address:[address] [facility] Pcp:Elsa Adams Subjective: * Chief Complaints: * 1 . Patient presents today for a discuss colonoscopy. * Medical History: Objective: * Vitals: Assessment: Plan: * Treatment: * * The named appointment provid er may or may not be the originator of this progress note, and it is not deemed complete until electronically signed by the appointment provider. Sign off status: Pending * Provider: Marisela Redman MD Date: 0 05/06/2025 Generated for Betsey romero/Aman/Juliann on: 1 06:35 PM EDT
--- NOTE | ~2025-06-29 | XR_ITS ---
CLINICAL HISTORY: pain, injury Three views of the left ankle. Findings: There is an age-indeterminate fracture through the tip of the lateral malleolus. No other fractures are seen. The ankle mortise is intact. There is posterior calcaneal spurring. Impression: Age-indeterminate fracture through the tip of the lateral malleolus. This may be old. This document has been electronically signed by: Geronimo Ordonez MD on 06/29/2025 21:08:02
--- NOTE | ~2025-06-29 | CT_ITS ---
CLINICAL HISTORY: fall, head strike, pain CT of the head without contrast. Comparison 02/29/2024. Findings: There has been a right craniotomy. There is a right-sided ventricular shunt. There is mild atrophy. There is encephalomalacia in the right parietal and occipital lobes with associated gliosis. That are [id number] nonspecific white matter changes. Adjacent to the tip of the ventricular shunt there is a bilobed density similar to previous that is indeterminate. No acute hemorrhage is seen. Prominent asymmetric enlargement of the right lateral ventricle is similar to previous. Impression: No acute hemorrhage. Multiple chronic abnormalities as above. Bilobed density suspicious for mass adjacent to the tip of the ventricular shunt is similar to previous studies. This document has been electronically signed by: Geronimo Ordonez MD on 06/29/2025 18:12:21
--- NOTE | ~2025-06-29 | XR_ITS ---
CLINICAL HISTORY: pain, injury Three views of the left elbow. Findings: Patient positioning limits the study. No definite acute fracture or dislocation is seen. No joint effusion is identified. Impression: No definite acute fractures. This document has been electronically signed by: Geronimo Ordonez MD on 06/29/2025 21:11:29
--- NOTE | ~2025-06-29 | XR_ITS ---
CLINICAL HISTORY: pain, injury Four views left shoulder. Findings: There is an acute fracture through the surgical neck with only minimal displacement. No other fracture or dislocation is seen. Impression: Acute fracture of the surgical neck. This document has been electronically signed by: Geronimo Ordonez MD on 06/29/2025 21:10:03
--- NOTE | ~2025-06-29 | XR_ITS ---
CLINICAL HISTORY: weakness Single view chest. Comparison 03/29/2023. Findings: Heart size is upper limits of normal. No consolidation or pleural effusion is seen. Impression: No consolidation. This document has been electronically signed by: Geronimo Ordonez MD on 06/29/2025 21:09:00
--- NOTE | ~2025-06-29 | XR_ITS ---
CLINICAL HISTORY: pain, injury Four views left wrist. Findings: There is an old ununited fracture of the ulnar styloid. No acute fracture or dislocation is seen. Impression: No acute fractures. This document has been electronically signed by: Geronimo Ordonez MD on 06/29/2025 21:10:54
--- NOTE | ~2025-06-29 | CT_ITS ---
CLINICAL HISTORY: fall, head strike, pain CT of the cervical spine without contrast. No comparison. Findings: No acute fractures are seen. There is no significant malalignment. Mild degenerative changes are present. There is a MOSHGIACH shunt catheter on the right. There is pleural and parenchymal scarring in the upper lungs. There is mild nodularity of the thyroid. Impression: No acute fractures. Other findings as above. This document has been electronically signed by: Geronimo Ordonez MD on 06/29/2025 18:07:40
--- NOTE | 2025-06-29 16:14 | ED_ITS ---
HPI - General Adult General Chief complaint: Fall Stated complaint: fall, weakness, pain lt arm +luis enrique Time Seen by Provider: 06/29/25 16:14 Source: patient, family (patient's daughter), EMS and citrus picker (all interactions with this patient were facilitated with an [facility] corporate librarian) Mode of arrival: EMS Limitations: language barrier (all interactions with this patient were facilitated with an [facility] corporate librarian) History of Present Illness ED Provider: Alyssa Flood PA-C HPI narrative: Patient is a 74 year old assigned female at with a history of stroke with residual left sided deficit, brain cancer, blindness, and kidney stones presenting to the emergency department today with left shoulder pain after a fall. Patient states that she used the restroom then when to stand up and fell over. Patient states that she did not hit her head or have any loss of consciousness. EMS states that the patient's daughter had concerns about the patient living alone. Patient denies any other complaints at this time. Related Data Home Medications ?Medication ?Instructions ?Recorded ?Confirmed acetaminophen 325 mg tablet 325 mg PO QID PRN Pain 04/1706/30/25 Allergies Allergy/AdvReac Type Severity Reaction Status Date / Time No Known Allergies (No Known Allergy Verified 06/29/25 16:18 Allergies*) Review of Systems 2 Constitutional: Constitutional: Reports as per HPI Eyes: Eyes: Reports as per HPI ENT: Reports as per HPI Cardiovascular: Cardiovascular: Reports as per HPI Respiratory: Respiratory: Reports as per HPI Gastrointestinal: Gastrointestinal: Reports as per HPI Genitourinary: Genitourinary: Reports as per HPI Musculoskeletal: Musculoskeletal: Reports as per HPI Integumentary/Breasts: Skin/Breast: Reports as per HPI Neurologic: Reports as per HPI Psychiatric: Psychiatric: Reports as per HPI Endocrine: Endocrine: Reports as per HPI Hematologic/Lymphatic: Hematologic/Lymphatic: Reports as per HPI Allergic/Immunologic: Allergic/Immunologic: Reports as per HPI [facility] Past Medical History Attestation statement: The following information was validated with the patient. (all information validated with the patient's daughter) Source: old records reviewed, obtained from family (patient's daughter provided additional history and confirmed the history provided by the patient. ) and nursing notes reviewed Medical History Left hemiplegia History of stroke Renal calculi Cholelithiasis without cholecystitis Adrenal abnormality Acute cholecystitis Surgical History History of cataract surgery Fracture of right hip requiring operative repair History of brain surgery Family History Family History Brother History of bone cancer History of pancreatic cancer Father History of skin cancer of unknown type Mother Diabetes mellitus Social History Social History Housing: Apartment Alcohol intake: never Patient Tobacco Use Status: Never used Tobacco Smoked in Last 30 Days: No e-Cigarette/Vaping Use: Never Used Second Hand Smoke Exposure: No Use of substances other than those prescribed or required for medical reasons: No Advance Directives: Yes Advance Directives on File: Yes Advance Directives Date on File: 03/10/24 Do you have a plan to hurt others: No Plan service: No Current occupational status: disabled Cognitive needs: Yes (Wheelchair, Walker) Hearing needs: No Vision needs: Yes (Reading Glasses) Physical Exam ED Vital Signs: Vital Signs - 24 hr 06/30/25 14:53 06/30/25 20:28 06/30/25 23:46 Temperature 98.2 F 97.2 F 97.2 F Pulse Rate 100 84 64 Respiratory Rate 16 18 18 Blood Pressure 157/59 H 129/72 124/60 Pulse Oximetry 99 98 94 Oxygen Delivery Method Room Air Room Air 07/01/25 03:58 Temperature 97.3 F Pulse Rate 80 Respiratory Rate 18 Blood Pressure 124/68 Pulse Oximetry 96 Oxygen Delivery Method Room Air BMI result Body Mass Index 25.1 Const General: cooperative, no acute distress, alert and awake Nutritional Appearance: well nourished Orientation/consciousness: patient oriented x3 HENMT Head: Yes normal to inspection and Yes atraumatic Ears: hearing grossly normal bilaterally and external ears normal General nose exam: Normal external nose present, no nasal discharge noted and no epistaxis Face and sinus: Yes normal facial exam, No abrasion and No laceration Mouth: Normal oral and palatal mucosa present, no drooling and no muffled voice Eyes General: appearance normal, both eyes and all related structures Periorbital: periorbital findings normal Eyelids: Yes eyelids normal Conjunctivae: conjunctivae normal Pupils: Equal, round and reactive pupils present EOM: EOMs intact bilaterally Neck Neck: Yes normal visual inspection and Yes full ROM Resp Effort & Inspection: normal respiratory effort and able to speak in complete sentences Neuro General: patient oriented x3, moves all extremities and CN's II-XI intact bilaterally Cranial nerves: Yes Equal, round and reactive pupils present Cognition (Neuro): normal cognition Extrem Other: left ankle swelling and pain with left ankle ROM left shoulder pain with ROM General: Yes capillary refill normal Psych Appearance: grossly normal Mental Status: mental status grossly normal Affect: normal affect Attitude: cooperative Thought process: Normal thought process present Thought content: Normal thought content present Insight: Good insight present (Psych) Course Course Course Narrative: 06/30/25 08:22 MONIQUE Wagoner: Physician observation continued, no overnight events reported by nursing. Awaiting PT eval and CM. Mildly tachycardic this am, will assess pain level. 06/30/25 15:28 MONIQUE Wagoner: PT/CM questioning weight bearing status. Case discussed with attending, Dr. Rodríguez. Given that it is unclear if this fracture is acute or old, splint removed and walking boot applied. Patient may bear weight to left lower leg as tolerated with walking boot on. Time: 08:46 Date: 07/01/25 Provider: ROLDAN Morse Patient in physician observation for case management needs. No acute events reported overnight.? No current issues or complaints. VS stable. Physical therapy assess patient, recommending short-term rehab. Awaiting case management disposition. Time: 13:25 Date: 07/01/25 Provider: ROLDAN Morse Physician observation ended at 1325. Patient will be discharged to [facility] via [facility] at 3:00 p.m. for short-term rehab. Procedures Orthopedic Splinting/Casting Left shoulder: Side: left Upper Extremity Injury Location: shoulder Upper Extremity Immobilizer: sling/shoulder immobilizer Left ankle: Side: left Lower Extremity Immobilizer: posterior splint and stirrup splint Medical Decision Making Medical Decision Making MDM Narrative: Patient is a 74 year old assigned female at with a history of stroke with residual left sided deficit, brain cancer, blindness, and kidney stones presenting to the emergency department today with left shoulder pain after a fall. Patient's physical exam was as noted in the physical exam portion of this note. Patient's blood work was unremarkable. Patient's EKG was unremarkable. Patient's head and c-spine CTs showed no acute process. Patient's left ankle x-ray showed a lateral malleolus fracture. Patient's left shoulder x-ray showed an acute fracture of the humeral surgical neck. Patient's chest x-ray showed no acute process. Patient's left wrist x-ray showed no acute process. Patient's left elbow x-ray showed no acute process. I explained my physical exam findings as well as all test results to the patient and the patient's daughter. I answered all questions asked by the patient and the patient's daughter. Patient's left shoulder was placed in a sling, without incident. Patient's PMS was intact prior to and after sling placement. Patient's left ankle was placed in a posterior short leg splint with stirrups, without incident. Patient's PMS was intact prior to and after splint placement. The patient will not be able to ambulate appropriately given her LUE is in a sling and her LLE is in a splint. Patient placed in observation at 2122 pending physical therapy evaluation and case management evaluation. Patient and the patient's daughter verbalized agreement and understanding with this treatment plan and the patient remaining in the department for case management and physical therapy evaluation. Differential Diagnosis Differential Diagnoses: The differential diagnosis associated with the presentation includes Left humerus fracture Left ankle fracture Fall Admission/Observation Consideration of admission/observation: Escalation of care including admission/observation considered Patient would have been admitted to the hospital had her work up had any findings where hospital admission was appropriate and her clinical presentation warranted hospital admission. Lab Data [facility] Lab Attestation statement: I reviewed the patient's lab results. My interpretation of these results are in the [facility] Rationale portion of this note. 06/29/25 16:48 06/29/25 16:48 Labs: Lab Results 06/29/25 06/30/25 Range/Units 16:48 09:05 WBC 8.3 (4.8-10.8) X10*3/uL RBC 4.87 (4.20-5.50) X10*6/uL Hgb 13.0 (12.0-16.0) g/dl Hct 42.9 (37.0-47.0) % MCV 88.1 (80.0-98.0) fL MCH 26.7 L (27.0-33.0) pg MCHC 30.3 L (31.0-35.0) g/dl RDW 11.9 (11.0-16.0) % Plt Count 245 D (160-400) X10*3/uL MPV 9.6 (9.4-12.3) fL Immature Gran % (Auto) 0.7 H (0.0-0.4) % Neut % (Auto) 60.3 (45-73) % Lymph % (Auto) 30.2 (20-40) % Davison % (Auto) 6.2 (2-11) % Eos % (Auto) 1.8 (0-4) % Baso % (Auto) 0.8 (0-2) % Lymph # (Auto) 2.5 (1.2-4.9) X10*3/uL Davison # (Auto) 0.5 (0.1-1.2) X10*3/uL Eos # (Auto) 0.2 (0.0-0.4) X10*3/uL Baso # (Auto) 0.1 (0.0-0.2) X10*3/uL Abs Immat Gran (auto) 0.06 H (0.00-0.03) X10*3/uL Absolute Neuts (auto) 5.0 (2.0-8.3) x10*3/uL Absolute Nucleated RBC 0.000 (0.0-0.012) X10*3/uL Nucleated RBC % (auto) 0.0 (0.0-0.2) /100WBC PT 11.9 (10.9-12.4) SEC INR 1.0 (0.9-1.1) Sodium 140 (135-145) mmol/L Potassium 3.9 (3.3-5.1) mmol/L Chloride 107 (96-108) mmol/L Carbon Dioxide 26 (22-29) mmol/L Anion Gap 11 L (12-20) BUN 14 (9-16) mg/dL Creatinine 0.92 (0.5-1.4) mg/dL Estim Creat Clear Calc 47.3 Estimated GFR 60 Random Glucose 134 H (60-115) mg/dL Calcium 9.3 (8.4-10.2) mg/dL Magnesium 1.9 (1.6-2.6) mg/dL Total Bilirubin 0.9 (0.0-1.0) mg/dL AST 17 (5-31) U/L ALT 7 (0-31) U/L Alkaline Phosphatase 106 (39-117) U/L Troponin I High Sens < 2.7 (<3.5-17.0) ng/L Total Protein 6.9 (6.5-8.0) g/dL Albumin 4.0 (3.5-5.0) g/dL Influenza Type A (PCR) NEGATIVE (Negative) Influenza Type B (PCR) NEGATIVE (Negative) RSV RNA Qual (PCR) NEGATIVE (Negative) SARS-CoV-2 RNA (RT-PCR) NEGATIVE (Negative) Independent Interpretation I performed an independent interpretation of an: EKG, Plain X-Ray and CT Scan Interpretation: My interpretation is in agreement with the radiologist's impression of these imaging studies. L Reason for Exam: pain, injury CLINICAL HISTORY: pain, injury Three views of the left elbow. Findings: Patient positioning limits the study. No definite acute fracture or dislocation is seen. No joint effusion is identified. Impression: No definite acute fractures. This document has been electronically signed by: Geronimo Ordonez MD on 06/29/2025 21:11:29 Dictated By: Phillip Cavanaugh MD Signed By: Electronically signed by Phillip Cavanaugh MD 06/29/252111 Report Number: [id number] Reason for Exam: fall, head strike, pain CLINICAL HISTORY: fall, head strike, pain CT of the cervical spine without contrast. No comparison. Findings: No acute fractures are seen. There is no significant malalignment. Mild degenerative changes are present. There is a CLINICAL IMPLEMENTATION SPECIALIST shunt catheter on the right. There is pleural and parenchymal scarring in the upper lungs. There is mild nodularity of the thyroid. Impression: No acute fractures. Other findings as above. This document has been electronically signed by: Geronimo Ordonez MD on 06/29/2025 18:07:40 Dictated By: Phillip Cavanaugh MD Signed By: Electronically signed by Phillip Cavanaugh MD 06/29/25 1809 Report Number: [id number] Reason for Exam: fall, head strike, pain CLINICAL HISTORY: fall, head strike, pain CT of the head without contrast. Comparison 02/29/2024. Findings: There has been a right craniotomy. There is a right-sided ventricular shunt. There is mild atrophy. There is encephalomalacia in the right parietal and occipital lobes with associated gliosis. That are rfnu-yc-ybjwxwrz nonspecific white matter changes. Adjacent to the tip of the ventricular shunt there is a bilobed density similar to previous that is indeterminate. No acute hemorrhage is seen. Prominent asymmetric enlargement of the right lateral ventricle is similar to previous. Impression: No acute hemorrhage. Multiple chronic abnormalities as above. Bilobed density suspicious for mass adjacent to the tip of the ventricular shunt is similar to previous studies. This document has been electronically signed by: Geronimo Ordonez MD on 06/29/2025 18:12:21 Dictated By: Phillip Cavanaugh MD Signed By: Electronically signed by Phillip Cavanaugh MD 06/29/25 1813 Reason for Exam: pain, injury CLINICAL HISTORY: pain, injury Three views of the left ankle. Findings: There is an age-indeterminate fracture through the tip of the lateral malleolus. No other fractures are seen. The ankle mortise is intact. There is posterior calcaneal spurring. Impression: Age-indeterminate fracture through the tip of the lateral malleolus. This may be old. This document has been electronically signed by: Geronimo Ordonez MD on 06/29/2025 21:08:02 Dictated By: Phillip Cavanaugh MD Signed By: Electronically signed by Phillip Cavanaugh MD 06/29/252108 Reason for Exam: weakness CLINICAL HISTORY: weakness Single view chest. Comparison 03/29/2023. Findings: Heart size is upper limits of normal. No consolidation or pleural effusion is seen. Impression: No consolidation. This document has been electronically signed by: Geronimo Ordonez MD on 06/29/2025 21:09:00 Dictated By: Phillip Cavanaugh MD Signed By: Electronically signed by Phillip Cavanaugh MD 06/29/252109 Reason for Exam: pain, injury CLINICAL HISTORY: pain, injury Four views left shoulder. Findings: There is an acute fracture through the surgical neck with only minimal displacement. No other fracture or dislocation is seen. Impression: Acute fracture of the surgical neck. This document has been electronically signed by: Geronimo Ordonez MD on 06/29/2025 21:10:03 Dictated By: Phillip Cavanaugh MD Signed By: Electronically signed by Phillip Cavanaugh MD 06/29/252109 Reason for Exam: pain, injury CLINICAL HISTORY: pain, injury Four views left wrist. Findings: There is an old ununited fracture of the ulnar styloid. No acute fracture or dislocation is seen. Impression: No acute fractures. This document has been electronically signed by: Geronimo Ordonez MD on 06/29/2025 21:10:54 Dictated By: Phillip Cavanaugh MD Signed By: Electronically signed by Phillip Cavanaugh MD 06/29/252110 I independently interpreted this EKG and am in agreement with the below findings: Vent. Rate: 95 BPM Atrial Rate: 95 BPM P-R Int: 174 ms QRS Dur: 62 ms QT Int: 358 ms P-R-T Axes: 71 12 37 degrees QTcB Int: 449 ms Normal sinus rhythm Low voltage QRS Nonspecific ST abnormality When compared with ECG of 20-Sep-2023 09:20, No significant change was found DD/ 1632 Radiology Impression Discussion of test interpretation with radiology: I have reviewed the radiologist's reading. Independent Historian Clinical information obtained from an independent historian. History obtained from or confirmed by: EMS (EMS provided additional history and confirmed the history provided by the patient. ) and Other (Patient's daughter provided additional history and confirmed the history provided by the patient. ) Critical Care Time Critical Care Time Critical Care Time: Yes Total Critical Care Time: 32 Attestation: I spent 32 minutes of Critical Care Time with this patient. This does not include time spent on separately reported billable procedures. Discharge Plan Discharge Clinical Impression: Ankle fracture, left Qualifiers: Encounter type: initial encounter Fracture type: closed Qualified Code(s): S 82.892A - Other fracture of left lower leg, initial encounter for closed fracture Fracture of left shoulder Qualifiers: Encounter type: initial encounter Fracture type: closed Qualified Code(s): S 42.92XA - Fracture of left shoulder girdle, part unspecified, initial encounter for closed fracture Patient Disposition: Xfer Inpatient Rehab Fac Transfer Details: [place] [facility] via [facility] at 3:00 p.m. Instructions: Leg Fracture (ED), Arm Fracture in Adults (DC) Additional Instructions: Do NOT stick anything down / into your splint. Do NOT get your splint wet. Do N OT remove your splint. If you have any change in sensation, movement, or color of your left toes - you may loosen the outer DIMAS wraps. If you find yourself loosening the DIMAS wraps to the point of seeing the white splint material underneath - STOP and proceed to your closest Emergency Department, immediately. NO introduzca nada dentro de la f?rosita. NO la moje. NO se la retire. Si nota alg?n cambio en la sensibilidad, el movimiento o el color de los dedos del pie ramesh, puede aflojar las vendas DIMAS externas. Si nota que las afloja hasta el punto de aimee el material parker de la f?rosita debajo, DET?NGASE y acuda inmediatamente al servicio de urgencias m?s cercano. Follow up with your primary care provider and the orthopedic team. Yobany un seguimiento con gilbert m?dico de atenci?n primaria y el equipo ortop?dico. Every 1 hour for 10 minutes you may remove your left sling and move your left ELBOW ONLY to avoid locking the joint. Cada 1 hora elgin 10 minutos puede quitarse el cabestrillo ramesh y cupola tender helper S?LO el CODO ramesh para evitar bloquear la articulaci?n. Return to the emergency department immediately if your symptoms worsen or if you develop any numbness, tingling, dizziness, shortness of breath, difficulty breathing, chest pain, blurry vision, loss of vision, nausea, vomiting, abdominal pain, fever, chills, back pain, or any other complaints. Regrese al departamento de emergencias inmediatamente si daniela s?ntomas empeoran o si presenta entumecimiento, hormigueo, mareos, dificultad para respirar, dificultad para respirar, dolor en el pecho, visi?n borrosa, p?rdida de la visi?n, n?useas, v?mitos, dolor abdominal, fiebre, escalofr?os, dolor de espalda o cualquier otra molestia. Prescriptions: No Action acetaminophen 325 mg Tablet 325 mg PO QID PRN (Reason: Pain) Referrals: [facility] Orth[facility] Surgeons [Provider Group] Referral Note: Call to establish and follow up with the orthopedic team for your left humerus and ankle fractures / breaks. [facility] [Outside] Elsa Denis MD [Primary Care Provider, Internal Medicine] Print Language: Persian
[2025-06-29 16:15] VITALS: BP 154/75; BP 166/67; PULSE 100; PULSE 99; RESP 16; TEMP 36.6; O2SAT 98; O2SAT 99; BMI 25.1
--- NOTE | 2025-06-29 16:22 | ECG_ITS ---
Test Reason : FALL Blood Pressure : */* mmHG Vent. Rate : 95 BPM Atrial Rate : 95 BPM P-R Int : 174 ms QRS Dur : 62 ms QT Int : 358 ms P-R-T Axes : 71 12 37 degrees QTcB Int : 449 ms Normal sinus rhythm Low voltage QRS Nonspecific ST abnormality Abnormal ECG When compared with ECG of 20-Sep-2023 09:20, No significant change was found Referred By: Alyssa Flood Electronically Signed By: ROGER CANTU MD
[2025-06-29 16:55] LABS: MANUAL DIFF FLAG NO
[2025-06-29 16:59] LABS: Hematocrit 42.9 % (37.0-47.0); Hemoglobin 13.0 g/dl (12.0-16.0); Imm Gran Abs Auto 0.06 X10*3/uL (0.00-0.03); Imm Gran Pct Auto 0.7 % (0.0-0.4); Lymphocytes Absolute Auto 2.5 X10*3/uL (1.2-4.9); Mean Corpuscular HGB Conc 30.3 g/dl (31.0-35.0); Mean Corpuscular Hemoglobin 26.7 pg (27.0-33.0); Mean Corpuscular Volume 88.1 fL (80.0-98.0); NRBC Abs Auto 0.000 X10*3/uL (0.0-0.012); NRBC Pct Auto 0.0 /100WBC (0.0-0.2); Platelet Count 245 X10*3/uL (160-400); Red Blood Count 4.87 X10*6/uL (4.20-5.50); White Blood Count 8.3 X10*3/uL (4.8-10.8)
[2025-06-29 17:03] LABS: INTERNATIONAL NORM RATIO 1.0 (0.9-1.1); Prothrombin Time 11.9 SEC (10.9-12.4)
[2025-06-29 17:18] LABS: Alanine Aminotransferase 7 U/L (0-31); Albumin Level 4.0 g/dL (3.5-5.0); Alkaline Phosphatase 106 U/L (39-117); Anion Gap 11 (12-20); Aspartate Amino Transferase 17 U/L (5-31); Blood Urea Nitrogen 14 mg/dL (9-16); Calcium 9.3 mg/dL (8.4-10.2); Carbon Dioxide 26 mmol/L (22-29); Chloride 107 mmol/L (96-108); Creatinine Clr Calc Pharmacy 47.3; Estimated Glomerular Filt Rate 60; Magnesium 1.9 mg/dL (1.6-2.6); Potassium 3.9 mmol/L (3.3-5.1); Sodium 140 mmol/L (135-145); Total Protein 6.9 g/dL (6.5-8.0)
[2025-06-29 17:29] LABS: Troponin-I High Sensitivity < 2.7 ng/L (<3.5-17.0)
--- NOTE | 2025-06-29 17:45 | PC.NURSE ---
a&ox4. vss and up to date. pt biba from home s/p witnessed fall. pt reports she stood up w/ walker to ambulate to the restroom and fell onto left side. denies any dizziness/lightheadedness preceding the fall. family reports recent frequent falls. per family, pt landed on left side - c/o left shoulder pain s/p event. hx previous stroke w/ left sided deficits. family is concerned of pt's safety at home. pt seen/evaluated by provider - remains in c-collar at this time. pt otherwise pending scans to be completed. on RA w/o difficulty - no sob/wob noted. respirations even/unlabored. plan of care ongoing. call chris placed within reach.
[2025-06-29 18:07] VITALS: BP 128/57; PULSE 97; RESP 18; TEMP 36.2; O2SAT 97
--- OUTSIDE RECORDS SUMMARY | 2025-06-29 18:35 | XMS_ITS | Patient Health Record ---
Author Organization [facility] Address [address] [place] [phone] Care Team Providers Care Insurance Instructor Name Role Phone Elsa Denis Primary Care Provider Unavailab Demetri Hardwick [phone] Allergies No Known Allergies Reason For Referral No Information Problems Problem Type SNOMED Code ICD Code Onset Dates Problem Status W/U Status Risk Notes Problem Pre-surgery evaluation (917183749) Other specified pre-operative examination (V72.83) Active confirmed Problem Colon cancer screening (324359643) Colon cancer screening (V76.51) Active confirmed Vital Signs Blood pressure diastolic 77 mm Hg 05/05/2025 Height 61.75 in 05/05/2025 Blood pressure systolic 111 mm Hg 05/05/2025 Weight 135 lbs 05/05/2025 BMI 24.89 kg/m2 05/05/2025 Procedures Procedure Date Ordered Date Performed Result Body Sit e COLONOSCOPY 05/05/2025 N/A Encounters Encounter Location Date Provider Diagnosis [facility] [address] [place] [id number] 05/05/2025 Demetri Redman Colon cancer screeni ng Z12.11 and Preprocedural examination Z01.818 [facility] [address] [place] [phone] 05/05/2025 Demetri Redman [facility] [address] [place] [id number] 01/05/2025 Demetri Redman [facility] [address] [place] [phone] 01/13/2025 Demetri Redman Assessments Encounter Date Diagnosis (ICD Code) Assessment Notes Treatment Notes Treatment Clinical Notes Section Notes 05/05/2025 Colon cancer screening (ICD-10 - Z12.11) Overall, Jonelle appears well. While she does have her left sided weakness and is in a wheelchair, she is otherwise quite healthy. Therefore, given her last colonoscopy being over 10 years ago, she will undergo a follow-up colonoscopy for further screening purposes. We did review the rationale for that in regard to colon cancer prevention. Full consent has been obtained for this, including risks of bleeding and perforation. The procedure will be done with monitored anesthesia care. Again, her family will be able to assist her the night before the procedure with the bowel prep. Jonelle and her daughter were comfortable with this plan. Thank you again for allowing me to participate in Jonelle's care. I shall continue to keep you advised of her progress. 05/05/2025 Preprocedural examination (ICD-10 - Z01.818) Overall, Jonelle appears well. While she does have her left sided weakness and is in a wheelchair, she is otherwise quite healthy. Therefore, given her last colonoscopy being over 10 years ago, she will undergo a follow-up colonoscopy for further screening purposes. We did review the rationale for that in regard to colon cancer prevention. Full consent has been obtained for this, including risks of bleeding and perforation. The procedure will be done with monitored anesthesia care. Again, her family will be able to assist her the night before the procedure with the bowel prep. Jonelle and her daughter were comfortable with this plan. Thank you again for allowing me to participate in Jonelle's care. I shall continue to keep you advised of her progress. Plan Of Treatment Pending Test Test Name Order Date COLONOSCOPY 05/05/2025 Future Test Test Name Order Date COLONOSCOPY 10/21/2014 Next Appt Details Provider Name:Demetri Redman , 08/07/2025 08:30:00 AM, [address] [facility] , [place], [place], [id number], Insurance Providers Payer Name Payer Address Payer Phone Subscriber Number Group Number Insured Name Patient Relationship to Insured Coverage Start Date Coverage End Date [facility] [place] [address] [place] [phone] [id number] ALBERTOJONELLE WINSLOW Self - patient is the insured [facility] [address] [place] [address] [id number] JONELLE ALBERTO Self - patient is the insured Medical (General) History Medical History History ICD Code Screening Colonoscopy, 2002- negative ex cept for internal hemorrhoids Denies [place],DM,CVA,Lung disease,renal dise ase Osteoporosis urinary incontinence stroke Brain tumor-surgery as below---then XRT and LIQUOR RUNNER shunt Negative colonoscopy in 12/2014 Surgical History Surgery Date(Month/Year) Brain surgery for brain tumor 2019 right femur surgery--screws placed 2020 Laparotomy for intestinal obstruction 2 days after the hysterectomy SHELIA
[2025-06-29 19:35] VITALS: BP 142/62; PULSE 95; RESP 18; TEMP 36.7; O2SAT 98
--- NOTE | 2025-06-29 20:02 | PC.NURSE ---
This sports book writer assumed care of this Pt at 1900. Pt A&Ox3, reports 10/10 left arm pain from shoulder to wrist from fall. Attempt made to ambulate Pt to BR, Pt unable due to left arm pain and left ankle pain. Pt incontinent of stool, incontinent care provided. Daughter at bedside. pt taken to x-ray for imaging.
[2025-06-30 00:36] VITALS: BP 152/64; PULSE 106; RESP 18; TEMP 37.1; O2SAT 98
[2025-06-30 05:39] VITALS: BP 149/71; PULSE 110; RESP 20; TEMP 37.1; O2SAT 98
--- NOTE | 2025-06-30 09:52 | PHA.MEDREC ---
Addendum entered by Courtney Caldwell RPh 06/30/25 10:58: Reviewed by [facility] Original Note: Pharmacy Consult ? Medication Reconciliation Pharmacy has completed the medication reconciliation. Pt poor historian. Spoke with pt daughter (Kaitlin) over the phone and she confirmed the pt is not taking anything at this time except for Tylenol as needed for pain.
--- NOTE | 2025-06-30 09:54 | MHC.CM.ED ---
Addendum entered by Nellie Zambrano 06/30/25 12:02: [facility] [place], [facility], [facility], [facility], [facility] and [facility] are able to offer a bed. Kaitlin accepts bed at [facility]. [facility] is in the process of obtaining ins auth. Original Note: Received case management consult overnight. Patient came to the ER due to a fall. Found to have left shoulder fracture and left ankle fracture. Physical therapy eval ordered and pending. Attempted to meet with patient in regards to discharge planning. Patient currently sleeping. Spoke with patient's daughter/HCP, Kaitlin, via telephone at [phone]. 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 PCP verified. Copy of HCP verified to be on file. Kaitlin is in agreement that STR will most likely be needed. Patient has been to [facility] in the past and was not a fan of the facility. Kaitlin agreeable to referral being broadcasted for bed offers and then discussing bed availability. Referral will be broadcasted within 15 miles of patient's home to all facilities that are contracted with her insurance. Continue to monitor for d/c needs.
[2025-06-30 10:33] LABS: Resp Syncy Virus RNA Qual PCR NEGATIVE (Negative); SARS COV2 PCR INHOUSE NEGATIVE (Negative)
[2025-06-30 10:51] VITALS: BP 141/65; PULSE 93; RESP 15; TEMP 36.9; O2SAT 96
--- NOTE | 2025-06-30 13:48 | PC.NURSE ---
report given to YARI Jacinto in overflow at this time.
[2025-06-30 14:53] VITALS: BP 157/59; PULSE 100; RESP 16; TEMP 36.8; O2SAT 99
--- NOTE | 2025-06-30 14:54 | PC.NURSE ---
Received pt from main ED. Pt to overflow ED rm 4. L arm sling in place, as well as cast to LLE. +cms, vitals obtained, pt oriented to room.
--- NOTE | 2025-06-30 17:13 | MHC.EDTECH ---
Assumed care of pt at 1500, pt was one assisted to bedside commode and back into bed with slight difficulty d/t discomfort in leg and arm. RN aware
[2025-06-30 20:28] VITALS: BP 129/72; PULSE 84; RESP 18; TEMP 36.2; O2SAT 98
[2025-06-30 23:46] VITALS: BP 124/60; PULSE 64; RESP 18; TEMP 36.2; O2SAT 94
[2025-07-01 03:58] VITALS: BP 124/68; PULSE 80; RESP 18; TEMP 36.3; O2SAT 96
--- NOTE | 2025-07-01 08:35 | MHC.CM.ED ---
Addendum entered by Nellie Zambrano 07/01/25 11:44: Insurance auth has been obtained. Patient can leave at 3pm. [facility] HUBBARD booked. [facility] with chart. Patient, daughter KaitlinIvon RN and Madelin MONTILLA aware. Original Note: Patient remains in ER overflow. Physical therapy eval sent to [facility]. [facility] is in the process of obtaining ins auth. Continue to monitor for d/c needs.
--- NOTE | 2025-07-01 11:38 | MHC.EDTECH ---
Patient was washed up and her gown and bed sheets were changed, she is resting comfortably in her bed now.
[2025-07-01 13:58] VITALS: BP 131/63; PULSE 94; RESP 16; TEMP 37; O2SAT 97
[2025-07-01 15:14] VITALS: BP 131/63; PULSE 94; RESP 16; TEMP 37; O2SAT 97
== END 2025-07-01 15:15 ==
PROVIDERS: Physician Assistant Medical; Registered Nurse Emergency; Emergency Provider Student in an Organized Health Care Education/Training Program; PCP Internal Medicine
DX: S82.892A Other fracture of left lower leg, initial encounter for closed fracture (principal); S42.92XA Fracture of left shoulder girdle, part unspecified, initial encounter for closed fracture; S09.90XA Unspecified injury of head, initial encounter; W18.30XA Fall on same level, unspecified, initial encounter; Y93.9 Activity, unspecified; Y92.9 Unspecified place or not applicable; Y99.9 Unspecified external cause status; R53.1 Weakness; R55 Syncope and collapse; M54.2 Cervicalgia; M25.512 Pain in left shoulder; M25.532 Pain in left wrist; Z03.818 Encounter for observation for suspected exposure to other biological agents ruled out
CPT/HCPCS: 29105; 36415; 70450; 71045; 72125; 73030; 73080; 73110; 73610; 80053; 83735; 84484; 85025; 85610; 87637; 93005; 97162; 99285

== ENCOUNTER → 2025-06-29 16:16 | Outpatient (BNV) | payer OTHER, SELFPAY | PROVIDERS: PCP Internal Medicine; Visit Provider Radiology Diagnostic Radiology | DX: M54.2 Cervicalgia (principal); R51.9 Headache, unspecified; S42.212A Unspecified displaced fracture of surgical neck of left humerus, initial encounter for closed fracture; R53.1 Weakness; M25.572 Pain in left ankle and joints of left foot; M25.472 Effusion, left ankle; M25.532 Pain in left wrist; M25.522 Pain in left elbow; W18.30XA Fall on same level, unspecified, initial encounter | CPT/HCPCS: 70450; 71045; 72125; 73030; 73080; 73110; 73610 ==

== ENCOUNTER → 2025-06-29 16:22 | Outpatient (BNV) | payer OTHER, SELFPAY | PROVIDERS: Emergency Provider Student in an Organized Health Care Education/Training Program; PCP Internal Medicine; Visit Provider Internal Medicine Cardiovascular Disease | DX: R94.31 Abnormal electrocardiogram [ECG] [EKG] (principal); Z04.3 Encounter for examination and observation following other accident | CPT/HCPCS: 93010 ==

== ENCOUNTER 2025-07-22 13:46 | Outpatient (REF) | payer OTHER, SELFPAY ==
--- NOTE | ~2025-07-22 | XR_ITS ---
EXAMINATION: XR ANKLE 3 OR MORE VIEWS LEFT HISTORY: M25.572 - Pain in left ankle and joints of left foot COMPARISON: Comparison is made with the prior examination dated 06/29/2025. FINDINGS: Three views of the left ankle are submitted. Osseous mineralization is normal. Again seen is a fracture of the tip of the medial malleolus. The appearance is unchanged from the prior study. The joint spaces are preserved. The soft tissues are unremarkable. XR/XR ankle LT min 3V IMPRESSION: Fracture of the tip of the medial malleolus without change. Electronically signed by: Demetri Verdugo MD 07/22/2025 02:37 PM EDT
--- NOTE | ~2025-07-22 | XR_ITS ---
EXAMINATION: XR SHOULDER, LEFT CLINICAL INFORMATION: M25.512 - Pain in left shoulder COMPARISON: June 29, 2025 TECHNIQUE: AP and Y-view projection of the left shoulder. FINDINGS: No gross callus formation in the comminuted fracture left humeral neck. No periosteal bone reaction. XR/XR shoulder LT min 2V IMPRESSION: No healing fracture, left humerus. Electronically signed by: Joseph Bermeo MD 07/22/2025 02:38 PM EDT
== END 2025-07-22 13:47 | disposition home or self-care (01) ==
LOC: HO.HOSX 13:46
PROVIDERS: PCP Internal Medicine; Visit Provider Physician Assistant
DX: S82.52XA Displaced fracture of medial malleolus of left tibia, initial encounter for closed fracture (principal); S42.212A Unspecified displaced fracture of surgical neck of left humerus, initial encounter for closed fracture; W18.30XA Fall on same level, unspecified, initial encounter; Y92.002 Bathroom of unspecified non-institutional (private) residence as the place of occurrence of the external cause
CPT/HCPCS: 73030; 73610; 99202

== ENCOUNTER 2025-07-22 13:46 | Outpatient (AMB) | payer OTHER, SELFPAY ==
--- OUTSIDE RECORDS SUMMARY | 2025-02-11 12:20 | XMS_ITS ---
Author Organization [facility] Address [address] [place] [phone] Care Team Providers Care Softball Winder Name Role Phone Elsa Denis Primary Care Provider UnavailDemetri Phelps [phone] REASON FOR VISIT screening colonoscopy Encounters Encounter Location Date Provider Diagnosis [facility] [address] [place] [phone] 02/11/2025 Demetri Redman Plan Of Treatment Next Appt Details Provider Name:Demetri Redman , 08/07/2025 08:30:00 AM, [address] [place] [address] , [place], [place], [phone], Progress Notes * JONELLE ALBERTO MDOB: 2 (74 yo F)Acc No.[id number]:02/11/2025 Progress Notes Patient: Vahe CASILLAS JONELLE Landa Provider: Marisela Redman MD :1950 A ge:74 Y S ex:Female Date:02/11/2025 Address:[address] [id number] Pcp:Elsa Adams Subjective: * Chief Complaints: * 1 . Screening colonoscopy. * Medical History: Objective: * Vitals: Assessment: Plan: * Treatment: * * The named appointment provid er may or may not be the originator of this progress note, and it is not deemed complete until electronically signed by the appointment provider. Sign off status: Pending * Provider: Marisela Redman MD Date: 0 02/11/2025 Generated for Betsey romero/Aman/Juliann on: 1 05:37 PM EDT
--- OUTSIDE RECORDS SUMMARY | 2025-05-06 09:00 | XMS_ITS ---
Author Organization [facility] Address [address] [facility] [address] [place] [phone] Care Team Providers Care Sole Trimmer Name Role Phone Elsa Denis Primary Care Provider UnavailDemetri Phelps [phone] REASON FOR VISIT Patient presents today for a discuss colonoscopy Encounters Encounter Location Date Provider Diagnosis [facility] [address] [facility] [address] [place] [phone] 05/06/2025 Demetri Redman Plan Of Treatment Next Appt Details Provider Name:Demetri Redman , 08/07/2025 08:30:00 AM, [address] [place] [address] , [place], [place], [phone], Progress Notes * JONELLE ALBERTO MDOB: 2 (74 yo F)Acc No.[id number]:05/06/2025 Progress Notes Patient: Vahe CASILLAS JONELLE Landa Provider: Marisela Redman MD :1950 A ge:74 Y S ex:Female Date:05/06/2025 Address:[address] [facility] Pcp:Elsa Adams Subjective: * Chief Complaints: * [...] 05/06/2025 Generated for Betsey romero/Aman/Juliann on: 1 05:37 PM EDT
--- NOTE | 2025-07-22 13:58 | A.OFFVIS_ITS ---
Intake Visit Reasons: ED/FC Left shoulder pain s/p fall/LT ankle FC Intake Note: Georgie is a 74 year old female who presents today in a wheel chair as a new patient for an ER follow up of left humerus fx and left ankle status post fall on 06/29/25(day of ER visit?.). Per ED note patient fell on her left side upon g etting up from using the restroom. She was seen at [facility] ER where x-rays were obtained, she was placed in an arm sling and a leg splint. Today patient reports having g a little pain and itchiness last night. At times elbow pain. No numbness or tingling. Currently resides at [facility]. Marine Underwriter Required: No Marine Underwriter Services: Marine Underwriter Offered & Declined Accompanied by: Daughter Allergies No Known Allergies (No Known Allergies*) Allergy (Verified 07/22/25 14:05) Medication List - Last Reconciled 07/22/25 by Crow Atkins PA-C acetaminophen 325 mg PO QID PRN HPI HPI ED/FC Left shoulder pain s/p fall/LT ankle FC: Details: 74-year-old female presents to the office today accompanied by her daughter for an injury she sustained to her left shoulder and left ankle on 06/29/25. She date she went to use the bathroom and as she stood to get her walker she fell backward and landed on the ground. She was seen in the emergency department where x-rays of her left shoulder demonstrated a proximal humerus fracture and there was also x-rays of the left ankle which demonstrated a medial malleolar avulsion fracture. Patient was placed in a sling and a boot on her left ankle and referred to rehab and then to our office for ortho eval. [facility] Medical History Left hemiplegia History of stroke Renal calculi Cholelithiasis without cholecystitis Adrenal abnormality Acute cholecystitis Surgical History History of cataract surgery Fracture of right hip requiring operative repair History of brain surgery Family History Brother History of bone cancer History of pancreatic cancer Father History of skin cancer of unknown type Mother Diabetes mellitus Social History Housing: Apartment Alcohol intake: never Patient Tobacco Use Status: Never used Tobacco e-Cigarette/Vaping Use: Never Used Second Hand Smoke Exposure: No Advance Directives Date on File: 03/10/24 service: No Current occupational status: disabled Cognitive needs: Yes (Wheelchair, Walker) Hearing needs: No Vision needs: Yes (Reading Glasses) Review of Systems Const All systems reviewed & are unremarkable except as noted in HPI and below Physical Exam Const General: cooperative and no acute distress Orientation/consciousness: patient oriented x3 Resp Effort & Inspection: normal respiratory effort and able to speak in complete sentences Cardio Peripheral pulses: Peripheral pulses 2+ throughout Neuro General: patient oriented x3 Extrem Other: Left shoulder normal to inspection. Swelling and tenderness over the proximal humerus. Anterior deltoid sensation intact. Elbow and wrist ROM intact. NVI. Left ankle normal to inspection without swelling or ecchymosis. No tenderness to palpation over the medial male or syndesmosis. No tenderness over the lateral mal. Neurovascularly intact. Office Procedures AMB Fracture Care Fracture Billing Code: Fracture Billing Code Results Reviewed Results Reviewed: X-rays of the left shoulder obtained in the office today and reviewed by me show a minimally displaced proximal humerus fracture. X-rays of the left ankle obtained in the office today and reviewed by me show an avulsion fracture of the medial male. Ankle mortise intact. Assessment & Plan Assessment & Plan (1) Closed fracture of left proximal humerus: Code(s): S42.202A - Unspecified fracture of upper end of left humerus, initial encounter for closed fracture Category: Medical (2) Closed left ankle fracture: Code(s): S82.892A - Other fracture of left lower leg, initial encounter for closed fracture Category: Medical Plan Patient will continue with the sling as needed. She can remove the sling for hygiene and physical therapy. No weight-bearing for the upper extremity on the left side. Physical therapy should include a postural training. She has no pain on the left ankle on exam therefore she can discontinue the use of the boot and continue with a lace-up ankle brace with a regular street shoe. I will see her back in 6 weeks with x-rays of the left shoulder, sooner if needed. Orders: Orders XR shoulder LT min 2V Today M25.512 - Pain in left shoulder XR ankle LT min 3V Today M25.572 - Pain in left ankle and joints of left foot Coding Level of Care Code New Pt Level 3 (82217) Complex EM visit Add On G2211 Diagnoses Closed fracture of left proximal humerus S42.202A Closed left ankle fracture S82.892A CPT Codes Fracture Care - Fracture Billing Code: Fracture Billing Code ([id number])
--- OUTSIDE RECORDS SUMMARY | 2025-07-22 17:38 | XMS_ITS | Patient Health Record ---
Author Organization [facility] Address [address] [place] [address] Care Team Providers Care Porter Head Name Role Phone Elsa Denis Primary Care Provider Unavailab Demetri Hardwick [phone] Allergies No Known Allergies Reason For Referral No Information Medications Medication SIG (Take, Route, Frequency, Duration) Notes Start Date End Date Status MiraLax (colon prep) 17 GM/SCOOP mixed with Gatorade or Crystal Light orally begin at 5:00 p.m. the day before the procedure; Duration: 1 days 07/16/2025 Active Dulcolax (colon prep) 5 MG take 2 at 3:0 0 p.m and 2 at 7:00p.m. Orally two tablets twice a day for one day; Duration: 1 days 07/16/2025 Active Problems Problem Type SNOMED Code ICD Code Onset Dates Problem Status W/U Status Risk Notes Problem Pre-surgery evaluation (616147816) Other specified pre-operative examination (V72.83) Active confirmed Problem Colon cancer screening (299951456) Colon cancer screening (V76.51) Active confirmed Vital Signs Blood pressure diastolic 77 mm Hg 05/05/2025 Height 61.75 in 05/05/2025 Blood pressure systolic 111 mm Hg 05/05/2025 Weight 135 lbs 05/05/2025 BMI 24.89 kg/m2 05/05/2025 Procedures Procedure Date Ordered Date Performed Result Body Sit e COLONOSCOPY 05/05/2025 N/A Encounters Encounter Location Date Provider Diagnosis [facility] [address] [place] [phone] 05/05/2025 Demetri Redman Colon cancer screeni ng Z12.11 and Preprocedural examination Z01.818 [facility] [address] [place] [phone] 01/05/2025 Demetri Redman [facility] [address] [place] [phone] 01/13/2025 Demetri Redman [facility] [address] [place] [phone] 05/05/2025 Demetri Redman Assessments Encounter Date Diagnosis (ICD [...] Name:Demetri Redman , 08/07/2025 08:30:00 AM, [address] [facility] , [place], [place], [id number], Insurance Providers Payer Name Payer Address Payer Phone Subscriber Number Group Number Insured Name Patient Relationship to Insured Coverage Start Date Coverage End Date [facility] [address] [place] [phone] [id number] JONELLE ALBERTO Self - patient is the insured MEDICAID OF [employer] [address] [place] [id number] JONELLE ALBERTO Self - patient is the insured Medical (General) History Medical History History ICD Code Screening Colonoscopy, 2002- negative ex cept for internal hemorrhoids Denies [place],DM,CVA,Lung disease,renal dise ase Osteoporosis urinary incontinence stroke Brain tumor-surgery as below---then XRT and SUPERVISOR URANIUM PROCESSING shunt Negative colonoscopy in 12/2014 Surgical History Surgery Date(Month/Year) Brain surgery for brain tumor 2019 right femur surgery--screws placed 2020 Laparotomy for intestinal obstruction 2 days after the hysterectomy SHELIA
== END 2025-07-22 15:12 | disposition home or self-care (01) ==
LOC: HO.HOS 13:47
PROVIDERS: PCP Internal Medicine; Visit Provider Physician Assistant
DX: S42.202A Unspecified fracture of upper end of left humerus, initial encounter for closed fracture (principal); S82.892A Other fracture of left lower leg, initial encounter for closed fracture
CPT/HCPCS: 99203; G2211

== ENCOUNTER → 2025-07-22 14:06 | Outpatient (BNV) | payer OTHER, SELFPAY | PROVIDERS: PCP Internal Medicine; Visit Provider Radiology Diagnostic Radiology | DX: M25.512 Pain in left shoulder (principal); S82.52XA Displaced fracture of medial malleolus of left tibia, initial encounter for closed fracture | CPT/HCPCS: 73030; 73610 ==

== ENCOUNTER 2025-09-03 10:11 | Outpatient (REF) | payer OTHER, SELFPAY ==
--- NOTE | ~2025-09-03 | XR_ITS ---
EXAMINATION: XR SHOULDER, LEFT CLINICAL INFORMATION: M25.512 - Pain in left shoulder COMPARISON: Radiographs on July 22, 2025 TECHNIQUE: Two views of the left shoulder. FINDINGS: Suboptimal positioning partially limits evaluation. No obvious callus formation at the level of the healing comminuted fracture of the left humeral neck. XR/XR shoulder LT min 2V IMPRESSION: Healing left humeral neck fracture. Electronically signed by: Feliciano Irwin MD 09/03/2025 02:30 PM A[facility]DA
== END 2025-09-03 10:12 | disposition home or self-care (01) ==
LOC: HO.HOSX 10:11
PROVIDERS: Visit Provider Physician Assistant
DX: S42.202A Unspecified fracture of upper end of left humerus, initial encounter for closed fracture (principal); X58.XXXA Exposure to other specified factors, initial encounter
CPT/HCPCS: 73030

== ENCOUNTER 2025-09-03 14:10 | Outpatient (AMB) | payer OTHER, SELFPAY ==
--- OUTSIDE RECORDS SUMMARY | 2025-02-11 11:20 | XMS_ITS ---
Author Organization [facility] Address [address] [place] [address] Care Team Providers Care Tube Maker Name Role Phone Elsa Denis Primary Care Provider Unavailab Demetri Hardwick [phone] REASON FOR VISIT screening colonoscopy Encounters Encounter Location Date Provider Diagnosis [facility] [address] [place] [phone] 02/11/2025 Demetri Redman Plan Of Treatment No Information Progress Notes * JONELLE ALBERTO MDOB: (74 yo F)Acc No.[id number]:02/11/2025 Progress Notes Patient: JONELLE LAMA Provider: Marisela Redman MD :1950 A ge:74 Y S ex:Female Date:02/11/2025 Address:[facility] [address] [id number] Pcp:Elsa Adams Subjective: * Chief Complaints: * S creening colonoscopy * The named appointment provid er may or may not be the originator of this progress note, and it is not deemed complete until electronically signed by the appointment provider. Sign off status: Pending * Provider: Marisela Redman MD Date: 0 02/11/2025 Generated for Betsey romero/Aman/eTransmitting on: 1 11/04/2024 09:42 PM EST
--- OUTSIDE RECORDS SUMMARY | 2025-05-06 08:00 | XMS_ITS ---
Author Organization [facility] Address [address] [place] [phone] Care Team Providers Care Machinist Name Role Phone Elsa Denis Primary Care Provider UnavailDemetri Phelps [phone] REASON FOR VISIT Patient presents today for a discuss colonoscopy Encounters Encounter Location Date Provider Diagnosis [facility] [address] [place] [phone] 05/06/2025 Demetri Redman Plan Of Treatment No Information Progress Notes * JONELLE ALBERTO MDOB: (74 yo F)Acc No.[id number]:05/06/2025 Progress Notes Patient: JONELLE LAMA Provider: Marisela Redman MD :1950 A ge:74 Y S ex:Female Date:05/06/2025 Address:[facility] Pcp:Elsa Adams Subjective: * Chief Complaints: * P atient presents today for a discuss colonoscopy * The named appointment provid er may or may not be the originator of this progress note, and it is not deemed complete until electronically signed by the appointment provider. Sign off status: Pending * Provider: Marisela Redman MD Date: 0 05/06/2025 Generated for Cliftoni ng/Fakoffig/eTransmitting on: 1 11/04/2024 09:41 PM EST
--- NOTE | 2025-09-03 14:22 | A.OFFVIS_ITS ---
Intake Visit Reasons: OV-Left Proximal Humerus Fracture 06/29/25 Intake Note: Georgie is a 74 year old female who presents today in a wheel chair for a follow up of her left proximal humerus fracture, DOI 06/29/25. At he last visit she was instructed to continue use of sling as needed. Today patient reports that she is doing better, states no pain today. Patient currently resides at [facility]. Accompanied by: Daughter Allergies No Known Allergies (No Known Allergies*) Allergy (Verified 09/03/25 14:25) HPI Comments Details: History of Present Illness The patient is a 74-year-old female presenting for a six-week follow-up visit for a Left proximal humerus fracture, date of injury 06/29/2025. She was previously using a sling but has since discontinued it and is participating in physical therapy. The patient has a history of a stroke, which resulted in baseline left arm weakness and functional deficits prior to the fracture. Social History - Living Situation: The patient is currently at a rehab facility. 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 - Functional Status: she uses a walker at baseline [facility] Medical History Left hemiplegia History of stroke Renal calculi Cholelithiasis without cholecystitis Adrenal abnormality Acute cholecystitis Surgical History History of cataract surgery Fracture of right hip requiring operative repair History of brain surgery Family History Brother History of bone cancer History of pancreatic cancer Father History of skin cancer of unknown type Mother Diabetes mellitus Social History Housing: Apartment Alcohol intake: never Patient Tobacco Use Status: Never used Tobacco e-Cigarette/Vaping Use: Never Used Second Hand Smoke Exposure: No Advance Directives Date on File: 03/10/24 service: No Current occupational status: disabled Cognitive needs: Yes (Wheelchair, Walker) Hearing needs: No Vision needs: Yes (Reading Glasses) Review of Systems Narrative Review of Systems - Musculoskeletal: Denies any pain with use of the affected arm. Physical Exam Exam Exam: Physical Exam - Musculoskeletal: The patient is no longer wearing a sling. - Active range of motion of the left shoulder allows for bringing her hand to her mouth. - There are limitations in active range of motion, as she had some deficits prior to the injury. - Neurologic: Baseline left arm weakness secondary to a prior stroke is noted. Results Reviewed Results Reviewed: X-rays of the left shoulder obtained in the office today and reviewed by me show a minimally displaced proximal humerus fracture with stable alignment Assessment & Plan Assessment & Plan (1) Closed fracture of left proximal humerus: Code(s): S42.A - Unspecified fracture of upper end of left humerus, initial encounter for closed fracture Category: Medical Plan Plan 1. Shoulder Fracture Recent x-rays demonstrate stable fracture healing and good alignment. The patient is advised to discontinue the use of the sling. She will continue with physical therapy to work on range of motion and scapular stabilization. A follow-up appointment is scheduled in 6-8 weeks with repeat x-rays. 2. Gait Instability The patient is cleared to use a standard walker for ambulation as she starts to walk again. Her discharge from the current rehab facility is contingent on her progress with physical therapy and her ability to ambulate safely, as she is a fall risk and lives alone. The family was advised to discuss arranging increased home support, such as additional SURVEY ENGINEER hours, with a case management coordinator at her facility. Consent Patient was informed and verbally consented to the use of an ambient scribe for clinic note documentation during this visit. Orders: Orders XR shoulder LT min 2V Today M25.512 - Pain in left shoulder Coding Level of Care Code Global (97340) Diagnoses Closed fracture of left proximal humerus S42.A
--- OUTSIDE RECORDS SUMMARY | 2025-09-03 21:42 | XMS_ITS | Patient Health Record ---
Author Organization [facility] Address [address] [place] [address] Care Team Providers Care Prism Measurer Name Role Phone Elsa Denis Primary Care Provider Unavailab Demetri Hardwick Unavailable [phone] Allergies No Known Allergies Reason For Referral No Information Medications Medication SIG (Take, Route, Frequency, Duration) Notes Start Date End Date Status MiraLax (colon prep) 17 GM/SCOOP Powder mixed with Gatorade or Crystal Light orally begin at 5:00 p.m. the day before the procedure; Duration: 1 days 07/16/2025 Active Dulcolax (colon prep) 5 MG Tablet Delayed Release take 2 at 3:00 p.m and 2 at 7:00p.m. 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 Section Notes: Nonsmoker; no alcohol Nonsmoker; no alcohol Problems Problem Type SNOMED Code ICD Code Onset Dates Problem Status W/U Status Risk Notes Problem Pre-surgery evaluation (762979137) Other specified pre-operative examination (V72.83) Active confirmed Problem Colon cancer screening (257618690) Colon cancer screening (V76.51) Active confirmed Vital Signs Blood pressure diastolic 77 mm Hg 05/05/2025 Height 61.75 in 05/05/2025 Blood pressure systolic 111 mm Hg 05/05/2025 Weight 135 lbs 05/05/2025 BMI 24.89 kg/m2 05/05/2025 Procedures Procedure Date Ordered Date Performed Result Body Sit e COLONOSCOPY 05/05/2025 N/A Encounters Encounter Location Date Provider Diagnosis [facility] [address] [place], [place] [address] [phone] 05/05/2025 Demetri Redman Colon cancer screeni ng Z12.11 and Preprocedural examination Z01.818 [facility] [address] [place] [phone] 08/03/2025 Demetri Redman [facility] [address] [place] [phone] 01/05/2025 Demetri Redman [facility] [address] [place] [phone] 01/13/2025 Demetri Redman [facility] [address] [place] [phone] 05/05/2025 Demetri Redman Assessments Encounter Date Diagnosis [...] Test Test Name Order Date COLONOSCOPY 10/21/2014 Insurance Providers Payer Name Payer Address Payer Phone Subscriber Number Group Number Insured Name Patient Relationship to Insured Coverage Start Date Coverage End Date [facility] [address] [place] [phone] [id number] JONELLE ALBERTO Self - patient is the insured MEDICA[employer] OF [employer] [address] [place] [phone] [id number] JONELLE ALBERTO Self - patient is the insured Medical (General) History Medical History History ICD Code Screening Colonoscopy, 2002- negative ex cept for internal hemorrhoids Denies [place],DM,CVA,Lung disease,renal dise ase Osteoporosis urinary incontinence stroke Brain tumor-surgery as below---then XRT and MILLED RUBBER TENDER shunt Negative colonoscopy in 12/2014 Surgical History Surgery Date(Month/Year) SHELIA Laparotomy for intestinal obstruction 2 days after the hysterectomy right femur surgery--screws placed 2020 Brain surgery for brain tumor 2019
== END 2025-09-03 14:51 | disposition home or self-care (01) ==
LOC: HO.HOS 14:11
PROVIDERS: PCP Internal Medicine; Visit Provider Physician Assistant
DX: S42.202A Unspecified fracture of upper end of left humerus, initial encounter for closed fracture (principal)
CPT/HCPCS: 99213

== ENCOUNTER → 2025-09-03 14:13 | Outpatient (BNV) | payer OTHER, SELFPAY | PROVIDERS: Visit Provider Radiology Body Imaging | DX: S42.202A Unspecified fracture of upper end of left humerus, initial encounter for closed fracture (principal) | CPT/HCPCS: 73030 ==